=== PATIENT | male | born 1945 | race Caucasian/White ===

== ENCOUNTER → 2017-02-25 | Outpatient (CLI) | payer MEDICARE, OTHER ==
[~2017-02-25] MED LIST: ACET-2429 PO; AMLO5TAB2 PO; ASPI-586 PO; ASPI-875 PO; ATOR80TA2 PO; ATRV10T PO; CLOP75TA28 PO; FURO40TA4 PO; INSU100C4 SQ; INSU100I10 SQ; LISI-552 PO; LISI20TA PO; METO-272 PO; MULT-1029 PO; NAPR1TAB21 PO; NAPR220T66 PO; NIA500ERT PO; PANT40TA3 PO; PGLT30T PO; PIOG45TA PO; POTA10TA6 PO; SENN1TAB6 PO; SITA1TAB2 PO
== END ==
LOC: CARD 10:06
PROVIDERS: ATTEND Internal Medicine Cardiovascular Disease
DX: I25.10 Atherosclerotic heart disease of native coronary artery without angina pectoris (principal); I10 Essential (primary) hypertension; R06.02 Shortness of breath; I73.9 Peripheral vascular disease, unspecified
CPT/HCPCS: 93306

== ENCOUNTER → 2017-03-01 | Outpatient (CLI) | payer MEDICARE, OTHER ==
[~2017-03-01] VITALS: Ht 177.8 cm; Wt 94.8 kg
[~2017-03-01] MED LIST changes: +CATHETER FLUSH 10 ML SYR IV PRN; +REGADENOSON 0.4 MG/5 ML SYR (LEXISCAN) IV ONE
[2017-03-01 09:39] VITALS: BP 195/69
--- NOTE | 2017-03-01 12:48 | STRESS TEST ---
DATE OF SERVICE: 02/28/2017 PROCEDURE: Lexiscan Myoview Stress Test Baseline heart rate is 75. Baseline blood pressure is 195/69. Baseline EKG is sinus rhythm with no ischemic changes. IN SUMMARY: The patient was injected with 11.0 mCi of technetium-99 Myoview and the resting images were obtained. Then, the patient received 0.4 mg of Lexiscan followed by 32.0 mCi of technetium-99 Myoview. Throughout the test, there were no EKG changes. The resting and stress images were reviewed and compared in the short axis, horizontal long axis, and vertical long axis views. Review of the images showed slightly patchy uptake with mild decreased uptake at the mid to apical anterolateral wall with mild reversibility. SSS is 4, SDS 3, TID value 0.99. On the gated images, the left ventricle appeared to be dilated with end diastolic volume 156 mL and systolic volume 97 mL. Diffuse left ventricular hypokinesia with calculated ejection fraction 38%. IN CONCLUSION: 1. The patient tolerated Lexiscan well. 2. Mild ischemia involving the mid to apical anterolateral wall and inferolateral wall. 3. Prominent left ventricle with diffuse left ventricular hypokinesia with calculated ejection fraction 38%. Job ID: [id number] DocumentID: [id number] Dictated Date: 03/01/2017 11:55:04 [facility] Date: 03/01/2017 12:29:42 Dictated By: DEYSI GREY MD
== END ==
LOC: CARD 07:42
PROVIDERS: ATTEND Internal Medicine Cardiovascular Disease
DX: I25.10 Atherosclerotic heart disease of native coronary artery without angina pectoris (principal); I10 Essential (primary) hypertension; R06.02 Shortness of breath; I73.9 Peripheral vascular disease, unspecified
CPT/HCPCS: 78452; 93017

== ENCOUNTER 2019-07-19 08:44 | Day surgery (SDC) | payer MEDICARE, OTHER ==
[2019-07-19] VITALS (13 sets, daily range): BP systolic 136–173; BP diastolic 54–82
[~2019-07-19] VITALS: Ht 180 cm; Wt 87.0 kg
[~2019-07-19 08:44] MED LIST changes: -ACET-2429 PO; +ACET650T41 PO; +AMLO10TA7 PO; +ASPI-983 PO; +ASPI-999 PO; +ATOR10TA66 PO; -CATHETER FLUSH 10 ML SYR IV PRN; +CLON0.1T PO; +GABA-486 PO; +HYDR-3922 PO; -METO-272 PO; +METO50TA7 PO; +MTP100TCR PO; +MUPI22OI2 NS; +NIAC-4 PO; -REGADENOSON 0.4 MG/5 ML SYR (LEXISCAN) IV ONE; +SENN-229 PO; -SENN1TAB6 PO; +SITA1TBM7 PO; +TRM50T PO
[2019-07-19] MEDS ORDERED: NS IV 1000 ML 1,000 ML ONE (08:51)
[2019-07-19] MEDS ORDERED: LIDOCAINE 1% INJ 20 ML 20 ML VIAL ONE (08:51)
[2019-07-19] MEDS ORDERED: HEParin (CATH LAB) 2,000 ML IV ONE (08:51)
[2019-07-19] MEDS: NS IV 1000 ML 1,000 ML IV SCH ×3 (09:02→20:33)
[2019-07-19 09:20] LABS: HEMOGLOBIN 13.5 G/DL (13.3-17.7); MEAN PLATELET VOLUME 9.3 FL (7.4-10.4); RED CELL DISTRIBUTION WIDTH 13.7 % (10.0-14.5); WHITE BLOOD COUNT 9.6 10^3/uL (4.3-11.0)
[2019-07-19 09:36] LABS: PROTHROMBIN TIME PATIENT 13.2 SEC (12.2-14.7)
[2019-07-19] MEDS ORDERED: HYDR-3923 PO (09:40)
[2019-07-19] MEDS ORDERED: MULT-1030 PO (09:40)
[2019-07-19] MEDS ORDERED: SITA1TBM7 PO (09:40)
[2019-07-19 09:42] LABS: ALBUMIN 4.2 GM/DL (3.2-4.5); BILIRUBIN,TOTAL 0.5 MG/DL (0.1-1.0); CALCIUM 9.3 MG/DL (8.5-10.1); CREATININE SERUM 1.59 MG/DL (0.60-1.30); POTASSIUM 4.4 MMOL/L (3.6-5.0); TOTAL PROTEIN 7.5 GM/DL (6.4-8.2)
[2019-07-19] MEDS ORDERED: fentaNYL INJECTION 100 MCG/2 ML AMP ONE (12:17)
[2019-07-19] MEDS ORDERED: MIDAZOLAM 5 MG/5 ML (VERSED) VIAL ONE (12:17)
[2019-07-19] MEDS ORDERED: HEParin 1000 UNIT/ML (10ML VIAL) FOR BOLUS ONE (12:17)
[2019-07-19] MEDS ORDERED: NITRO DRIP 25000 MCG/D5W 250 ML IV ONE (13:15)
--- NOTE | 2019-07-19 14:42 | Cardiac Procedure Note-CS/ASA ---
Pre-Procedure Note Pre-Op Procedure Note H&P Reviewed The H&P was reviewed, patient examined and no changes noted. Date H&P Reviewed: Jul 19, 2019 Time H&P Reviewed: 11:00 Conscious Sedation Pre-Proced Time 11:00 ASA Score 3 For ASA 3 and 4: Consider anesthesia and medical clearance. Also, for patients with a history of failed moderate sedation consider anesthesia. Airway Lungs Heart ASA score ASA 1: a normal healthy patient ASA 2: a patient with a mild systemic disease (mid diabetes, controlled hypertension, obesity x ASA 3: a patient with a severe systemic disease that limits activity (angina, COPD, prior Myocardial infarction) ASA 4: a patient with an incapacitating disease that is a constant threat to life (CHF, renal failure) ASA 5: a moribund patient not expected to survive 24 hrs. (ruptured aneurysm) ASA 6: a declared brain- patient whose organs are being harvested. For emergent operations, add the letter E after the classification Mallampati Classification Grade 3 Sedation Plan Analgesia, Amnesia, Plan communicated to team members, Discussed options with patient/fam, Discussed risks with patient/fam The patient is an appropriate candidate to undergo the planned procedure, sedation, and anesthesia. The patient immediately re-assessed prior to indication. DEYSI GREY MD Jul 19, 2019 14:42
[2019-07-19] MEDS ORDERED: PATIENT MAY USE OWN MEDS, ALL PO SCH (14:45)
[2019-07-19] MEDS ORDERED: ASPIRIN 325 MG (5 GR) TABLET ONE (14:47)
[2019-07-19] MEDS ORDERED: CLOPIDOGREL 300 MG (PLAVIX) TABLET PO ONE (14:47)
--- NOTE | 2019-07-19 14:49 | Peripheral Report ---
Peripheral Report Physician (s)/Qualitative Field Coordinator (s) Physician DEYSI GREY MD Pre-Procedure Diagnosis Pre-Procedure Diagnosis: Peripheral arterial disease Post-Procedure Note Procedure Start Date: Jul 19, 2019 Name of Procedure: Abdominal aortogram with bilateral runoff Third order Additional imaging Stent to the left popliteal artery 2 stents to the left SFA Balloon angioplasty to the left popliteal, SFA and left iliac Findings/Procedure Note PROCEDURE NOTE: 74-year-old gentleman with extensive peripheral arterial disease, history of left iliac stent, right renal artery stent, has been having leg pain and abnormal HALLIE decided to proceed with peripheral angiogram possible angioplasty. After explaining the procedure to the patient, all pros and cons were explained, all questions were answered. The patient signed the consent and then he was placed on the cardiac catheterization laboratory. The patient was placed on the cardiac catheterization laboratory. Groin was prepped SL fashion local anesthesia was used. Sheath placed in the right femoral artery, 5 Vietnamese, pigtail catheter advanced to the abdominal aorta and abdominal aortogram was done, runoff to the right leg was done through a pigtail catheter, rim catheter advanced and runoff to the left leg was done then I advanced long stork wire and exchanged the 5 Vietnamese sheath into 6 Vietnamese 45 sheath, 4000 units of heparin given, patient has multiple segment of severe stenosis in the left SFA and left popliteal artery, multiple balloon angioplasty were done then deployment of absolute Pro 6 x 100 at the left popliteal, another 6 x 80 in the proximal SFA and then another 6 x 60 overlapping with the other one. Postdilatation with 5-100 balloon was done. At the end of the procedure angina gram showed excellent results with good flow down to the foot, some disease at the distal tibial arteries, I was unable to pullback the sheath, after multiple attempts without success I advanced the dilator again and try to pull the sheath and at that time there was a tear in the sheath. I removed the dilator and advanced this trait catheter down to the SFA and and try to pull the sheath without success at that point I advanced 4 x 60 balloon and did balloon inflation in the left iliac artery and using the balloon as an anchor I was able to push the sheath back to the abdominal aorta then the balloon deflated and the sheath and the balloon were removed and a short 6 Vietnamese sheath was placed I left the stork wire in the left leg and advanced the rim catheter then did runoff to the leg then another imaging to the iliac artery then advanced the rim catheter to the abdominal aorta and evaluated the bifurcation. No complication noted. Closure device was deployed without complication. FINDINGS: 1. Mild atherosclerotic disease in the abdominal aorta, patent stent to the right renal artery, mild disease in the left renal artery, normal mesenteric arteries. Heavy calcification of the bifurcation. 2. Patent stent in the left iliac artery, severe stenosis at multiple segment of the left SFA and popliteal artery, balloon angioplasty with multiple inflation then deployment of 3 stents starting proximally with absolute Pro 6 x 60 followed by 6 x 80 and down at the popliteal artery 6 x 100 with excellent results. An excellent flow down to the foot, some disease at the tibial artery was noted. 3. Mild to moderate disease at the right proximal SFA, more significant disease at the mid to right SFA. Moderate disease at the trifurcation. CONCLUSIONS: 1. Severe peripheral arterial disease with complex intervention deployment of 3 stents at the left maximal and mid and distal SFA and popliteal artery using absolute Pro 6 x 60 followed by 6 x 80 and distally 6 x 100 with excellent results. 2. Moderate severe stenosis at the mid right SFA, moderate disease at the trifurcation 3. Patent stent in the right renal artery, mild disease of the left renal artery, heavily calcified abdominal aorta and bifurcation. 4. Disruption of the left long 6 Vietnamese sheath without the ability of removing the sheath after multiple attempts I was able to push it back and remove it using balloon inflated in the left iliac artery and used as an anchor to pull the sheath. DISCUSSION AND RECOMMENDATIONS: Continue on aspirin and Plavix and maximize medical therapy Anesthesia Type: Conscious Sedation Estimated blood loss (mL): 50 ml Contrast Amount: 100 ml Total Radiation Dose: 755 mGy Post-Procedure Diagnosis Post-operative diagnosis: Claudication/peripheral artery disease Renal artery stenosis Hypertension Coronary artery disease DEYSI GREY MD Jul 19, 2019 14:49
[2019-07-19] MEDS: hydrALAZINE (APRESOLINE) 25 MG TAB PO SCH (18:40)
[2019-07-19] MEDS: KCL 10 MEQ TAB (MICRO K) PO SCH (20:33)
[2019-07-19] MEDS ORDERED: GABAPENTIN 100 MG (NEURONTIN) CAP PO SCH (21:00)
[2019-07-19] MEDS ORDERED: PANTOPRAZOLE 40 MG (PROTONIX) TAB PO SCH (21:00)
[2019-07-19] MEDS ORDERED: INSULIN GLARGINE HUM REC ANLOG 42 UNIT SQ SCH (21:00)
[2019-07-19] MEDS ORDERED: [UNRECOGNIZED DRUG - OTHER] SQ SCH (21:00)
[2019-07-20] VITALS: BP 150/69
[2019-07-20] MEDS: NS IV 1000 ML 1,000 ML IV SCH ×2 (03:14→05:12)
[2019-07-20 04:00] VITALS: BP 178/62
[2019-07-20 04:25] LABS: HEMOGLOBIN 12.3 G/DL (13.3-17.7); MEAN PLATELET VOLUME 9.1 FL (7.4-10.4); RED CELL DISTRIBUTION WIDTH 13.9 % (10.0-14.5); WHITE BLOOD COUNT 8.8 10^3/uL (4.3-11.0)
[2019-07-20 04:52] LABS: CALCIUM 8.7 MG/DL (8.5-10.1); CREATININE SERUM 1.48 MG/DL (0.60-1.30); POTASSIUM 3.9 MMOL/L (3.6-5.0)
[2019-07-20] MEDS: hydrALAZINE (APRESOLINE) 25 MG TAB PO SCH (05:13)
[2019-07-20] MEDS: KCL 10 MEQ TAB (MICRO K) PO SCH (05:13)
[2019-07-20] MEDS ORDERED: MULTIVIT W/MINERALS TAB (THERAGRAN M) PO SCH (07:00)
--- NOTE | 2019-07-20 07:59 | Cardiology Progress Note ---
Subjective Date Seen by Provider: Jul 20, 2019 Time Seen by Provider: 07:56 Subjective/Events-last exam Patient is laying down in bed, feeling better. No new complaint, groin is healing well Review of Systems General: No Chills, No Night Sweats, No Fatigue, No Malaise, No Appetite, No Other HEENT: No Head Aches, No Visual Changes, No Eye Pain, No Ear Pain, No Dysph renato, No Sinus Congestion, No Post Nasal Drip, No Sore Throat, No Other Pulmonary: No Dyspnea, No Cough, No Pleuritic Chest Pain, No Other Cardiovascular: No: Chest Pain, Palpitations, Orthopnea, Paroxysmal Noc. Dyspnea, Edema, Lt Headedness, Other Objective-Cardiology Exam Last Set of Vital Signs Vital Signs 07/20/19 04:00 Temp 36.6 Pulse 71 Resp 16 B/P (MAP) 178/62 (100) Pulse Ox 97 O2 Delivery Room Air Capillary Refill : Less Than 3 Seconds I&O Intake and Output 07/20/19 00:00 Intake Total 200 ml Output Total 0 ml Balance 200 ml Intake Oral 200 ml Output Urine Total 0 ml General: Alert, Oriented X3, Cooperative HEENT: Atraumatic, PERRLA Neck: Supple, No JVD, No Thyromegaly Lungs: Clear to Auscultation, Normal Air Movement Heart: Regular Rate, Normal S1, Normal S2, No Murmurs Abdomen: Normal Bowel Sounds, Soft, No Tenderness, No Hepatosplenomegaly, No Masses Extremities: No Clubbing, No Cyanosis, No Edema, Normal Pulses, No Tenderness/Swelling Skin: No Rashes, No Breakdown, No Significant Lesion Neuro: Normal Gait, Normal Speech, Strength at 5/5 X4 Ext, Normal Tone, Sensati on Intact Psych/Mental Status: Mental Status NL, Mood NL Results Lab Laboratory Tests 07/19/19 09:10 07/20/19 04:03 A/P-Cardiology Admission Diagnosis Peripheral arterial disease Hypertension Hyperlipidemia Coronary artery disease Assessment/Plan Peripheral arterial disease, extensive disease, status post complex intervention with deployment of 3 stents in the left SFA with excellent results. Difficulty removing the sheath from the groin. 1. Severe peripheral arterial disease with complex intervention deployment of 3 stents at the left maximal and mid and distal SFA and popliteal artery using absolute Pro 6 x 60 followed by 6 x 80 and distally 6 x 100 with excellent results. 2. Moderate severe stenosis at the mid right SFA, moderate disease at the trifu rcation 3. Patent stent in the right renal artery, mild disease of the left renal artery, heavily calcified abdominal aorta and bifurcation. 4. Disruption of the long 6 Macedonian sheath without the ability of removing the sheath after multiple attempts I was able to push it back and remove it using b alloon inflated in the left iliac artery and used as an anchor to pull the sheath. Hypertension, resume all medication monitor blood pressure Chronic kidney insufficiency, educated on drinking fluid Hyperlipidemia, monitor lipids Coronary artery disease Clinical Quality Measures DVT/VTE Risk/Contraindication: Risk Factor Score Per Nursin RFS Level Per Nursing on Admit: 2=Moderate DEYSI GREY MD Jul 20, 2019 07:59
--- NOTE | 2019-07-20 08:01 | Discharge Inst-Post CATH ---
Discharge Inst-CATH/EP Problems Reviewed?: Yes Post Cardiac Cath/EP D/C Inst Follow Up/Plan Appointment with Dr. GREY's office next week <b>CARDIAC CATH/EP PROCEDURE DISCHARGE INSTRUCTIONS</b> ACTIVITY * Go Home directly and rest. * Limit activity of the leg (or wrist if it was used) for 7 days including aerobics, swimming, jogging, bicycling, etc. * Restrict stair-climbing for 7 days if possible, if not, climb up with your non-cath leg, then bring together on the same step. * Avoid lifting, pushing, pulling or excessive movement of the affected extremity for 7 days. * Customary sexual activity may be resumed after 2 days-use caution not to use a position that strains or causes pain to the affected extremity. * No driving for 24 hours. * NO SMOKING. * Avoid straining for bowel movements for 7 days. * Gentle walking on level ground is allowed. * Returning to work will depend on the type of procedure and the results. Your doctor will discuss this with you. CALL YOUR DOCTOR FOR ANY OF THE FOLLOWING: *If bleeding from the puncture site occurs- Apply gentle pressure to site with clean cloth and call your doctor or EMS. * If a knot or lump forms under the skin, increases in size, or causes pain. * If bruising appears to be worsening or moving further down your leg instead of disappearing. * Temperature above 101 F. CARE OF YOUR GROIN INCISION; * Bruising or purple discoloration of the skin near the puncture site is common. * You may shower only, no bathtub bathing for 5 days. Be careful to avoid slipping as your leg may feel stiff. * If a closure device was used on your femoral artery, please see the attached guide regarding care of the device and your leg. * Leave dressing on FOR 24 hours. CARE OF YOUR WRIST INCISION; * Bruising or purple discoloration of the skin near the puncture site is common. * You may shower. * DO NOT submerge wrist. * Leave dressing on FOR 24 hours. DEYSI GREY MD Jul 20, 2019 08:01
[2019-07-20] MEDS ORDERED: amLODIPine 10 MG (NORVASC) TAB PO SCH (09:00)
[2019-07-20] MEDS ORDERED: FUROSEMIDE 40 MG (LASIX) TAB PO SCH (09:00)
[2019-07-20] MEDS ORDERED: ASPIRIN E.C. 81 MG (ECOTRIN) TAB PO SCH (09:00)
[2019-07-20] MEDS ORDERED: meTOprolol SUCCINATE 100 MG (TOPROL XL) TAB PO SCH (09:00)
[2019-07-20] MEDS ORDERED: lisINopril 20 MG (PRINIVIL) TABLET PO SCH (09:00)
[2019-07-20] MEDS ORDERED: CLOPIDOGREL 75 MG (PLAVIX) TABLET PO SCH (09:00)
== END 2019-07-20 08:40 | disposition home or self-care (01) ==
LOC: CATH 08:44 → CSD 16:30 → CATH 07-20 08:40
PROVIDERS: ATTEND Internal Medicine Cardiovascular Disease
DX: I70.0 Atherosclerosis of aorta (principal); I70.1 Atherosclerosis of renal artery; I25.10 Atherosclerotic heart disease of native coronary artery without angina pectoris; I77.1 Stricture of artery; I13.0 Hypertensive heart and chronic kidney disease with heart failure and stage 1 through stage 4 chronic kidney disease, or unspecified chronic kidney disease; N18.2 Chronic kidney disease, stage 2 (mild); I08.3 Combined rheumatic disorders of mitral, aortic and tricuspid valves; I25.2 Old myocardial infarction; I65.29 Occlusion and stenosis of unspecified carotid artery; I42.9 Cardiomyopathy, unspecified; I50.22 Chronic systolic (congestive) heart failure; E11.22 Type 2 diabetes mellitus with diabetic chronic kidney disease; E78.5 Hyperlipidemia, unspecified; M19.90 Unspecified osteoarthritis, unspecified site; M51.36 Other intervertebral disc degeneration, lumbar region; M47.896 Other spondylosis, lumbar region; Z79.02 Long term (current) use of antithrombotics/antiplatelets; Z79.899 Other long term (current) drug therapy; Z79.82 Long term (current) use of aspirin; Z79.84 Long term (current) use of oral hypoglycemic drugs; Z87.891 Personal history of nicotine dependence
CPT/HCPCS: 36248; 36415; 37220; 37226; 75630; 80048; 80053; 80061; 82962; 85027; 85347; 85610; 85730; 87081

== ENCOUNTER → 2020-06-07 | Outpatient (CLI) | payer MEDICARE, OTHER ==
[~2020-06-07] MED LIST changes: +AMLO-251 PO; -AMLO10TA7 PO; +ASPI-1238 PO; -ASPI-983 PO; +CLN.1T PO; -CLON0.1T PO; +HYDR-3923 PO; +MULT-1030 PO; -PANT40TA3 PO; +PANT40TA52 PO
== END ==
LOC: CARD 12:47
PROVIDERS: ATTEND Physician Assistant
DX: I25.10 Atherosclerotic heart disease of native coronary artery without angina pectoris (principal)
CPT/HCPCS: 93306

== ENCOUNTER 2021-09-07 10:46 | Inpatient (IN) | payer MEDICARE, OTHER ==
[~2021-09-07] VITALS: Ht 177 cm; Wt 86.4 kg
[~2021-09-07 10:46] MED LIST changes: -LISI-552 PO; +LISI20TA26 PO; +POTA-160 PO; -POTA10TA6 PO
[2021-09-07] MEDS ORDERED: HEParin 1000 UNIT/ML (10ML VIAL) FOR BOLUS ONE (10:53)
[2021-09-07] MEDS ORDERED: NS IV 1000 ML 1,000 ML ONE (10:53)
[2021-09-07] MEDS ORDERED: MIDAZOLAM 5 MG/5 ML (VERSED) VIAL ONE (10:53)
[2021-09-07] MEDS ORDERED: LIDOCAINE 2% 20 ML (XYLOCAINE) VIAL ONE (10:53)
[2021-09-07] MEDS ORDERED: fentaNYL INJ 100 MCG/2 ML AMP ONE (10:53)
[2021-09-07] MEDS ORDERED: HEParin (CATH LAB) 2,000 ML IV ONE (10:54)
[2021-09-07] MEDS ORDERED: NITRO DRIP 25000 MCG/D5W 0 ML IV ONE (11:12)
[2021-09-07] MEDS ORDERED: CLOPIDOGREL 300 MG (PLAVIX) TABLET PO ONE (11:34)
--- NOTE | 2021-09-07 11:42 | Conscious Sedation/ASA ---
Conscious Sedation Pre-Proced Time 10:35 ASA Score 3 For ASA 3 and 4: Consider anesthesia and medical clearance. Also, for patients with a history of failed moderate sedation consider anesthesia. Airway Lungs Heart ASA score ASA 1: a normal healthy patient ASA 2: a patient with a mild systemic disease (mid diabetes, controlled hypertension, obesity x ASA 3: a patient with a severe systemic disease that limits activity (angina, COPD, prior Myocardial infarction) ASA 4: a patient with an incapacitating disease that is a constant threat to life (CHF, renal failure) ASA 5: a moribund patient not expected to survive 24 hrs. (ruptured aneurysm) ASA 6: a declared brain- patient whose organs are being harvested. For emergent operations, add the letter E after the classification Mallampati Classification Grade 3 Sedation Plan Analgesia, Amnesia, Plan communicated to team members, Discussed options with patient/fam, Discussed risks with patient/fam The patient is an appropriate candidate to undergo the planned procedure, sedation, and anesthesia. The patient immediately re-assessed prior to indication. DEYSI GREY MD Sep 07, 2021 11:42
[2021-09-07] MEDS ORDERED: PATIENT MAY USE OWN MEDS, ALL PO SCH (11:45)
--- NOTE | 2021-09-07 11:49 | Consultation-Cardiology ---
HPI-Cardiology Cardiology Consultation Date of Consultation 09/07/21 Date of Admission Time Seen by Provider: 11:42 Indication: Acute myocardial infarction HPI 76 years old gentleman with extensive history of coronary artery disease, peripheral arterial disease and malignant hypertension. Went to [facility] emergency room for increasing shortness of breath, had mild retrosternal chest pain, had dynamic EKG with T wave changes with ST elevation in the anterior wall resolved then recurred prior to his transfer to the hospital. On my evaluation he denied any chest pain, still having significant shortness of breath requiring 15 L of oxygen. I started him on Vapotherm. He received antibiotic in the emergency room and [place] in addition to Lovenox and aspirin Home Medications & Allergies Allergies: Coded Allergies: No Known Drug Allergies (Unverified , 07/19/15) Home Medication List Reviewed: Yes [id number]-Bqhcer Hx Patient Social History Marital Status: Employed/Student: retired Former smoker/When Quit: May 31, 2000 Type Used: Cigarettes Recent Hopitalizations: Yes (15 YEARS AGO) Immunizations Up To Date Tetanus Booster (TDap): More than 5yrs Date of Pneumonia Vaccine: Feb 03, 2017 Date of Influenza Vaccine: Feb 15, 2019 Past Medical History Discussed below Family Medical History Family History: Myocardial infarction 19 FATHER 19 MOTHER Review of Systems-General Review of Systems Constitutional: see HPI, malaise, weakness EENTM: see HPI, no symptoms reported Respiratory: see HPI, cough, dyspnea on exertion, orthopnea Cardiovascular: see HPI, chest pain; No edema, No Hx of Intervention, No palpitations, No syncope, No vascular heart diseas, No other Gastrointestinal: no symptoms reported, see HPI Genitourinary: no symptoms reported, see HPI Musculoskeletal: no symptoms reported, see HPI Skin: no symptoms reported, see HPI Psychiatric/Neurological: No Symptoms Reported, See HPI Reviewed Test Results Reviewed Test Results Lab Labs from [place] were reviewed Physical Exam Physical Exam Vital Signs Capillary Refill : Height, Weight, BMI Height: 5'11.00" Weight: 212lbs. 9.0oz. [id number]; 26.85 BMI Method:Stated General Appearance: No Apparent Distress, WD/WN Eyes: Bilateral Eye Normal Inspection, Bilateral Eye PERRL, Bilateral Eye EOMI HEENT: PERRL/EOMI, TMs Normal, Normal ENT Inspection, Pharynx Normal, Moist Mucous Membranes Neck: Full Range of Motion, Normal Inspection, Non Tender, Supple, Carotid Bruit Respiratory: Chest Non Tender, Normal Breath Sounds, No Accessory Muscle Use, No Respiratory Distress Cardiovascular: Regular Rate, Rhythm, No Edema, No JVD, Normal Peripheral Pulses, Systolic Murmur, Gallop/S3 Gastrointestinal: Normal Bowel Sounds, No Organomegaly, No Pulsatile Mass, Non Tender, Soft Back: Normal Inspection, No CVA Tenderness, No Vertebral Tenderness Extremity: Normal Capillary Refill, Normal Inspection, Normal Range of Motion, Non Tender, No Calf Tenderness, No Pedal Edema Neurologic/Psychiatric: Alert, Oriented x3, No Motor/Sensory Deficits, Normal Mood/Affect Skin: Normal Color, Warm/Dry Lymphatic: No Adenopathy A/P-Cardiology Admission Diagnosis Acute myocardial infarction Coronary artery disease Diabetes mellitus Hypertension Assessment/Plan Acute myocardial infarction with ST elevation occurred on arrival of the ambulance to bring him to [place] requiring emergency cardiac catheterization carried out with stenting of the LAD. We will continue monitoring, started on aspirin and Plavix, received Lovenox in [place] and heparin in the [employer] Acute respiratory failure combination of heart failure and pneumonia. Started on antibiotic, I will add diuretics and monitor Pneumonia, managed by primary care team. Hospitalist was notified Sepsis, elevated lactic acid. Coronary artery disease history of stent to the LAD using Promus 2.2512 mm done in July 2015, at that time he had 50 percent right coronary artery stenosis that was treated conservatively. Cardiac catheterization March 10, 2017 revealing 90% stenosis at the mid circumflex artery, 60% stenosis proximally, successful balloon angioplasty then stent deployment to the mid circumflex artery using 2.523 mm Xience Alpine to the mid artery, the proximal portion was improved to 20% residual with balloon angioplasty. Patent stent in the LAD, mild disease in the right coronary artery nonobstructive disease. Cardiac catheterization was done on September 07, 2021 showing severe ostial and proximal LAD successful angioplasty and stenting using wendi point stent 2.75 x 28 expanded to 3 mm with excellent results. Mid LAD has moderate stenosis distal LAD has severe stenosis, there is moderate stenosis in the mid circumflex t coronary artery and mild to moderate stenosis in the mid right coronary artery Malignant hypertension, resistant to multiple medication, I will restart his home medication monitor tolerance and response Episodes of dizziness, lightheaded at home. We will monitor his blood pressure response to blood pressure medication Renal artery stenosis-angiogram done March 10, 2017 revealed severe right renal artery stenosis. Underwent renal angiogram with stenting to the right renal artery using HERCULINK ELITE [id number] with excellent results minimal residual stenosis in March 17, 2017. Continue to monitor. Intolerance to clonidine secondary to severe dizziness. Peripheral vascular disease- Angiogram done March 10, 2017 revealed moderate disease to SFA. Was unable to visualize arteries below the knee secondary to limiting contrast exposure. Peripheral angiogram on March 24, 2017 revealing severe left iliac artery stenosis, Balloon angioplasty and deployment OMNILINK ELITE 7X39 expanded to 7.3 with excellent results, mild to moderate disease in the left lower extremity down to the trifurcation. Patent stent in the right iliac artery with alwe-ba-mwiggtie disease down to the trifurcation. Had abnormal HALLIE in August 2017. Complaining of increased claudication pain, HALLIE is worse in May. Did complex intervention in July 2019 with severe disease and deployment of 3 stents of the left SFA and popliteal artery using absolute Pro 6 x 60 followed by 6 x 80 and distally 6 x 100 with excellent results. Moderate to severe stenosis at the midright SFA with moderate disease at the trifurcation, patent stent in the right renal artery, mild disease at the left renal artery, heavily calcified abdominal aorta, complication with disruption of the long 6 Puerto Rican sheath that require significant maneuvering to remove the full catheter. Excellent results. ABIs done in September 2019, denies any increased claudication pain, will continue to monitor. Baseline EKG abnormality with sinus rhythm, first-degree AV block, left ventricular hypertrophy pattern early repolarization Acute on chronic renal insufficiency, history of chronic kidney disease stage III. Continue to monitor Congestive heart failure, chronic compensated left ventricular systolic dysfunction, last echo was done on July 04, 2019 showing normal LV size with ejection fraction 60 percent, left atrial dilatation, aortic valve sclerosis, mild mitral regurgitation, estimated PA pressure 25 mmHg. I will repeat 2D echo History of stroke over 20 years ago with mild residual facial droop and occasional slurred speech, no other residual weakness Hyperlipidemia, maintained on Lipitor 10 mg daily and niacin daily, controlled. Continue to monitor. Diabetes mellitus, hold Metformin and I recommend discontinuation of Metformin, followed and managed by primary care physician Arthritis, degenerative disc disease, back pain and lower extremity pain, possible referral for orthopedic surgeon History of tobaccoism stopped over 20 years ago. DEYSI GREY MD Sep 07, 2021 11:49
--- NOTE | 2021-09-07 11:58 | Cardiac Cath Report ---
Cardiac Cath Report Physician (s)/Vegetable Washer (s) Physician DEYSI GREY MD Pre-Procedure Diagnosis Pre-Procedure Diagnosis: Acute RI Post-Procedure Note Name of Procedure: Coronary angiogram Emergency stenting of the LAD Findings/Procedure Note PROCEDURE NOTE: 76 years old gentleman with extensive cardiac history, went to [facility] emergency room and noted to have elevation in ST segment in the anterior leads that resolved fairly quickly while he was in [place]. Troponin was elevated. Patient was getting ready for a transfer to the intensive care unit and EMS did another EKG showed another ST elevation in V2 and V3. I was notified and we brought him for emergency cardiac catheterization. After explaining the procedure to the patient, all pros and cons were explained, all questions were answered. The patient signed the consent and then he was placed on the cardiac catheterization laboratory. Groin was prepped SL fashion local anesthesia was used. Sheath placed in the right femoral artery. Mairlyn right and left catheter were used to access the coronary system. I was unable to cross the aortic valve with a pigtail. Patient received 5000 units of heparin, he received Lovenox in [place] emergency room. EBU 3.5 guide was advanced to the left coronary system, BMW wire was advanced and parked distally, predilatation with 2.5 x 20 mm balloon was done, d oor to balloon time was 44 minutes. Door to establishing flow was 40 minutes. Then I deployed wendi point stent 2.75 x 28 mm expanded to 3.0 mm, angiogram showed excellent results At the end of the procedure the sheath was removed. Closure device was deployed FINDINGS: Hemodynamics LV was not measured, aortic valve was not crossed Aorta 107/40 mean of 53 ANATOMY: Left Main is free of obstructive disease Left Anterior Descending is moderate in size, stent in the mid LAD is patent, there is severe ostial and proximal LAD stenosis, successful balloon angioplasty then stenting using wendi point stent 2.75 x 28 mm expanded to 3.0 mm with good results, distal LAD has severe stenosis that is too small for intervention Left Circumflex is calcified artery with moderate stenosis in the midportion. Right Coronary Artery is dominant artery with mild to moderate disease at the midportion Fluoroscopy showed heavy calcification, I was unable to advance J-wire across the iliac and and lower abdominal aorta, used a RentHopq wire and exchange wire afterward CONCLUSION: 1. Acute myocardial infarction with emergency stenting of the ostial/proximal LAD with excellent results 2. Severe ostial and proximal LAD stenosis with successful deployment of wendi point stent 2.75 x 28 mm expanded to 3.0 mm with excellent results. Severe stenosis at the distal LAD very small artery not amendable to intervention 3. Patent stent in the circumflex artery with moderate stenosis at the distal circumflex artery 4. Dominant right coronary artery with mild to moderate disease nonobstructive disease 5. Heavily calcified abdominal aorta and iliac arteries DISCUSSION AND RECOMMENDATION: Continue on aspirin and Plavix, I will increase Lipitor to 80 mg daily and monitor tolerance and response Anesthesia Type: Conscious Sedation Estimated blood loss (mL): 35 ml Contrast Amount: 100 ml Total Radiation Dose: 1227 mGy Post-Procedure Diagnosis Post-operative diagnosis: Acute myocardial infarction Coronary artery disease Pneumonia Sepsis DEYSI GREY MD Sep 07, 2021 11:58
[2021-09-07] MEDS ORDERED: ONDANSETRON 4 MG/2 ML (SDV) Z0FRAN ONE (12:46)
[2021-09-07] MEDS: NS IV 1000 ML 1,000 ML IV SCH ×2 (12:52→22:41)
[2021-09-07] MEDS ORDERED: ONDANSETRON 4 MG/2 ML (SDV) Z0FRAN IVP PRN (13:00)
[2021-09-07] MEDS ORDERED: CLOPIDOGREL 300 MG (PLAVIX) TABLET PO NR (14:30)
[2021-09-07] MEDS: hydrALAZINE (APRESOLINE) 25 MG TAB PO SCH ×2 (15:02→22:46)
--- NOTE | 2021-09-07 15:27 | Tele-ICU Consult ---
History of Present Illness History of Present Illness Date Seen by Provider: Sep 07, 2021 Time Seen by Provider: 15:27 Date of Admission (Tele-ICU Physician , consultation) Available chart/ vitals / labs / Images reviewed H&P is from er notes Patient's information available about PMH, Shx, Fhx allergy reviewed in EMR. ROS as per chart and RN report Now in ICU, hemodynamically stable Video assessment done using teleICU camera, rest of exam as per RN Discussed with RN. Consultants: osiel Hospital course: 09/07 to [facility] with SOB - dx with nstemia and PNA 08/29- s/p cath with PCI to LAD , on VT 40 L 100% A/P STEMI -09/07 with known CAD - s/p cath 09/07 with PCI to LAD - as per [facility] -lovenox in [facility] given , asa -ECHO Elev lactate ( 28 with normal 20 as per [facility] essay range - ? due to hypoxia - patient was hypertensive 200/132 on admission - doubt severe sepsis Acute hypoxic resp failure - PNA vs CHF vs ? PE - presented with SOB and hypoxia in [place] - no cxr report available - empiricalluy given cefepime - follow - BNP is sligtly elevaated - will follow cxr here - cont on Vapotherm now - ? diuresis Suspected PNA - NEG for covid , mucoplasma and flu in [facility] - follow on abx now , order cxr and pct DM II - ISS , follow ISAI/CKD - cr elev to 1.8 with baseline 1.5 - moinitor Lines : (Central Line Necessity Reviewed) Mccord: OG: Nutrition: Analgesia: Anxiety/ delirium VTE Prophylaxis: received eyal full dose - follow post cath orders Stress Ulcer Prophylaxis: po Plans in collaboration with bedside consultants and IM MDs. Discussed with RN to reach out if any questions or concerns A total of 31 minutes of critical care time was devoted to this patient today, required to treat and/or prevent further deterioration of critical care co ndition ( as above ) . Reason for Visit: Acute myocardial infarction Allergies and Home Medications Allergies Coded Allergies: No Known Drug Allergies (Unverified , 07/19/15) Home Medications Amlodipine Besylate 10 Mg Tablet, 10 MG PO DAILY, (Reported) Aspirin 81 Mg Tablet., 81 MG PO DAILY, (Reported) Atorvastatin Calcium 10 Mg Tablet, 10 MG PO 1600, (Reported) Clopidogrel Bisulfate 75 Mg Tablet, 75 MG PO 1600, (Reported) Furosemide 40 Mg Tablet, 40 MG PO DAILY, (Reported) Gabapentin 100 Mg Capsule, 100 MG PO HS, (Reported) Hydralazine HCl 25 Mg Tablet, 25 MG PO TIDAC, (Reported) Insulin Glargine,Hum.rec.anlog 100 Unit/1 Ml Insuln.pen, 42 UNIT SQ BID, (Reported) Lisinopril 20 Mg Tablet, 20 MG PO DAILY, (Reported) Metoprolol Succinate 100 Mg Tab.er.24h, 100 MG PO DAILY, (Reported) Multivits,Ca,Min/Iron/FA/Lycop 1 Each Tablet, 1 EACH PO DAILY, (Reported) Pantoprazole Sodium 40 Mg Tablet.dr, 40 MG PO HS, (Reported) Potassium Chloride 10 Meq Tablet.er, 10 MEQ PO BID, (Reported) Sitagliptin Phos/Metformin HCl 1 Each Tbmp.24hr, 1 EACH PO DAILY, (Reported) Past Medical/Social/Family Hx Patient Social History Marrital Status: Employed/Student: retired Tobacco Use?: No Use of E-Cig and/or Vaping dev: No Substance use?: No Alcohol Use?: No Pt stated abuse/neglect: No Immunizations Up To Date Influenza Vaccine Up-to-Date: Yes; Up-to-Date Date of Pneumonia Vaccine: Feb 03, 2017 Current Status Advance Directives: Yes Advance Directive Location: Copy placed in chart Communicates: Verbally Primary Language: [place] Islander Preferred Spoken Language: [place] Islander Is interpretation needed?: No Review of Systems Constitutional: see HPI Focused Exam Height, Weight, BMI Height: 5'11.00" Weight: 212lbs. 9.0oz. 96.006837iq; 27.76 BMI Method:Stated Exam Exam Patient acknowledged, consented, and participated in this virtual visit which was conducted using real time audio/video Vital Signs Date Time Temp Pulse Resp B/P (MAP) Pulse Ox O2 Delivery O2 Flow Rate FiO2 09/07/21 15:09 97 Vapotherm 40.00 100 09/07/21 15:08 Vapotherm 40.00 100 09/07/21 15:00 80 16 132/60 97 Vapotherm 30.00 100.00 09/07/21 14:00 71 15 110/50 93 Vapotherm 30.00 100.00 09/07/21 13:00 71 18 107/50 94 Vapotherm 30.00 100.00 09/07/21 12:52 78 09/07/21 12:00 Vapotherm 40.00 100 09/07/21 12:00 80 11 120/73 94 Vapotherm 30.00 100.00 09/07/21 11:45 83 112/71 Vapotherm 30.00 100.00 Height & Weight Height: 5'11.00" Weight: 212lbs. 9.0oz. 96.240721ma; 27.76 BMI Method:Stated General Appearance: No Apparent Distress, WD/WN HEENT: PERRL/EOMI, TMs Normal, Normal ENT Inspection, Pharynx Normal, Moist Mucous Membranes Neck: Full Range of Motion, Normal Inspection, Non Tender, Supple, Carotid Bruit Respiratory: Chest Non Tender, Normal Breath Sounds, No Accessory Muscle Use, No Respiratory Distress Cardiovascular: Regular Rate, Rhythm, No Edema, No JVD, Normal Peripheral Pulses, Systolic Murmur, Gallop/S3 Extremity: Normal Capillary Refill, Normal Inspection, Normal Range of Motion, Non Tender, No Calf Tenderness, No Pedal Edema Neurologic/Psychiatric: Alert, Oriented x3, No Motor/Sensory Deficits, Normal Mood/Affect Skin: Normal Color, Warm/Dry Lymphatic: No Adenopathy Assessment/Plan Assessment/Plan ` MIKE DELEON MD Sep 07, 2021 15:27
[2021-09-07] MEDS ORDERED: INSU100I10 SQ (15:56)
[2021-09-07] MEDS ORDERED: LISI20TA26 PO (15:56)
--- NOTE | 2021-09-07 16:15 | Diagnostic Imaging Report ---
INDICATION: Hypoxia. COMPARISON: Prior examination from 03/10/2017. FINDINGS: There are marked bilateral perihilar infiltrates likely reflecting failure. There is no pleural effusion or pneumothorax. There is cardiomegaly. The mediastinum is unremarkable. IMPRESSION: 1. Marked perihilar pulmonary infiltrates, likely failure although pneumonia could conceivably have a similar appearance. Recommend clinical correlation. 2. Cardiomegaly. Dictated by: Dictated on workstation # [id number]
[2021-09-07] MEDS: CEFEPIME INJECTION 1,000 MG in NS (IVPB) 50 ML IV SCH ×2 (16:56→22:46)
[2021-09-07] MEDS ORDERED: FUROSEMIDE 40 MG/4 ML INJ (LASIX) IVP SCH (17:00)
[2021-09-08] MEDS: CEFEPIME INJECTION 1,000 MG in NS (IVPB) 50 ML IV SCH ×3 (04:12→20:44)
[2021-09-08 05:05] LABS: HEMATOCRIT 37 % (40-54); MEAN CORPUSCULAR HEMOGLOBIN 26 pg (25-34); MEAN CORPUSCULAR HGB CONC 30 g/dL (32-36); MEAN CORPUSCULAR VOLUME 86 fL (80-99); MEAN PLATELET VOLUME 8.9 fL (9.0-12.2); PLATELET COUNT 488 10^3/uL (130-400); WHITE BLOOD COUNT 12.6 10^3/uL (4.3-11.0)
[2021-09-08 05:15] LABS: POTASSIUM 5.3 MMOL/L (3.6-5.0)
[2021-09-08] MEDS ORDERED: FUROSEMIDE 40 MG/4 ML INJ (LASIX) IVP ONE (05:15)
[2021-09-08 05:16] LABS: CALCIUM 8.8 MG/DL (8.5-10.1)
[2021-09-08 05:20] LABS: CREATININE SERUM 2.02 MG/DL (0.60-1.30)
[2021-09-08] MEDS: hydrALAZINE (APRESOLINE) 25 MG TAB PO SCH ×3 (06:08→23:11)
[2021-09-08 06:47] VITALS: BP 153/82
[2021-09-08] MEDS: NS IV 1000 ML 1,000 ML IV SCH ×2 (07:58→17:45)
[2021-09-08] MEDS: FUROSEMIDE 40 MG/4 ML INJ (LASIX) IVP SCH ×2 (07:58→17:05)
--- NOTE | 2021-09-08 08:36 | Cardiology Progress Note ---
Subjective Date Seen by Provider: Sep 08, 2021 Time Seen by Provider: 08:30 Subjective/Events-last exam Patient was seen at bedside, laying down comfortably Still on Vapotherm and having shortness of breath. Still having mild chest pain Review of Systems General: No Chills, No Night Sweats; Fatigue, Malaise; No Appetite, No Other HEENT: No Head Aches, No Visual Changes, No Eye Pain, No Ear Pain, No Dysphasia, No Sinus Congestion, No Post Nasal Drip, No Sore Throat, No Other Pulmonary: Dyspnea; No Cough, No Pleuritic Chest Pain, No Other Cardiovascular: Chest Pain; No: Palpitations, Orthopnea, Paroxysmal Noc. Dyspnea, Edema, Lt Headedness, Other Objective-Cardiology Exam Last Set of Vital Signs Vital Signs 09/08/21 09/08/21 09/08/21 06:00 06:47 07:56 Temp 36.7 Pulse 107 Resp 29 B/P (MAP) 153/82 Pulse Ox 96 O2 Delivery Vapotherm O2 Flow Rate 30.00 FiO2 65 I&O Intake and Output 09/08/21 00:00 Intake Total 700 ml Output Total 950 ml Balance -250 ml Intake Oral 700 ml Output Urine Total 950 ml Daily Weight Change No General: Alert, Oriented X3, Cooperative HEENT: Atraumatic, PERRLA Neck: Supple, No JVD, No Thyromegaly Lungs: Clear to Auscultation, Normal Air Movement Heart: Regular Rate, Normal S1, Normal S2, Other (Systolic murmur at the left sternal border) Abdomen: Normal Bowel Sounds, Soft, No Tenderness, No Hepatosplenomegaly, No Masses Extremities: No Clubbing, No Cyanosis, No Edema, Normal Pulses, No Tenderness/Swelling Skin: No Rashes, No Breakdown, No Significant Lesion Neuro: Normal Gait, Normal Speech, Strength at 5/5 X4 Ext, Normal Tone, Sensation Intact Psych/Mental Status: Mental Status NL, Mood NL Results Lab Laboratory Tests 09/08/21 04:50 A/P-Cardiology Admission Diagnosis Acute myocardial infarction Coronary artery disease Diabetes mellitus Hypertension Assessment/Plan Acute myocardial infarction with ST elevation occurred on arrival of the ambulance to bring him to [place] requiring emergency cardiac catheterization carried out with stenting of the LAD. Continue on aspirin and Plavix, continue to monitor Acute respiratory failure combination of heart failure and pneumonia. Receiving Rocephin and Lasix I increased Lasix dose to 40 mg twice daily and will monitor tolerance and response Pneumonia, managed by primary care team. Sepsis, elevated lactic acid. Could be secondary to acute myocardial infarction heart failure Congestive heart failure, acute left ventricular systolic dysfunction, ischemic cardiomyopathy Echocardiogram showed diffuse left ventricular hypokinesia with ejection fraction 30 to 35%, biatrial enlargement, pulmonary hypertension with PA pressure 50 to 55 mmHg, heavily calcified mitral valve with mild mitral regurgitation, calcified aortic valve with no significant stenosis Started on diuretics and beta-blockers, cannot tolerate NOVA inhibitor and/or ARB due to renal failure. Coronary artery disease history of stent to the LAD using Promus 2.2512 mm done in July 2015, at that time he had 50 percent right coronary artery stenosis that was treated conservatively. Cardiac catheterization March 10, 2017 revealing 90% stenosis at the mid circumflex artery, 60% stenosis proximally, successful balloon angioplasty then stent deployment to the mid circumflex artery using 2.523 mm Xience Alpine to the mid artery, the proximal portion was improved to 20% residual with balloon angioplasty. Patent stent in the LAD, mild disease in the right coronary artery nonobstructive disease. Cardiac catheterization was done on September 07, 2021 showing severe ostial and proximal LAD successful angioplasty and stenting using wendi point stent 2.75 x 28 expanded to 3 mm with excellent results. Mid LAD has moderate stenosis distal LAD has severe stenosis, there is moderate stenosis in the mid circumflex t coronary artery and mild to moderate stenosis in the mid right coronary artery Malignant hypertension, resistant to multiple medication, continue to monitor blood pressure after starting all his medications Episodes of dizziness, lightheaded at home. We will monitor his blood pressure response to blood pressure medication Renal artery stenosis-angiogram done March 10, 2017 revealed severe right pilar l artery stenosis. Underwent renal angiogram with stenting to the right renal artery using HERCULINK ELITE 7X18 with excellent results minimal residual stenosis in March 17, 2017. Continue to monitor. Intolerance to clonidine secondary to severe dizziness. Peripheral vascular disease- Angiogram done March 10, 2017 revealed moderate disease to SFA. Was unable to visualize arteries below the knee secondary to limiting contrast exposure. Peripheral angiogram on March 24, 2017 revealing severe left iliac artery stenosis, Balloon angioplasty and deployment OMNILINK ELITE 7X39 expanded to 7.3 with excellent results, mild to moderate disease in the left lower extremity down to the trifurcation. Patent stent in the right iliac artery with ofyf-by-riitsuxp disease down to the trifurcation. Had abnormal HALLIE in August 2017. Complaining of increased claudication pain, HALLIE is worse in May. Did complex intervention in July 2019 with severe disease and deployment of 3 stents of the left SFA and popliteal artery using absolute Pro 6 x 60 followed by 6 x 80 and distally 6 x 100 with excellent results. Moderate to severe stenosis at the midright SFA with moderate disease at the trifurcation, patent stent in the right renal artery, mild disease at the left renal artery, heavily calcified abdominal aorta, complication with disruption of the long 6 [place]awk sheath that require significant maneuvering to remove the full catheter. Excellent results. ABIs done in September 2019, denies any increased claudication pain, will continue to monitor. Baseline EKG abnormality with sinus rhythm, first-degree AV block, left ventricular hypertrophy pattern early repolarization Acute on chronic renal insufficiency, history of chronic kidney disease stage III. Deterioration in renal function due to aggressive diuresis. Continue to monitor History of stroke over 20 years ago with mild residual facial droop and occasional slurred speech, no other residual weakness Hyperlipidemia, maintained on Lipitor 10 mg daily and niacin daily, controlled. Continue to monitor. Diabetes mellitus, hold Metformin and I recommend discontinuation of Metformin, followed and managed by primary care physician Arthritis, degenerative disc disease, back pain and lower extremity pain, pos sible referral for orthopedic surgeon History of tobaccoism stopped over 20 years ago. DEYSI GREY MD Sep 08, 2021 08:36
[2021-09-08] MEDS: ASPIRIN E.C. 81 MG (ECOTRIN) TAB PO SCH (08:49)
[2021-09-08] MEDS: CLOPIDOGREL 75 MG (PLAVIX) TABLET PO SCH (08:50)
[2021-09-08] MEDS: meTOprolol SUCCINATE 100 MG (TOPROL XL) TAB PO SCH (08:50)
[2021-09-08] MEDS: lisINopril 20 MG (PRINIVIL) TABLET PO SCH (08:50)
[2021-09-08] MEDS: amLODIPine 10 MG (NORVASC) TAB PO SCH (08:50)
[2021-09-08] MEDS ORDERED: cefTRIAXone 1 GM PRE-MIX 50 ML IV SCH (09:00)
--- NOTE | 2021-09-08 09:03 | Tele-ICU Progress Note ---
Subjective Date Seen by a Provider: Sep 08, 2021 Time Seen by a Provider: 07:00 Subjective/Events-last exam This virtual visit was conducted using real time audio/video. Thank you for asking us to see this patient for respiratory insufficiency due to pna. Also STEMI s/p stenting x 2. PE: VSS. O2 sat 96% on VT 30 LPM, 65%. HEENT: No obvious masses, adenopathy or JVD. Chest: crackles on auscultation. CV: RRR S1 S2 No murmur or added sounds. Abd: Non-tender. Bowel sounds Y. : Unremarkable. Mccord N. THIRD OFFICER/psychiatric: Grossly intact. No obvious focal findings. Extremities: No edema. Capillary refill < 3 seconds. Skin: unremarkable. Results: Elevated WCC 12.6, BUN 30, Creat 2.02, Trop 7.433. Decreased HB 11.0. CXR: B infilts.. Available chart/ vitals / labs / images reviewed. Video assessment done using teleICU camera, rest of exam as per RN. A/P: Respiratory insufficiency: Continue present management with Vapotherm. Wean as quoc. Cont. Duonebs. Monitor for increasing oxygenation needs and/or need for intubation. Critical Care: critically ill patient. Cont. ASA, Plavix, abx, lasix, norv., statin, metop., lisinopril. Discussed with LATANYA Ellis. Asked RN to reach out to eICU if any questions or concerns later. Time spent with patient/coordination of care with other health professionals (mins): 25 Sepsis Event Evaluation Height, Weight, BMI Height: 5'11.00" Weight: 212lbs. 9.0oz. 96.645564vf; 27.76 BMI Method:Stated Exam Exam Patient acknowledged, consented, and participated in this virtual visit which was conducted using real time audio/video Vital Signs Date Time Temp Pulse Resp B/P (MAP) Pulse Ox O2 Delivery O2 Flow Rate FiO2 09/08/21 07:56 36.7 09/08/21 06:47 37.5 107 96 09/08/21 06:47 96 Vapotherm 30.00 65 09/08/21 06:00 114 29 153/82 87 Vapotherm 30.00 65.00 09/08/21 05:00 112 14 182/70 89 Vapotherm 30.00 65.00 09/08/21 04:42 37.5 09/08/21 04:00 95 Vapotherm 30.00 70 09/08/21 04:00 95 14 141/54 93 Vapotherm 30.00 65.00 09/08/21 04:00 93 Vapotherm 30.00 65 09/08/21 03:00 99 19 143/56 97 Vapotherm 30.00 65.00 09/08/21 02:00 105 20 130/114 96 Vapotherm 30.00 65.00 09/08/21 01:00 86 09/08/21 01:00 86 15 122/48 92 Vapotherm 30.00 65.00 09/08/21 00:00 95 Vapotherm 30.00 70 09/08/21 00:00 89 14 117/56 97 Vapotherm 30.00 65.00 09/07/21 23:20 36.4 Vapotherm 30.00 65.00 09/07/21 23:00 87 19 132/57 94 Vapotherm 30.00 70.00 09/07/21 22:42 94 Vapotherm 30.00 70 09/07/21 22:00 82 14 112/52 91 Vapotherm 30.00 70.00 09/07/21 21:00 89 20 118/47 97 Vapotherm 30.00 70.00 09/07/21 20:00 84 18 127/60 91 Vapotherm 30.00 70.00 09/07/21 20:00 95 Vapotherm 30.00 70 09/07/21 20:00 37.0 09/07/21 19:57 Vapotherm 30.00 70.00 09/07/21 19:15 87 Vapotherm 20.00 70.00 09/07/21 19:00 85 19 103/50 90 Vapotherm 20.00 60.00 09/07/21 19:00 87 09/07/21 18:45 Vapotherm 09/07/21 18:00 90 19 109/51 96 Vapotherm 20.00 60.00 09/07/21 17:00 82 33 134/56 94 Vapotherm 20.00 60.00 09/07/21 16:47 Vapotherm 20.00 70.00 09/07/21 16:00 80 12 146/69 100 Vapotherm 30.00 100.00 09/07/21 15:09 97 Vapotherm 40.00 100 09/07/21 15:08 Vapotherm 40.00 100 09/07/21 15:00 80 16 132/60 97 Vapotherm 30.00 100.00 09/07/21 14:00 71 15 110/50 93 Vapotherm 30.00 100.00 09/07/21 13:00 71 18 107/50 94 Vapotherm 30.00 100.00 09/07/21 12:52 78 09/07/21 12:00 Vapotherm 40.00 100 09/07/21 12:00 80 11 120/73 94 Vapotherm 30.00 100.00 09/07/21 11:45 83 112/71 Vapotherm 30.00 100.00 I & O 09/08/21 07:00 Intake Total 1050 ml Output Total 1325 ml Balance -275 ml Height & Weight Height: 5'11.00" Weight: 212lbs. 9.0oz. 96.285499ru; 27.76 BMI Method:Stated General Appearance: No Apparent Distress, WD/WN HEENT: PERRL/EOMI, TMs Normal, Normal ENT Inspection, Pharynx Normal, Moist Mucous Membranes Neck: Full Range of Motion, Normal Inspection, Non Tender, Supple, Carotid Bruit Respiratory: Chest Non Tender, Normal Breath Sounds, No Accessory Muscle Use, No Respiratory Distress Cardiovascular: Regular Rate, Rhythm, No Edema, No JVD, Normal Peripheral Pulses, Systolic Murmur, Gallop/S3 Capillary Refill: Less Than 3 Seconds Extremity: Normal Capillary Refill, Normal Inspection, Normal Range of Motion, Non Tender, No Calf Tenderness, No Pedal Edema Neurologic/Psychiatric: Alert, Oriented x3, No Motor/Sensory Deficits, Normal Mood/Affect Skin: Normal Color, Warm/Dry Lymphatic: No Adenopathy Results Lab Laboratory Tests 09/08/21 04:50 Assessment/Plan Assessment/Plan See free text. Critical Care: Critically Ill Patient MAGUE COHEN MD Sep 08, 2021 09:02
--- NOTE | 2021-09-08 09:13 | History & Physical ---
History of Present Illness History of Present Illness Reason for visit/HPI PT IS A 76 Y/O MALE WHO WAS ADMITTED TO THE HOSPITAL IN TRANSFER FROM [facility]. HE WAS FOUND TO HAVE ST ELEVATION, AND THE TRANSFER WAS FOR ACUTE MYOCARDIAL INFARCTION. PT WAS FOUND TO HAVE PULMONARY EDEMA, AND POSSIBLE PNEUMONIA ON FURTHER EVALUATION. THE PT WAS TAKEN FOR ACUTE RUBBER FLAP [facility] INTERVENTION ON ADMISSION. Date of Admission Sep 07, 2021 at 11:39 Date Seen by a Provider: Sep 08, 2021 Time Seen by a Provider: 09:00 I consulted on this patient on 09/08/21 09:11 Attending Physician Ana Ryan MD Admitting Physician Rosanne Turcios MD Consult EICU Allergies and Home Medications Allergies Coded Allergies: No Known Drug Allergies (Unverified , 07/19/15) Patient Home Medication List Home Medication List Reviewed: Yes Amlodipine Besylate (Amlodipine Besylate) 10 Mg Tablet, 10 MG PO DAILY, (Reported) Entered as Reported by: GELY ROBERTS on 03/10/17 1149 Last Action: Reviewed Aspirin (Aspirin EC) 81 Mg Tablet.dr, 81 MG PO DAILY, (Reported) Entered as Reported by: IVETT PAULINO on 03/17/17 0923 Last Action: Reviewed Atorvastatin Calcium (Atorvastatin Calcium) 10 Mg Tablet, 10 MG PO 1600, (Reported) Entered as Reported by: GELY ROBERTS on 03/10/17 1150 Last Action: Reviewed Clopidogrel Bisulfate (Clopidogrel) 75 Mg Tablet, 75 MG PO 1600, (Reported) Entered as Reported by: GELY ROBERTS on 03/10/17 1147 Last Action: Reviewed Furosemide (Furosemide) 40 Mg Tablet, 40 MG PO DAILY, (Reported) Entered as Reported by: GELY ROBERTS on 03/10/17 1146 Last Action: Reviewed Insulin Glargine,Hum.rec.anlog (Lantus Solostar) 100 Unit/1 Ml Insuln.pen, 45 UNIT SQ BID, (Reported) Entered as Reported by: PATY BEAULIEU on 09/07/21 420 Last Action: New Order Lisinopril (Lisinopril) 20 Mg Tablet, 20 MG PO BID, (Reported) Entered as Reported by: PATY BEAULIEU on 09/07/211555 Last Action: New Order Metoprolol Succinate (Metoprolol Succinate) 100 Mg Tab.er.24h, 100 MG PO DAILY, (Reported) Entered as Reported by: GELY ROBERTS on 03/10/171147 Last Action: Reviewed Multivits,Ca,Min/Iron/FA/Lycop (Centrum Men's Tablet) 1 Each Tablet, 1 EACH PO DAILY, (Reported) Entered as Reported by: EDDIE STEEL on 07/19/19939 Last Action: Reviewed Pantoprazole Sodium (Pantoprazole Sodium) 40 Mg Tablet.dr, 40 MG PO HS, (Reported) Entered as Reported by: GELY ROBERTS on 03/10/171144 Last Action: Reviewed Potassium Chloride (Klor-Con 10) 10 Meq Tablet.er, 10 MEQ PO BID, (Reported) Entered as Reported by: GELY ROBERTS on 03/10/171148 Last Action: Reviewed Discontinued Medications Gabapentin (Gabapentin) 100 Mg Capsule, 100 MG PO HS, (Reported) Discontinued Reason: No Longer Taking Entered as Reported by: IEVTT PAULINO on 03/17/17932 Last Action: Discontinued Hydralazine HCl (Hydralazine HCl) 25 Mg Tablet, 25 MG PO TIDAC, (Reported) Discontinued Reason: No Longer Taking Entered as Reported by: EDDIE STEEL on 07/19/19939 Last Action: Discontinued Insulin Glargine,Hum.rec.anlog (Lantus Solostar) 100 Unit/1 Ml Insuln.pen, 42 UNIT SQ BID, (Reported) Discontinued Reason: No Longer Taking Entered as Reported by: IVETT PAULINO on 03/17/17922 Last Action: Discontinued Lisinopril (Lisinopril) 20 Mg Tablet, 20 MG PO DAILY, (Reported) Discontinued Reason: No Longer Taking Entered as Reported by: GELY ROBERTS on 03/10/171147 Last Action: Discontinued Sitagliptin Phos/Metformin HCl (Janumet Xr 100-1,000 mg Tablet) 1 Each Tbmp.24hr, 1 EACH PO DAILY, (Reported) Discontinued Reason: No Longer Taking Entered as Reported by: EDDIE STEEL on 07/19/19939 Last Action: Discontinued Past Fbjlrzd-Uhkaxn-Vsjxmg Hx Patient Social History Marrital Status: single Living Status: AT [facility] Employed/Student: retired Tobacco Use?: No Use of E-Cig and/or Vaping dev: No Substance use?: No Alcohol Use?: No Pt feels they are or have been: No Immunizations Up To Date Date of Influenza Vaccine: Feb 15, 2019 Date of Pneumonia Vaccine: Feb 03, 2017 Current Status Advance Directives: Yes Advance Directive Location: Copy placed in chart Communicates: Verbally Primary Language: Palestinian Preferred Spoken Language: Palestinian Is interpretation needed?: No Past Medical History Coronary Artery Disease, High Cholesterol, Hypertension, Peripheral Vascular Stroke (WITH SHORT TERM MEMORY LOSS) Degenerate Disk Disease, Arthritis Diabetes, Insulin dep Blood Disorders: No Family Medical History Reviewed Nursing Family Hx Myocardial infarction 19 FATHER 19 MOTHER Review of Systems Constitutional: No chills, No fever, No malaise, No weakness EENTM: No hoarseness, No throat pain Respiratory: No cough; dyspnea on exertion, short of breath Cardiovascular: chest pain, Hx of Intervention, vascular heart diseas Gastrointestinal: No abdominal pain, No constipation, No diarrhea, No loss of appetite, No nausea Genitourinary: no symptoms reported Musculoskeletal: muscle weakness (GENERALIZED) Skin: no symptoms reported Psychiatric/Neurological: Pre-Existing Deficit (COGNITIVE DEFICIT); Denies Weakness All Other Systems Reviewed Negative Unless Noted: Yes Physical Exam Vital Signs Vital Signs - First Documented 09/07/21 09/07/21 09/07/21 11:45 12:00 20:00 Temp 37.0 Pulse 83 Resp 11 B/P (MAP) 112/71 Pulse Ox 94 O2 Delivery Vapotherm O2 Flow Rate 30.00 100.00 FiO2 100 Capillary Refill : Less Than 3 Seconds Height, Weight, BMI Height: 5'11.00" Weight: 212lbs. 9.0oz. 96.304752kg; 27.76 BMI Method:Stated General Appearance: WD/WN, Mild Distress (DUE TO SHORTNESS OF BREATH AND CHEST PAIN) HEENT: PERRL/EOMI, Pharynx Normal Neck: Full Range of Motion, Non Tender, Supple Respiratory: Chest Non Tender, Crackles (IN BASES, DIFFICULT TO AUSCULTATE DUE TO PT MAKING NOISE WITH EXHALE) Cardiovascular: Regular Rate, Rhythm, Normal Peripheral Pulses Gastrointestinal: Normal Bowel Sounds, No Organomegaly, No Pulsatile Mass, Non Tender, Soft Rectal: Deferred Back: Normal Inspection Neurologic/Psychiatric: Alert, Other (ORIENTED TO PERSON, PLACE, FLAT AFFECT) Skin: Normal Color, Warm/Dry Lymphatic: No Adenopathy Assessment/Plan Assessment and Plan CHEST PAIN STEMI DYSPNEA CHRONIC HYPERTENSION ELEVATED TROPONIN PNEUMONIA DIABETES MELLITUS ESOPHAGEAL REFLUX VASCULAR DEMENTIA CHEST PAIN WITH DYSPNEA AND STEMI - MANAGED BY DR. RYAN - SEE HIS PROCEDURE NOTE FROM HEART CATH ON ADMISSION - SMALL VESSEL DISEASE, AND DISEASE OF LAD. - MONITOR SYMPTOMS. - RESTART ANTIHYPERTENSIVES CHRONIC HYPERTENSION - RESTART ANTIHYPERTENSIVE MEDICATIONS. PNEUMONIA - PT ON ROCEPHIN, CONTINUE, MONITOR SERIAL CXR'S DIABETES MELLITUS - FSBS, SLIDING SCALE, CHECK HGBA1C ESOPHAGEAL REFLUX - CONTINUE WITH PPI THERAPY. VASCULAR DEMENTIA - SUPPORTIVE CARE, PT WILL NEED TO CONSIDER GOING TO LONG-TERM FOR SHORT TERM FOR THERAPY ON DISCHARGE. Admission Diagnosis CHEST PAIN STEMI DYSPNEA CHRONIC HYPERTENSION ELEVATED TROPONIN PNEUMONIA DIABETES MELLITUS ESOPHAGEAL REFLUX VASCULAR DEMENTIA Admission Status: Inpatient Order (span 2 midnights) Reason for Inpatient Admission: ADMISSION FOR STEMI, HEART FAILURE, WILL REQUIRE 72+ HOURS IN THE HOSPITAL. ROSANNE TURCIOS MD Sep 08, 2021 09:13
[2021-09-08 10:43] LABS: ABG BASE EXCESS -4.8 MMOL/L (-2.5-2.5); ABG OXYGEN SATURATION 93 % (94-100); ABG PCO2 39 MMHG (35-45); ABG PO2 75 MMHG (79-93); ABG TCO2 21.1 MMOL/L (21.0-31.0)
[2021-09-08 10:45] LABS: ABG PH 7.33 (7.37-7.43); INSPIRED O2 30L/65%; VENTILATOR NO
[2021-09-08 10:46] LABS: PATIENT TEMP 37.5
[2021-09-08] MEDS: LORazepam INJ 2 MG/ML (ATIVAN) VIAL IVP PRN (11:18)
[2021-09-08] MEDS: RT-ALBUTEROL/IPRATROPIUM 3 ML (DUONEB) VIAL INH PRN (14:40)
[2021-09-08] MEDS ORDERED: morphine INJ 10 MG/ML 1ML (SYR OR VIAL) IVP STA ×2 (16:50→18:14)
[2021-09-08] MEDS ORDERED: morphine INJ 4 MG/ML 1 ML (VIAL/SYRINGE) ONE (16:52)
[2021-09-08] MEDS ORDERED: D5W IV SOLUTION (EXCEL) 250 ML IV ONE (16:56)
[2021-09-08] MEDS ORDERED: NITRO DRIP 25000 MCG/D5W 250 ML IV ONE ×2 (16:57→19:26)
[2021-09-08] MEDS ORDERED: FUROSEMIDE 40 MG/4 ML INJ (LASIX) IVP NR (17:00)
[2021-09-08] MEDS: NITRO DRIP 25000 MCG/D5W 250 ML IV SCH (17:01)
[2021-09-08] MEDS ORDERED: morphine INJ 4 MG/ML 1 ML (VIAL/SYRINGE) IVP ONE (17:15)
--- NOTE | 2021-09-08 17:18 | Diagnostic Imaging Report ---
INDICATION: Shortness of breath. COMPARISON: 09/07/2021. FINDINGS: A single view of the chest demonstrates essentially unchanged bilateral pulmonary infiltrates. There is no pneumothorax. Trace pleural effusions are seen. The heart remains enlarged. There is no pneumothorax. IMPRESSION: Unchanged aeration. Dictated by: Dictated on workstation # [id number]
[2021-09-08] MEDS ORDERED: morphine INJ 4 MG/ML 1 ML (VIAL/SYRINGE) IV STA (18:15)
[2021-09-08] MEDS ORDERED: PANTOPRAZOLE 40 MG (PROTONIX) VIAL IV NR (18:15)
[2021-09-08] MEDS ORDERED: HEParin 1000 UNIT/ML (10ML VIAL) FOR BOLUS ONE (19:25)
[2021-09-08] MEDS ORDERED: HEParin (CATH LAB) 2,000 ML IV ONE (19:25)
[2021-09-08] MEDS ORDERED: LIDOCAINE 1% INJ 20 ML VIAL ONE (19:25)
[2021-09-08] MEDS ORDERED: MIDAZOLAM 5 MG/5 ML (VERSED) VIAL ONE (19:25)
[2021-09-08] MEDS ORDERED: fentaNYL INJ 100 MCG/2 ML AMP ONE (19:25)
[2021-09-08] MEDS ORDERED: NS IV 1000 ML 1,000 ML ONE (19:40)
[2021-09-08] MEDS ORDERED: VERAPAMIL 5 MG/2 ML (CALAN) VIAL IV ONE (19:50)
[2021-09-08] MEDS ORDERED: NS IV 1000 ML 1,000 ML IV SCH (20:15)
[2021-09-08] MEDS: ISOSORBIDE MONONITRATE 30 MG (IMDUR) TAB PO SCH ×2 (20:15→23:11)
--- NOTE | 2021-09-08 20:15 | Cardiac Cath Report ---
Cardiac Cath Report Physician (s)/Sexer (s) Physician DEYSI GREY MD Pre-Procedure Diagnosis Pre-Procedure Diagnosis: CAD Post-Procedure Note Procedure Start Date: Sep 08, 2021 Name of Procedure: Coronary angiogram Findings/Procedure Note PROCEDURE NOTE: 76 years old gentleman admitted with acute myocardial infarction on September 07, 2021 underwent stent to the ostium of the LAD with proximal LAD long stent. Was doing better, had 1 episode of nausea and vomiting then started to have some chest pain this morning, progressed in the afternoon became severe chest pain 10/10 in intensity. Given multiple doses of morphine and started on nitroglycerin drip without improvement in the pain. I decided to take him back to the [facility] to reevaluate his coronary anatomy. After explaining the procedure to the patient, all pros and cons were explained, all questions were answered. The patient signed the consent and then he was placed on the cardiac catheterization laboratory. Groin was prepped SL fashion local anesthesia was used. Sheath placed in the right radial artery, [place] cat heter was advanced over baby J-wire and engaged the left main coronary artery, angiogram was done. At the end of the procedure the sheath was removed. Closure device vascular band was used FINDINGS: ANATOMY: Left Main is free of obstructive disease Left Anterior Descending has patent stent in the proximal and ostial LAD, patent stent in the mid LAD and moderate disease distally Left Circumflex is moderate in size with moderate disease at the midportion Right Coronary Artery was not evaluated CONCLUSION: 1. Patent stent in the ostial/proximal LAD, patent stent in the mid LAD with moderate disease in the distal LAD, small vessel disease was noted in the diagonal and septal branches 2. Moderate disease in the mid circumflex artery DISCUSSION AND RECOMMENDATION: Chest pain is out of proportion, severe at this time. Blood pressure is stable, it could be related to pleurisy or esophageal spasm or erosion due to his vomiting. I will start him on Carafate in addition to Protonix and adding Imdur and monitor tolerance and response Anesthesia Type: Conscious Sedation Estimated blood loss (mL): 5 ml Contrast Amount: 21 ml Total Radiation Dose: 213 mGy Post-Procedure Diagnosis Post-operative diagnosis: Chest pain Coronary artery disease Hypertension Hyperlipidemia DEYSI GREY MD Sep 08, 2021 20:15
--- NOTE | 2021-09-08 20:18 | Conscious Sedation/ASA ---
Conscious Sedation Pre-Proced Time 19:00 ASA Score 3 For ASA 3 and 4: Consider anesthesia and medical clearance. Also, for patients with a history of failed moderate sedation consider anesthesia. Airway Lungs Heart ASA score ASA 1: a normal healthy patient ASA 2: a patient with a mild systemic disease (mid diabetes, controlled hypertension, obesity ASA 3: a patient with a severe systemic disease that limits activity (angina, COPD, prior Myocardial infarction) ASA 4: a patient with an incapacitating disease that is a constant threat to life (CHF, renal failure) ASA 5: a moribund patient not expected to survive 24 hrs. (ruptured aneurysm) ASA 6: a declared brain- patient whose organs are being harvested. For emergent operations, add the letter E after the classification Mallampati Classification Grade 3 Sedation Plan Analgesia, Amnesia, Plan communicated to team members, Discussed options with patient/fam, Discussed risks with patient/fam The patient is an appropriate candidate to undergo the planned procedure, sedation, and anesthesia. The patient immediately re-assessed prior to indication. DEYSI GREY MD Sep 08, 2021 20:18
[2021-09-08] MEDS: SUCRALFATE 1 GM (CARAFATE) TAB PO SCH ×2 (21:00→23:10)
[2021-09-08] MEDS: RT-ALBUTEROL/IPRATROPIUM 3 ML (DUONEB) VIAL INH SCH (22:09)
[2021-09-09] MEDS: NITRO DRIP 25000 MCG/D5W 250 ML IV SCH (02:44)
[2021-09-09] MEDS: NITROGLYCERIN 0.4 MG SL TABS BTL 25'S SL PRN ×2 (02:50→03:14)
[2021-09-09] MEDS: LORazepam INJ 2 MG/ML (ATIVAN) VIAL IVP PRN ×2 (04:16→10:25)
[2021-09-09] MEDS: CEFEPIME INJECTION 1,000 MG in NS (IVPB) 50 ML IV SCH ×3 (04:16→20:35)
[2021-09-09] MEDS: NS IV 1000 ML 1,000 ML IV SCH ×2 (04:18→13:45)
[2021-09-09] MEDS: RT-ALBUTEROL/IPRATROPIUM 3 ML (DUONEB) VIAL INH PRN ×2 (04:25→14:49)
[2021-09-09 05:16] LABS: HEMATOCRIT 30 % (40-54); MEAN CORPUSCULAR HEMOGLOBIN 26 pg (25-34); MEAN CORPUSCULAR HGB CONC 30 g/dL (32-36); MEAN CORPUSCULAR VOLUME 85 fL (80-99); MEAN PLATELET VOLUME 9.3 fL (9.0-12.2); PLATELET COUNT 426 10^3/uL (130-400); WHITE BLOOD COUNT 11.7 10^3/uL (4.3-11.0)
[2021-09-09 05:41] LABS: POTASSIUM 5.1 MMOL/L (3.6-5.0)
[2021-09-09 05:42] LABS: CALCIUM 8.3 MG/DL (8.5-10.1)
[2021-09-09 05:47] LABS: CREATININE SERUM 2.38 MG/DL (0.60-1.30)
[2021-09-09 05:49] LABS: MAGNESIUM 2.2 MG/DL (1.6-2.4)
[2021-09-09] MEDS: hydrALAZINE (APRESOLINE) 25 MG TAB PO SCH ×3 (06:04→20:35)
[2021-09-09] MEDS: FUROSEMIDE 40 MG/4 ML INJ (LASIX) IVP SCH ×2 (06:04→19:52)
[2021-09-09] MEDS: SUCRALFATE 1 GM (CARAFATE) TAB PO SCH ×4 (06:04→20:35)
--- NOTE | 2021-09-09 07:38 | Diagnostic Imaging Report ---
EXAMINATION: Chest 1 view HISTORY: Pulmonary edema COMPARISON: 09/08/2021 FINDINGS: Heart size and pulmonary vasculature are stable. Stable diffuse interstitial opacities seen throughout the perihilar and lower lungs. No significant pleural effusion or pneumothorax. The osseous structures are intact. IMPRESSION: 1. Stable diffuse perihilar and basilar interstitial opacities. Dictated by: Dictated on workstation # [id number]
[2021-09-09] MEDS: DOBUTamine DRIP 250 ML IV SCH ×2 (08:01→22:46)
--- NOTE | 2021-09-09 08:05 | Cardiology Progress Note ---
Subjective Date Seen by Provider: Sep 09, 2021 Time Seen by Provider: 08:03 Subjective/Events-last exam Patient was seen at bedside, feeling better today, no chest pain Still having significant dyspnea maintained on Vapotherm Review of Systems General: No Chills, No Night Sweats; Fatigue; No Malaise, No Appetite, No Other HEENT: No Head Aches, No Visual Changes, No Eye Pain, No Ear Pain, No Dysphasia, No Sinus Congestion, No Post Nasal Drip, No Sore Throat, No Other Pulmonary: Dyspnea; No Cough, No Pleuritic Chest Pain, No Other Cardiovascular: Edema; No: Chest Pain, Palpitations, Orthopnea, Paroxysmal Noc. Dyspnea, Lt Headedness, Other Objective-Cardiology Exam Last Set of Vital Signs Vital Signs 09/09/21 09/09/21 09/09/21 00:19 06:00 07:53 Temp 36.7 Pulse 97 Resp 28 B/P (MAP) 129/48 Pulse Ox 95 O2 Delivery Vapotherm O2 Flow Rate 25.00 FiO2 60 I&O Intake and Output 09/09/21 00:00 Intake Total 1470 ml Output Total 1575 ml Balance -105 ml Intake Oral 1420 ml IV Total 50 ml Output Urine Total 1575 ml # Voids 1 General: Alert, Oriented X3, Cooperative HEENT: Atraumatic, PERRLA Neck: Supple, No JVD, No Thyromegaly Lungs: Clear to Auscultation, Normal Air Movement Heart: Regular Rate, Normal S1, Normal S2, Other (Systolic murmur at the left sternal border) Abdomen: Normal Bowel Sounds, Soft, No Tenderness, No Hepatosplenomegaly, No Masses Extremities: No Clubbing, No Cyanosis, Normal Pulses, No Tenderness/Swelling, Other (Trace edema) Skin: No Rashes, No Breakdown, No Significant Lesion Neuro: Normal Gait, Normal Speech, Strength at 5/5 X4 Ext, Normal Tone, Sensation Intact Psych/Mental Status: Mental Status NL, Mood NL Results Lab Laboratory Tests 09/09/21 04:42 A/P-Cardiology Admission Diagnosis Acute myocardial infarction Coronary artery disease Diabetes mellitus Hypertension Assessment/Plan Acute myocardial infarction with ST elevation occurred on arrival of the ambulance to bring him to [place] requiring emergency cardiac catheterization carried out on September 07, 2021 with stenting of the LAD. Repeat cardiac catheterization was done on September 08, 2021 due to severe persistent chest pain resistant to nitroglycerin, patent stents with moderate disease, small vessel disease. Continue on aspirin and Plavix, continue to monitor Acute respiratory failure combination of heart failure and pneumonia. Receiving Rocephin and Lasix I increased Lasix dose to 40 mg twice daily and will monitor tolerance and response Pneumonia, managed by primary care team. Sepsis, elevated lactic acid. Could be secondary to acute myocardial infarction heart failure Congestive heart failure, acute left ventricular systolic dysfunction, ischemic cardiomyopathy Echocardiogram showed diffuse left ventricular hypokinesia with ejection fraction 30 to 35%, biatrial enlargement, pulmonary hypertension with PA pressure 50 to 55 mmHg, heavily calcified mitral valve with mild mitral regurgitation, calcified aortic valve with no significant stenosis Started on diuretics and beta-blockers, cannot tolerate NOVA inhibitor and/or ARB due to renal failure. I am starting low-dose dobutamine due to pulmonary edema and heart failure and I will evaluate his tolerance and response Coronary artery disease history of stent to the LAD using Promus 2.2512 mm done in July 2015, at that time he had 50 percent right coronary artery stenosis that was treated conservatively. Cardiac catheterization March 10, 2017 revealing 90% stenosis at the mid circumflex artery, 60% stenosis proximally, successful balloon angioplasty then stent deployment to the mid circumflex artery using 2.523 mm Xience Alpine to the mid artery, the proximal portion was improved to 20% residual with balloon angioplasty. Patent stent in the LAD, mild disease in the right coronary artery nonobstructive disease. Cardiac catheterization was done on September 07, 2021 showing severe ostial and proximal LAD successful angioplasty and stenting using wendi point stent 2.75 x 28 expanded to 3 mm with excellent results. Mid LAD has moderate stenosis distal LAD has severe stenosis, there is moderate stenosis in the mid circumflex t coronary artery and mild to moderate stenosis in the mid right coronary artery Repeat cardiac catheterization was done on September 08, 2021 due to severe chest pain showing patent stent with mild to moderate disease and small vessel disease. Nonobstructive disease Malignant hypertension, resistant to multiple medication, continue to monitor blood pressure after starting all his medications Episodes of dizziness, lightheaded at home. We will monitor his blood pressure response to blood pressure medication Renal artery stenosis-angiogram done March 10, 2017 revealed severe right renal artery stenosis. Underwent renal angiogram with stenting to the right renal artery using [employer] ELITE [id number] with excellent results minimal residual stenosis in March 17, 2017. Continue to monitor. Intolerance to clonidine secondary to severe dizziness. Peripheral vascular disease- Angiogram done March 10, 2017 revealed moderate disease to SFA. Was unable to visualize arteries below the knee secondary to limiting contrast exposure. Peripheral angiogram on March 24, 2017 revealing severe left iliac artery stenosis, Balloon angioplasty and deployment OMNILINK ELITE [id number] expanded to 7.3 with excellent results, mild to moderate disease in the left lower extremity down to the trifurcation. Patent stent in the right iliac artery with [id number] disease down to the trifurcation. Had abnormal HALLIE in August 2017. Complaining of increased claudication pain, HALLIE is worse in May. Did complex intervention in July 2019 with severe disease and deployment of 3 stents of the left SFA and popliteal artery using absolute Pro 6 x 60 followed by 6 x 80 and distally 6 x 100 with excellent results. Moderate to severe stenosis at the midright SFA with moderate disease at the trifurcation, patent stent in the right renal artery, mild disease at the left renal artery, heavily calcified abdominal aorta, complication with disruption of the long 6 [place] sheath that require significant maneuvering to remove the full catheter. Excellent results. ABIs done in September 2019, denies any increased claudication pain, will continue to monitor. Baseline EKG abnormality with sinus rhythm, first-degree AV block, left ventricular hypertrophy pattern early repolarization Acute on chronic renal insufficiency, history of chronic kidney disease stage III. Deterioration in renal function due to aggressive diuresis. Continue to monitor History of stroke over 20 years ago with mild residual facial droop and occasional slurred speech, no other residual weakness Hyperlipidemia, maintained on Lipitor 10 mg daily and niacin daily, controlled. Continue to monitor. Diabetes mellitus, hold Metformin and I recommend discontinuation of Metformin, followed and managed by primary care physician Arthritis, degenerative disc disease, back pain and lower extremity pain, possible referral for orthopedic surgeon History of tobaccoism stopped over 20 years ago. DEYSI GREY MD Sep 09, 2021 08:05
[2021-09-09] MEDS: lisINopril 20 MG (PRINIVIL) TABLET PO SCH (09:15)
[2021-09-09] MEDS: ASPIRIN E.C. 81 MG (ECOTRIN) TAB PO SCH (09:17)
[2021-09-09] MEDS: meTOprolol SUCCINATE 100 MG (TOPROL XL) TAB PO SCH (09:17)
[2021-09-09] MEDS: ISOSORBIDE MONONITRATE 30 MG (IMDUR) TAB PO SCH (09:17)
[2021-09-09] MEDS: CLOPIDOGREL 75 MG (PLAVIX) TABLET PO SCH (09:17)
--- NOTE | 2021-09-09 09:21 | Progress Note ---
Subjective Subjective Date Seen by Provider: Sep 09, 2021 Time Seen by Provider: 08:30 PT REPORTS THAT HE IS STILL FEELING SHORT OF BREATH, HIS CHEST PAIN HAS IMPROVED. HE DENIES ABDOMINAL PAIN, NAUSEA. REPORTS THAT HE HAS BOWEL MOVEMENTS EVERY FEW DAYS AT HOME. HE IS UNSURE WHAT HIS SUGARS HAVE BEEN RUNNING [place] [facility] [place] Review of Systems General: No Chills, No Night Sweats; Fatigue; No Malaise, No Appetite, No Other HEENT: No Head Aches, No Visual Changes, No Eye Pain, No Ear Pain, No Dysph renato, No Sinus Congestion, No Post Nasal Drip, No Sore Throat, No Other Pulmonary: Dyspnea; No Cough, No Pleuritic Chest Pain, No Other Cardiovascular: Chest Pain (MILD), Edema; No: Palpitations, Orthopnea, Parox ysmal Noc. Dyspnea, Lt Headedness, Other Neurological: Weakness, Confusion (CHRONIC) All Other Systems Reviewed All Other Systems Reviewed: Yes Objective Exam Vital Signs Vital Signs Date Time Temp Pulse Resp B/P (MAP) Pulse Ox O2 Delivery O2 Flow Rate FiO2 09/09/21 09:05 105 133/37 09/09/21 08:01 92 117/44 09/09/21 08:00 91 18 129/37 95 Vapotherm 25.00 60.00 09/09/21 08:00 37.1 09/09/21 07:53 95 Vapotherm 25.00 60 09/09/21 07:00 93 18 131/59 96 Vapotherm 25.00 60.00 09/09/21 06:00 97 28 129/48 95 Vapotherm 25.00 60.00 09/09/21 05:00 96 21 139/40 93 Vapotherm 25.00 60.00 09/09/21 04:25 94 Vapotherm 25.00 60 09/09/21 04:00 96 Vapotherm 25.00 60 09/09/21 04:00 93 20 122/41 96 Vapotherm 25.00 60.00 09/09/21 03:07 94 Vapotherm 25.00 60 09/09/21 03:00 104 21 121/46 95 Vapotherm 25.00 60.00 09/09/21 02:44 108 112/72 09/09/21 02:00 87 18 127/42 93 Vapotherm 25.00 60.00 09/09/21 01:00 86 09/09/21 01:00 86 16 128/47 96 Vapotherm 25.00 60.00 09/09/21 00:30 92 24 123/38 92 Vapotherm 25.00 60.00 09/09/21 00:19 36.7 09/09/21 00:00 82 15 137/45 96 Vapotherm 30.00 70.00 09/08/21 23:59 93 Vapotherm 40.00 65 09/08/21 23:00 82 14 142/58 96 Vapotherm 30.00 70.00 09/08/21 22:45 83 16 136/80 96 Vapotherm 30.00 70.00 09/08/21 22:30 93 22 168/66 85 Vapotherm 30.00 70.00 09/08/21 22:15 85 19 135/87 92 Vapotherm 30.00 70.00 09/08/21 22:09 96 Vapotherm 30.00 70 09/08/21 22:00 79 16 168/40 95 Vapotherm 30.00 70.00 09/08/21 21:45 78 14 146/68 94 Vapotherm 30.00 70.00 09/08/21 21:30 81 16 163/51 93 Vapotherm 30.00 70.00 09/08/21 21:15 73 15 145/40 93 Vapotherm 30.00 70.00 09/08/21 21:00 73 30 146/38 93 Vapotherm 30.00 70.00 09/08/21 20:45 78 14 148/43 94 Vapotherm 30.00 70.00 09/08/21 20:30 84 16 159/48 92 Vapotherm 30.00 70.00 09/08/21 20:15 89 155/111 Vapotherm 30.00 70.00 09/08/21 20:00 93 Vapotherm 40.00 65 09/08/21 19:30 81 15 148/54 94 Vapotherm 40.00 65.00 09/08/21 19:15 83 15 136/53 94 Vapotherm 40.00 65.00 09/08/21 19:00 88 09/08/21 19:00 84 16 136/53 94 Vapotherm 40.00 65.00 09/08/21 18:42 94 Vapotherm 40.00 65 09/08/21 18:30 84 16 136/53 94 High Flow N/C 8.00 09/08/21 18:15 87 20 128/57 95 High Flow N/C 8.00 09/08/21 18:00 93 25 130/68 93 High Flow N/C 8.00 09/08/21 17:45 85 18 121/58 94 High Flow N/C 8.00 09/08/21 17:30 85 16 139/56 95 High Flow N/C 8.00 09/08/21 17:15 89 19 143/57 97 High Flow N/C 8.00 09/08/21 17:01 91 119/60 09/08/21 17:00 67 17 126/75 93 High Flow N/C 8.00 09/08/21 16:00 69 17 122/75 95 High Flow N/C 8.00 09/08/21 15:00 91 25 119/60 95 High Flow N/C 8.00 09/08/21 14:41 96 Vapotherm 40.00 65 09/08/21 14:00 98 15 120/42 93 High Flow N/C 8.00 09/08/21 13:00 112 09/08/21 13:00 112 27 103/59 91 High Flow N/C 8.00 09/08/21 12:00 36.4 09/08/21 12:00 93 Vapotherm 40.00 65 09/08/21 12:00 93 25 121/48 91 High Flow N/C 8.00 09/08/21 11:00 93 28 108/47 93 High Flow N/C 8.00 09/08/21 10:19 94 High Flow N/C 8.00 09/08/21 10:00 105 25 143/48 96 High Flow N/C 8.00 09/08/21 09:45 94 High Flow N/C 8.00 I & O 09/09/21 07:00 Intake Total 1420 ml Output Total 1375 ml Balance 45 ml General Appearance: No Apparent Distress, WD/WN Eyes: Bilateral Eye Normal Inspection, Bilateral Eye PERRL, Bilateral Eye EOMI HEENT: PERRL/EOMI, Pharynx Normal Neck: Full Range of Motion, Non Tender, Supple Respiratory: Chest Non Tender, Crackles (IN BASES, DIFFICULT TO AUSCULTATE DUE TO PT MAKING NOISE WITH EXHALE) Cardiovascular: Regular Rate, Rhythm, Normal Peripheral Pulses Gastrointestinal: Normal Bowel Sounds, No Organomegaly, No Pulsatile Mass, Non Tender, Soft Rectal: Deferred Back: Normal Inspection Extremity: Normal Capillary Refill, Normal Inspection, Normal Range of Motion, Non Tender, No Calf Tenderness, No Pedal Edema Neurologic/Psychiatric: Alert, Other (ORIENTED TO PERSON, PLACE, FLAT AFFECT) Skin: Normal Color, Warm/Dry Lymphatic: No Adenopathy Results Lab Laboratory Tests 09/08/21 10:10: Blood Gas Puncture Site RT RAD, Blood Gas Patient Temperature 37.5, Arterial Blood pH 7.33*L, Arterial Blood Partial Pressure CO2 39, Arterial Blood Partial Pressure O2 75L, Arterial Blood HCO3 20L, Arterial Blood Total CO2 21.1, Arterial Blood Oxygen Saturation 93L, Arterial Blood Base Excess -4.8L, Cruz Test NA, Blood Gas Ventilator Setting NO, Blood Gas Inspired Oxygen 30L/65% 09/08/21 17:10: Troponin I 6.379*H 09/09/21 04:42: Troponin I 5.534*H, White Blood Count 11.7H, Red Blood Count 3.50L, Hemoglobin 9.0L, Hematocrit 30L, Mean Corpuscular Volume 85, Mean Corpuscular Hemoglobin 26, Mean Corpuscular Hemoglobin Concent 30L, Red Cell Distribution Width 13.7, Platelet Count 426H, Mean Platelet Volume 9.3, Sodium Level 132L, Potassium Level 5.1H, Chloride Level 104, Carbon Dioxide Level 14L, Anion Gap 14, Blood Urea Nitrogen 38H, Creatinine 2.38H, Estimat Glomerular Filtration Rate 27, BUN/Creatinine Ratio 16, Glucose Level 166H, Calcium Level 8.3L, Magnesium Level 2.2 Assessment/Plan Assessment/Plan Admission Dx CHEST PAIN STEMI DYSPNEA CHRONIC HYPERTENSION ELEVATED TROPONIN PNEUMONIA DIABETES MELLITUS ESOPHAGEAL REFLUX VASCULAR DEMENTIA Assessment and Plan CHEST PAIN STEMI DYSPNEA CHRONIC HYPERTENSION ELEVATED TROPONIN PNEUMONIA DIABETES MELLITUS ESOPHAGEAL REFLUX VASCULAR DEMENTIA CHEST PAIN WITH DYSPNEA AND STEMI - MANAGED BY DR. GREY - SEE HIS PROCEDURE NOTE FROM HEART CATH ON ADMISSION - SMALL VESSEL DISEASE, AND DISEASE OF LAD. - MONITOR SYMPTOMS. - RESTARTED ANTIHYPERTENSIVES CHRONIC HYPERTENSION - RESTARTED ANTIHYPERTENSIVE MEDICATIONS. PNEUMONIA - PT ON ROCEPHIN, CONTINUE, MONITOR SERIAL CXR'S DIABETES MELLITUS - FSBS, SLIDING SCALE, CHECK HGBA1C ESOPHAGEAL REFLUX - CONTINUE WITH PPI THERAPY. VASCULAR DEMENTIA - SUPPORTIVE CARE, PT WILL NEED TO CONSIDER GOING TO SKILLED NURSING FOR SHORT TERM FOR THERAPY ON DISCHARGE. Admission Dx CHEST PAIN STEMI DYSPNEA CHRONIC HYPERTENSION ELEVATED TROPONIN PNEUMONIA DIABETES MELLITUS ESOPHAGEAL REFLUX VASCULAR DEMENTIA Clinical Quality Measures Admission Status Admission Dx CHEST PAIN STEMI DYSPNEA CHRONIC HYPERTENSION ELEVATED TROPONIN PNEUMONIA DIABETES MELLITUS ESOPHAGEAL REFLUX VASCULAR DEMENTIA ROSANNE PAN MD Sep 09, 2021 09:20
[2021-09-09] MEDS: RT-ALBUTEROL/IPRATROPIUM 3 ML (DUONEB) VIAL INH SCH ×3 (10:38→21:24)
--- NOTE | 2021-09-09 11:05 | Tele-ICU Progress Note ---
Subjective Date Seen by a Provider: Sep 09, 2021 Time Seen by a Provider: 11:04 Subjective/Events-last exam (Tele-ICU Physician , Progress Note ) Available chart/ vitals / labs / Images reviewed Video assessment done using teleICU camera, rest of exam as per RN Discussed with RN , EXAM PER RN Events overnight : dobutamine Afebrile FiO2 - VT I/O = even Drips: Pressors: , hemodynamically stable Consultants: osiel Hospital course: 09/07 to [facility] with SOB - dx with nstemia and PNA 08/29- s/p cath with PCI to LAD , on VT 40 L 100% 09/09 - VT 25L 60% A/P STEMI -09/07 with known CAD - s/p cath 09/07 with PCI to LAD - as per cards -ECHO 09/07 EF 35% -low-dose dobutamine due to pulmonary edema and heart failure Elev lactate ( 28 with normal 20 as per [facility] essay range - ? due to hypoxia - patient was hypertensive 200/132 on admission - doubt severe sepsis Acute hypoxic resp failure - PNA vs CHF vs ? PE - on cefepime -low-dose dobutamine due to pulmonary edema and heart failure - cont on Vapotherm now Suspected PNA - NEG for covid , mucoplasma and flu in Siva - follow on abx now , order cxr and pct Pulm HTN - RVSP 55 mmHg -- follow DM II - ISS , follow ISAI/CKD - cr elev to 1.8 with baseline 1.5 - moinitor with risong Cr to 2.3 with diuretics Anemia - no sighns of bleeding - follow closely Lines : peripg (Central Line Necessity Reviewed) Mccord: void OG: Nutrition: po Analgesia: Anxiety/ delirium VTE Prophylaxis: with decreasing HB will place SCD nad reassess for lovenox tomorrow Stress Ulcer Prophylaxis: po Plans in collaboration with bedside consultants and IM MDs. Discussed with RN to reach out if any questions or concerns A total of 33 minutes of critical care time was devoted to this patient today, required to treat and/or prevent further deterioration of critical care condition ( as above ) . Sepsis Event Evaluation Height, Weight, BMI Height: 5'11.00" Weight: 212lbs. 9.0oz. 96.973076mj; 27.76 BMI Method:Stated Exam Exam Patient acknowledged, consented, and participated in this virtual visit which was conducted using real time audio/video Vital Signs Date Time Temp Pulse Resp B/P (MAP) Pulse Ox O2 Delivery O2 Flow Rate FiO2 09/09/21 10:38 95 Vapotherm 40.00 60 09/09/21 10:25 25 92 Vapotherm 40.00 60.00 09/09/21 09:05 105 133/37 09/09/21 08:01 92 117/44 09/09/21 08:00 91 18 129/37 95 Vapotherm 25.00 60.00 09/09/21 08:00 37.1 09/09/21 07:53 95 Vapotherm 25.00 60 09/09/21 07:00 93 18 131/59 96 Vapotherm 25.00 60.00 09/09/21 06:00 97 28 129/48 95 Vapotherm 25.00 60.00 09/09/21 05:00 96 21 139/40 93 Vapotherm 25.00 60.00 09/09/21 04:25 94 Vapotherm 25.00 60 09/09/21 04:00 96 Vapotherm 25.00 60 09/09/21 04:00 93 20 122/41 96 Vapotherm 25.00 60.00 09/09/21 03:07 94 Vapotherm 25.00 60 09/09/21 03:00 104 21 121/46 95 Vapotherm 25.00 60.00 09/09/21 02:44 108 112/72 09/09/21 02:00 87 18 127/42 93 Vapotherm 25.00 60.00 09/09/21 01:00 86 09/09/21 01:00 86 16 128/47 96 Vapotherm 25.00 60.00 09/09/21 00:30 92 24 123/38 92 Vapotherm 25.00 60.00 09/09/21 00:19 36.7 09/09/21 00:00 82 15 137/45 96 Vapotherm 30.00 70.00 09/08/21 23:59 93 Vapotherm 40.00 65 09/08/21 23:00 82 14 142/58 96 Vapotherm 30.00 70.00 09/08/21 22:45 83 16 136/80 96 Vapotherm 30.00 70.00 09/08/21 22:30 93 22 168/66 85 Vapotherm 30.00 70.00 09/08/21 22:15 85 19 135/87 92 Vapotherm 30.00 70.00 09/08/21 22:09 96 Vapotherm 30.00 70 09/08/21 22:00 79 16 168/40 95 Vapotherm 30.00 70.00 09/08/21 21:45 78 14 146/68 94 Vapotherm 30.00 70.00 09/08/21 21:30 81 16 163/51 93 Vapotherm 30.00 70.00 09/08/21 21:15 73 15 145/40 93 Vapotherm 30.00 70.00 09/08/21 21:00 73 30 146/38 93 Vapotherm 30.00 70.00 09/08/21 20:45 78 14 148/43 94 Vapotherm 30.00 70.00 09/08/21 20:30 84 16 159/48 92 Vapotherm 30.00 70.00 09/08/21 20:15 89 155/111 Vapotherm 30.00 70.00 09/08/21 20:00 93 Vapotherm 40.00 65 09/08/21 19:30 81 15 148/54 94 Vapotherm 40.00 65.00 09/08/21 19:15 83 15 136/53 94 Vapotherm 40.00 65.00 09/08/21 19:00 88 09/08/21 19:00 84 16 136/53 94 Vapotherm 40.00 65.00 09/08/21 18:42 94 Vapotherm 40.00 65 09/08/21 18:30 84 16 136/53 94 High Flow N/C 8.00 09/08/21 18:15 87 20 128/57 95 High Flow N/C 8.00 09/08/21 18:00 93 25 130/68 93 High Flow N/C 8.00 09/08/21 17:45 85 18 121/58 94 High Flow N/C 8.00 09/08/21 17:30 85 16 139/56 95 High Flow N/C 8.00 09/08/21 17:15 89 19 143/57 97 High Flow N/C 8.00 09/08/21 17:01 91 119/60 09/08/21 17:00 67 17 126/75 93 High Flow N/C 8.00 09/08/21 16:00 69 17 122/75 95 High Flow N/C 8.00 09/08/21 15:00 91 25 119/60 95 High Flow N/C 8.00 09/08/21 14:41 96 Vapotherm 40.00 65 09/08/21 14:00 98 15 120/42 93 High Flow N/C 8.00 09/08/21 13:00 112 09/08/21 13:00 112 27 103/59 91 High Flow N/C 8.00 09/08/21 12:00 36.4 09/08/21 12:00 93 Vapotherm 40.00 65 09/08/21 12:00 93 25 121/48 91 High Flow N/C 8.00 I & O 09/09/21 07:00 Intake Total 1420 ml Output Total 1375 ml Balance 45 ml Height & Weight Height: 5'11.00" Weight: 212lbs. 9.0oz. 96.147523ph; 27.76 BMI Method:Stated General Appearance: WD/WN, Mild Distress (DUE TO SHORTNESS OF BREATH AND CHEST PAIN) HEENT: PERRL/EOMI, Pharynx Normal Neck: Full Range of Motion, Non Tender, Supple Respiratory: Chest Non Tender, Crackles (IN BASES, DIFFICULT TO AUSCULTATE DUE TO PT MAKING NOISE WITH EXHALE) Cardiovascular: Regular Rate, Rhythm, Normal Peripheral Pulses Capillary Refill: Less Than 3 Seconds Extremity: Normal Capillary Refill, Normal Inspection, Normal Range of Motion, Non Tender, No Calf Tenderness, No Pedal Edema Neurologic/Psychiatric: Alert, Other (ORIENTED TO PERSON, PLACE, FLAT AFFECT) Skin: Normal Color, Warm/Dry Lymphatic: No Adenopathy Results Lab Laboratory Tests 09/08/21 04:50 09/09/21 04:42 Assessment/Plan Assessment/Plan ` MIKE DELEON MD Sep 09, 2021 11:05
[2021-09-09] MEDS: amLODIPine 10 MG (NORVASC) TAB PO SCH (14:00)
[2021-09-09] MEDS: DexMEDEtomidine 250 ML DRIP 250 ML IV SCH (14:30)
[2021-09-09] MEDS ORDERED: LORazepam INJ 2 MG/ML (ATIVAN) VIAL IVP NR (15:00)
[2021-09-09 15:16] VITALS: BP 112/49
[2021-09-09 15:17] LABS: ABG BASE EXCESS -10.2 MMOL/L (-2.5-2.5); ABG OXYGEN SATURATION 89 % (94-100); ABG PCO2 35 MMHG (35-45); ABG PO2 64 MMHG (79-93); ABG TCO2 16.5 MMOL/L (21.0-31.0)
[2021-09-09 15:24] LABS: ALLENS TEST POSITIVE
[2021-09-09 15:25] LABS: ABG PH 7.26 (7.37-7.43); INSPIRED O2 100%; VENTILATOR NO
[2021-09-09 15:26] LABS: PATIENT TEMP 37
[2021-09-09 18:39] VITALS: BP 131/58
[2021-09-09 21:24] VITALS: BP 123/53
[2021-09-10] VITALS (8 sets, daily range): BP systolic 124–142; BP diastolic 53–62
[2021-09-10] MEDS: LORazepam INJ 2 MG/ML (ATIVAN) VIAL IVP PRN (01:49)
[2021-09-10] MEDS: NS IV 1000 ML 1,000 ML IV SCH ×3 (01:50→17:35)
[2021-09-10] MEDS: RT-ALBUTEROL/IPRATROPIUM 3 ML (DUONEB) VIAL INH SCH ×6 (02:47→21:47)
[2021-09-10] MEDS: CEFEPIME INJECTION 1,000 MG in NS (IVPB) 50 ML IV SCH ×2 (03:42→16:42)
[2021-09-10] MEDS: DexMEDEtomidine 250 ML DRIP 250 ML IV SCH (04:41)
[2021-09-10 05:36] LABS: BASOPHILS % (AUTO) 0 % (0-10); EOSINOPHILS # (AUTO) 0.1 10^3/uL (0.0-0.3); EOSINOPHILS % (AUTO) 1 % (0-10); HEMATOCRIT 26 % (40-54); LYMPHOCYTES # (AUTO) 0.5 10^3/uL (1.0-4.0); LYMPHOCYTES % (AUTO) 4 % (12-44); MEAN CORPUSCULAR HEMOGLOBIN 26 pg (25-34); MEAN CORPUSCULAR HGB CONC 31 g/dL (32-36); MEAN CORPUSCULAR VOLUME 83 fL (80-99); MEAN PLATELET VOLUME 9.4 fL (9.0-12.2); MONOCYTES # (AUTO) 1.4 10^3/uL (0.0-1.0); MONOCYTES % (AUTO) 12 % (0-12); NEUTROPHILS # (AUTO) 9.9 10^3/uL (1.8-7.8); NEUTROPHILS % (AUTO) 83 % (42-75); PLATELET COUNT 405 10^3/uL (130-400); WHITE BLOOD COUNT 11.9 10^3/uL (4.3-11.0)
[2021-09-10 05:48] LABS: ALBUMIN 3.1 GM/DL (3.2-4.5); POTASSIUM 4.7 MMOL/L (3.6-5.0)
[2021-09-10 05:50] LABS: CALCIUM 8.4 MG/DL (8.5-10.1)
[2021-09-10 05:53] LABS: BILIRUBIN,TOTAL 0.6 MG/DL (0.1-1.0)
[2021-09-10 05:54] LABS: CREATININE SERUM 2.82 MG/DL (0.60-1.30)
[2021-09-10] MEDS: SUCRALFATE 1 GM (CARAFATE) TAB PO SCH ×4 (05:54→21:23)
[2021-09-10] MEDS: hydrALAZINE (APRESOLINE) 25 MG TAB PO SCH ×3 (05:54→22:00)
[2021-09-10 05:57] LABS: MAGNESIUM 2.3 MG/DL (1.6-2.4)
[2021-09-10] MEDS: FUROSEMIDE 40 MG/4 ML INJ (LASIX) IVP SCH (06:18)
--- NOTE | 2021-09-10 08:34 | Progress Note ---
Subjective Subjective Date Seen by Provider: Sep 10, 2021 Time Seen by Provider: 08:34 PT REPORTS FEELING FATIGUED, WEAK, PT REPEATING THIS PILLOW AGENT'S WORDS DOES NOT SEEM TO COMPREHEND VERY MUCH OF WHAT THIS PILLOW AGENT IS STATING THIS MORNING. Review of Systems General: No Chills, No Night Sweats; Fatigue; No Malaise, No Appetite, No Other HEENT: No Head Aches, No Visual Changes, No Eye Pain, No Ear Pain, No Dysphasia, No Sinus Congestion, No Post Nasal Drip, No Sore Throat, No Other Pulmonary: Dyspnea; No Cough, No Pleuritic Chest Pain, No Other Cardiovascular: Chest Pain (MILD), Edema; No: Palpitations, Orthopnea, Paroxysmal Noc. Dyspnea, Lt Headedness, Other Neurological: Weakness, Confusion (CHRONIC) All Other Systems Reviewed All Other Systems Reviewed: Yes Objective Exam Vital Signs Vital Signs Date Time Temp Pulse Resp B/P (MAP) Pulse Ox O2 Delivery O2 Flow Rate FiO2 09/10/21 08:00 99 Vapotherm 40.00 09/10/21 08:00 36.2 09/10/21 06:38 95 20 96 40.00 09/10/21 06:00 91 20 134/56 96 NIV Bilevel 40.00 09/10/21 05:45 92 20 135/56 96 09/10/21 05:30 93 20 134/54 96 09/10/21 05:15 95 24 135/58 96 09/10/21 05:00 96 19 137/56 96 NIV Bilevel 40.00 09/10/21 04:45 96 19 136/56 97 09/10/21 04:41 98 137/57 09/10/21 04:30 98 19 137/57 96 09/10/21 04:15 97 19 137/57 96 09/10/21 04:00 97 NIV Bilevel 45 09/10/21 04:00 98 19 138/57 97 NIV Bilevel 40.00 09/10/21 03:45 100 21 139/58 98 09/10/21 03:30 99 19 131/56 96 09/10/21 03:15 98 21 131/56 96 09/10/21 03:00 96 19 127/56 96 NIV Bilevel 40.00 09/10/21 02:48 95 23 96 40.00 09/10/21 02:45 96 24 124/54 96 09/10/21 02:30 96 19 126/51 100 09/10/21 02:15 96 19 126/55 96 09/10/21 02:00 95 19 117/47 93 NIV Bilevel 40.00 09/10/21 01:45 105 22 121/58 93 09/10/21 01:30 103 25 137/59 93 09/10/21 01:15 98 18 122/48 97 09/10/21 01:00 104 09/10/21 01:00 103 19 120/48 98 NIV Bilevel 40.00 09/10/21 00:45 101 25 119/53 94 09/10/21 00:30 101 16 116/52 96 09/10/21 00:15 101 24 120/54 95 09/10/21 00:00 101 18 123/52 96 NIV Bilevel 40.00 09/09/21 23:59 97 NIV Bilevel 45 09/09/21 23:45 102 17 118/51 95 09/09/21 23:40 36.6 09/09/21 23:30 102 21 128/53 79 09/09/21 23:15 103 24 121/56 93 09/09/21 23:00 101 18 117/51 96 NIV Bilevel 40.00 09/09/21 22:46 100 123/53 09/09/21 22:45 99 16 122/52 95 09/09/21 22:30 105 18 119/59 94 09/09/21 22:15 103 17 114/56 97 09/09/21 22:00 106 18 115/52 96 NIV Bilevel 40.00 09/09/21 21:45 106 17 121/56 96 09/09/21 21:38 NIV Bilevel 40.00 09/09/21 21:30 101 17 117/52 95 09/09/21 21:24 100 22 96 40.00 09/09/21 21:15 101 18 123/53 96 09/09/21 21:00 100 19 114/57 96 NIV Bilevel 45.00 09/09/21 20:45 104 18 122/53 96 09/09/21 20:30 102 16 114/51 94 09/09/21 20:15 102 17 120/48 91 09/09/21 20:00 103 18 120/52 96 NIV Bilevel 45.00 09/09/21 20:00 97 NIV Bilevel 45 09/09/21 20:00 36.9 09/09/21 20:00 NIV Bilevel 45.00 09/09/21 19:45 101 17 108/51 95 09/09/21 19:30 102 17 111/48 95 09/09/21 19:15 104 19 109/52 94 09/09/21 19:00 102 09/09/21 19:00 102 18 122/51 94 NIV Bilevel 45.00 09/09/21 18:39 98 26 94 45.00 09/09/21 18:00 96 28 113/53 97 NIV Bilevel 70.00 09/09/21 17:00 107 36 114/57 97 NIV Bilevel 70.00 09/09/21 16:00 99 23 122/60 96 NIV Bilevel 70.00 09/09/21 16:00 37.2 09/09/21 16:00 95 NIV Bilevel 45 09/09/21 15:16 111 37 96 70.00 09/09/21 15:15 116 27 112/49 96 NIV Bilevel 70.00 09/09/21 15:00 128 35 123/61 88 Vapotherm 40.00 60.00 09/09/21 14:50 90 Vapotherm 40.00 100 09/09/21 14:30 130 133/63 09/09/21 14:00 109 44 133/63 90 Vapotherm 40.00 60.00 09/09/21 13:00 102 19 123/19 93 Vapotherm 40.00 60.00 09/09/21 12:35 103 09/09/21 12:00 98 17 119/52 94 Vapotherm 40.00 60.00 09/09/21 12:00 94 Vapotherm 40.00 60 09/09/21 11:00 107 21 107/39 93 Vapotherm 40.00 60.00 09/09/21 10:38 95 Vapotherm 40.00 60 09/09/21 10:25 25 92 Vapotherm 40.00 60.00 09/09/21 10:00 111 19 123/51 97 Vapotherm 25.00 60.00 09/09/21 09:05 105 133/37 09/09/21 09:00 103 18 135/57 97 Vapotherm 25.00 60.00 I & O 09/10/21 07:00 Intake Total 450 ml Output Total 1255 ml Balance -805 ml General Appearance: Mild Distress Eyes: Bilateral Eye Normal Inspection, Bilateral Eye PERRL, Bilateral Eye EOMI HEENT: Pharynx Normal Neck: Full Range of Motion, Non Tender, Supple Respiratory: Chest Non Tender, Crackles (IN BASES, DIFFICULT TO AUSCULTATE DUE TO PT MAKING NOISE WITH EXHALE) Cardiovascular: Regular Rate, Rhythm, Normal Peripheral Pulses Gastrointestinal: Normal Bowel Sounds, No Organomegaly, No Pulsatile Mass, Non Tender, Soft Rectal: Deferred Back: Normal Inspection Extremity: Normal Capillary Refill, Normal Inspection, Normal Range of Motion, Non Tender, No Calf Tenderness, No Pedal Edema Neurologic/Psychiatric: Alert, Other (ORIENTED TO PERSON, PLACE, FLAT AFFECT) Skin: Normal Color, Warm/Dry Lymphatic: No Adenopathy Results Lab Laboratory Tests 09/09/21 15:10: Blood Gas Puncture Site LEFT RADIAL, Blood Gas Patient Temperature 37, Arterial Blood pH 7.26*L, Arterial Blood Partial Pressure CO2 35, Arterial Blood Partial Pressure O2 64L, Arterial Blood HCO3 15*L, Arterial Blood Total CO2 16.5L, Arterial Blood Oxygen Saturation 89L, Arterial Blood Base Excess -10.2L, Cruz Test POSITIVE, Blood Gas Ventilator Setting NO, Blood Gas Inspired Oxygen 100% 09/10/21 05:17: White Blood Count 11.9H, Red Blood Count 3.08L, Hemoglobin 8.0L, Hematocrit 26L, Mean Corpuscular Volume 83, Mean Corpuscular Hemoglobin 26, Mean Corpuscular Hemoglobin Concent 31L, Red Cell Distribution Width 13.8, Platelet Count 405H, Mean Platelet Volume 9.4, Immature Granulocyte % (Auto) 0, Neutrophils (%) (Auto) 83H, Lymphocytes (%) (Auto) 4L, Monocytes (%) (Auto) 12, Eosinophils (%) (Auto) 1, Basophils (%) (Auto) 0, Neutrophils # (Auto) 9.9H, Lymphocytes # (Auto) 0.5L, Monocytes # (Auto) 1.4H, Eosinophils # (Auto) 0.1, Basophils # (Auto) 0.0, Immature Granulocyte # (Auto) 0.1, Sodium Level 134L, Potassium Level 4.7, Chloride Level 103, Carbon Dioxide Level 15L, Anion Gap 16H, Blood Urea Nitrogen 48H, Creatinine 2.82#H, Estimat Glomerular Filtration Rate 22, BUN/Creatinine Ratio 17, Glucose Level 256H, Calcium Level 8.4L, Corrected Calcium 9.1, Magnesium Level 2.3, Total Bilirubin 0.6, Aspartate Amino Transf (AST/SGOT) 19, Alanine Aminotransferase (ALT/SGPT) 13, Alkaline Phosphatase 52, Total Protein 6.0L, Albumin 3.1L Assessment/Plan Assessment/Plan Admission Dx CHEST PAIN STEMI DYSPNEA CHRONIC HYPERTENSION ELEVATED TROPONIN PNEUMONIA DIABETES MELLITUS ESOPHAGEAL REFLUX VASCULAR DEMENTIA Assessment and Plan CHEST PAIN STEMI DYSPNEA CHRONIC HYPERTENSION ELEVATED TROPONIN PNEUMONIA DIABETES MELLITUS ESOPHAGEAL REFLUX RENAL FAILURE ANEMIA VASCULAR DEMENTIA CHEST PAIN WITH DYSPNEA AND STEMI - MANAGED BY DR. GREY - SEE HIS PROCEDURE NOTE FROM HEART CATH ON ADMISSION - SMALL VESSEL DISEASE, AND DISEASE OF LAD. - MONITOR SYMPTOMS. - RESTARTED ANTIHYPERTENSIVES CHRONIC HYPERTENSION - RESTARTED ANTIHYPERTENSIVE MEDICATIONS. RENAL FAILURE - WORSENING - DISCUSSED WITH CARDIOLOGY - WILL DECREASE LASIX DOSE ANEMIA - GIVE 1 UNIT OF BLOOD TODAY, REPEAT CBC IN MORNING. PNEUMONIA - PT ON ROCEPHIN, CONTINUE, MONITOR SERIAL CXR'S DIABETES MELLITUS - FSBS, SLIDING SCALE, CHECK HGBA1C ESOPHAGEAL REFLUX - CONTINUE WITH PPI THERAPY. VASCULAR DEMENTIA - SUPPORTIVE CARE, PT WILL NEED TO CONSIDER GOING TO [facility] FOR SHORT TERM FOR THERAPY ON DISCHARGE. Admission Dx CHEST PAIN STEMI DYSPNEA CHRONIC HYPERTENSION ELEVATED TROPONIN PNEUMONIA DIABETES MELLITUS ESOPHAGEAL REFLUX VASCULAR DEMENTIA Clinical Quality Measures Admission Status Admission Dx CHEST PAIN STEMI DYSPNEA CHRONIC HYPERTENSION ELEVATED TROPONIN PNEUMONIA DIABETES MELLITUS ESOPHAGEAL REFLUX VASCULAR DEMENTIA ROSANNE PAN MD Sep 10, 2021 08:34
[2021-09-10] MEDS ORDERED: FUROSEMIDE 40 MG/4 ML INJ (LASIX) IVP ONE (09:30)
[2021-09-10] MEDS ORDERED: BISACODYL 10 MG SUPP (DULCOLAX) PR ONE (09:30)
[2021-09-10] MEDS ORDERED: diphenhydrAMINE 50 MG/ML INJ (BENADRYL) IVP PRN (09:30)
[2021-09-10] MEDS ORDERED: NS IV 500 ML 500 ML IV SCH ×2 (09:30)
[2021-09-10] MEDS ORDERED: BISACODYL 10 MG SUPP (DULCOLAX) PR PRN (09:30)
--- NOTE | 2021-09-10 10:12 | Cardiology Progress Note ---
Subjective Date Seen by Provider: Sep 10, 2021 Time Seen by Provider: 10:10 Subjective/Events-last exam Patient was seen at bedside, still having shortness of breath. Denied any chest pain Maintained on Vapotherm, required BiPAP last night Review of Systems General: No Chills, No Night Sweats; Fatigue, Malaise; No Appetite, No Other HEENT: No Head Aches, No Visual Changes, No Eye Pain, No Ear Pain, No Dysphasia, No Sinus Congestion, No Post Nasal Drip, No Sore Throat, No Other Pulmonary: Dyspnea; No Cough, No Pleuritic Chest Pain, No Other Cardiovascular: No: Chest Pain, Palpitations, Orthopnea, Paroxysmal Noc. Dyspn ea, Edema, Lt Headedness, Other Objective-Cardiology Exam Last Set of Vital Signs Vital Signs 09/10/21 09/10/21 09/10/21 09/10/21 09/10/21 04:00 06:00 06:38 07:00 08:00 Temp 36.2 Pulse 94 Resp 20 B/P (MAP) 134/56 Pulse Ox 99 O2 Delivery Vapotherm O2 Flow Rate 40.00 FiO2 45 I&O Intake and Output 09/10/21 00:00 Intake Total 650 ml Output Total 1100 ml Balance -450 ml Intake Oral 600 ml IV Total 50 ml Output Urine Total 1100 ml # Voids 1 General: Alert, Oriented X3, Cooperative HEENT: Atraumatic, PERRLA Neck: Supple, No JVD, No Thyromegaly Lungs: Normal Air Movement, Other (Bilateral rhonchi) Heart: Regular Rate, Normal S1, Normal S2, Other (Systolic murmur at the left sternal border) Abdomen: Normal Bowel Sounds, Soft, No Tenderness, No Hepatosplenomegaly, No Masses Extremities: No Clubbing, No Cyanosis, Normal Pulses, No Tenderness/Swelling, Other (Trace edema) Skin: No Rashes, No Breakdown, No Significant Lesion Neuro: Normal Gait, Normal Speech, Strength at 5/5 X4 Ext, Normal Tone, Sensation Intact Psych/Mental Status: Mental Status NL, Mood NL Results Lab Laboratory Tests 09/10/21 05:17 A/P-Cardiology Admission Diagnosis Acute myocardial infarction Coronary artery disease Diabetes mellitus Hypertension Assessment/Plan Acute myocardial infarction with ST elevation occurred on arrival of the ambulance to bring him to [place] requiring emergency cardiac catheterization carried out on September 07, 2021 with stenting of the LAD. Repeat cardiac catheterization was done on September 08, 2021 due to severe persistent chest pain resistant to nitroglycerin, patent stents with moderate disease, small vessel disease. Continue on aspirin and Plavix, continue to monitor Acute respiratory failure combination of heart failure and pneumonia. Lasix was decreased due to renal failure. Continue to monitor Acute on chronic renal failure, probably secondary to aggressive diuresis. Has underlying stage III kidney disease Continue to monitor Anemia, deterioration in H&H, probably GI blood loss, I will evaluate stool for occult blood, transfuse and monitor Pneumonia, managed by primary care team. Sepsis, elevated lactic acid. Could be secondary to acute myocardial infarction heart failure Congestive heart failure, acute left ventricular systolic dysfunction, ischemic cardiomyopathy Echocardiogram showed diffuse left ventricular hypokinesia with ejection fraction 30 to 35%, biatrial enlargement, pulmonary hypertension with PA pressure 50 to 55 mmHg, heavily calcified mitral valve with mild mitral regurgitation, calcified aortic valve with no significant stenosis Started on diuretics and beta-blockers, cannot tolerate NOVA inhibitor and/or ARB due to renal failure. Increase dobutamine dose to 5 mcg/kg/min and evaluate tolerance and response Coronary artery disease history of stent to the LAD using Promus 2.2512 mm done in July 2015, at that time he had 50 percent right coronary artery stenosis that was treated conservatively. Cardiac catheterization March 10, 2017 revealing 90% stenosis at the mid circumflex artery, 60% stenosis proximally, successful balloon angioplasty then stent deployment to the mid circumflex artery using 2.523 mm Xience Alpine to the mid artery, the proximal portion was improved to 20% residual with balloon angioplasty. Patent stent in the LAD, mild disease in the right coronary artery nonobstructive disease. Cardiac catheterization was done on September 07, 2021 showing severe ostial and proximal LAD successful angioplasty and stenting using wendi point stent 2.75 x 28 expanded to 3 mm with excellent results. Mid LAD has moderate stenosis distal LAD has severe stenosis, there is moderate stenosis in the mid circumflex t coronary artery and mild to moderate stenosis in the mid right coronary artery Repeat cardiac catheterization was done on September 08, 2021 due to severe chest pain showing patent stent with mild to moderate disease and small vessel disease. Nonobstructive disease Malignant hypertension, resistant to multiple medication, continue to monitor blood pressure after starting all his medications Episodes of dizziness, lightheaded at home. We will monitor his blood pressure response to blood pressure medication Renal artery stenosis-angiogram done March 10, 2017 revealed severe right renal artery stenosis. Underwent renal angiogram with stenting to the right renal artery using HERCULINK ELITE 7X18 with excellent results minimal residual stenosis in March 17, 2017. Continue to monitor. Intolerance to clonidine secondary to severe dizziness. Peripheral vascular disease- Angiogram done March 10, 2017 revealed moderate disease to SFA. Was unable to visualize arteries below the knee secondary to limiting contrast exposure. Peripheral angiogram on March 24, 2017 revealing severe left iliac artery stenosis, Balloon angioplasty and deployment OMNILINK ELITE 7X39 expanded to 7.3 with excellent results, mild to moderate disease in the left lower extremity down to the trifurcation. Patent stent in the right iliac artery with [id number] disease down to the trifurcation. Had abnormal HALLIE in August 2017. Complaining of increased claudication pain, HALLIE is worse in May. Did complex intervention in July 2019 with severe disease and deployment of 3 stents of the left SFA and popliteal artery using absolute Pro 6 x 60 followed by 6 x 80 and distally 6 x 100 with excellent results. Moderate to severe stenosis at the midright SFA with moderate disease at the trifurcation, patent stent in the right renal artery, mild disease at the left renal artery, heavily calcified abdominal aorta, complication with disruption of the long 6 [place] sheath that require significant maneuvering to remove the full catheter. Ex cellent results. ABIs done in September 2019, denies any increased claudication pain, will continue to monitor. Baseline EKG abnormality with sinus rhythm, first-degree AV block, left ventricular hypertrophy pattern early repolarization Acute on chronic renal insufficiency, history of chronic kidney disease stage III. Deterioration in renal function due to aggressive diuresis. Continue to monitor History of stroke over 20 years ago with mild residual facial droop and occasional slurred speech, no other residual weakness Hyperlipidemia, maintained on Lipitor 10 mg daily and niacin daily, controlled. Continue to monitor. Diabetes mellitus, hold Metformin and I recommend discontinuation of Metformin, followed and managed by primary care physician Arthritis, degenerative disc disease, back pain and lower extremity pain, possible referral for orthopedic surgeon History of tobaccoism stopped over 20 years ago. DEYSI GREY MD Sep 10, 2021 10:12
--- NOTE | 2021-09-10 11:10 | Tele-ICU Progress Note ---
Subjective Date Seen by a Provider: Sep 10, 2021 Time Seen by a Provider: 11:10 Subjective/Events-last exam (Tele-ICU Physician , Progress Note ) Available chart/ vitals / labs / Images reviewed Video assessment done using teleICU camera, rest of exam as per RN Discussed with RN , EXAM PER RN Events overnight : dobutamine Afebrile FiO2 - VT 40 L I/O = neg 400 Drips: dobs Pressors: , hemodynamically stable Consultants: osiel Hospital course: 09/07 to [place] with SOB - dx with nstemia and PNA 08/29- s/p cath with PCI to LAD , on VT 40 L 100% 09/09 - VT 25L 60% , DOBUTAMIE gtt for ISAI/CHF, 09/10 - worsenign ISAI - cr 2.8 VT 40 L A/P STEMI -09/07 with known CAD - s/p cath 09/07 with PCI to LAD - as per [facility] -ECHO 09/07 EF 35% -low-dose dobutamine due to pulmonary edema and heart failure Acute hypoxic resp failure - PNA vs CHF (vs ? PE - low susp based on cxr - on cefepime -low-dose dobutamine due to pulmonary edema and heart failure - cont on Vapotherm now - take off precedex and chack ABG Suspected PNA - NEGATIVE for covid , mycoplasma , flu in [place] - follow on abx now , PCT 0.8 ISAI/CKD - cr elev to 1.8 with baseline 1.5 - moinitor with risong Cr to 2.3 - 2.8 with diuretics Pulm HTN - RVSP 55 mmHg -- follow , will benefit from diuresis DM II - ISS , follow Anemia - no sighns of bleeding - follow closely , trending down - add PPI - not on proph for DVT -for transfusion pRBC 09/10 Anxiety - precedex - 09/09--> 09/10 Lines : perip (Central Line Necessity Reviewed) Mccord: toño 09/09 OG: Nutrition: po Analgesia: Anxiety/ delirium VTE Prophylaxis: with decreasing HB will place SCD nad reassess for lovenox tomorrow Stress Ulcer Prophylaxis: po Plans in collaboration with bedside consultants and IM MDs. Discussed with RN to reach out if any questions or concerns A total of 33 minutes of critical care time was devoted to this patient today, required to treat and/or prevent further deterioration of critical care condition ( as above ) . Sepsis Event Evaluation Height, Weight, BMI Height: 5'11.00" Weight: 212lbs. 9.0oz. 96.769578gv; 27.76 BMI Method:Stated Exam Exam Patient acknowledged, consented, and participated in this virtual visit which was conducted using real time audio/video Vital Signs Date Time Temp Pulse Resp B/P (MAP) Pulse Ox O2 Delivery O2 Flow Rate FiO2 09/10/21 10:18 94 Vapotherm 30.00 60 09/10/21 08:00 99 Vapotherm 40.00 09/10/21 08:00 36.2 09/10/21 07:00 94 09/10/21 06:38 95 20 96 40.00 09/10/21 06:00 91 20 134/56 96 NIV Bilevel 40.00 09/10/21 05:45 92 20 135/56 96 09/10/21 05:30 93 20 134/54 96 09/10/21 05:15 95 24 135/58 96 09/10/21 05:00 96 19 137/56 96 NIV Bilevel 40.00 09/10/21 04:45 96 19 136/56 97 09/10/21 04:41 98 137/57 09/10/21 04:30 98 19 137/57 96 09/10/21 04:15 97 19 137/57 96 09/10/21 04:00 97 NIV Bilevel 45 09/10/21 04:00 98 19 138/57 97 NIV Bilevel 40.00 09/10/21 03:45 100 21 139/58 98 09/10/21 03:30 99 19 131/56 96 09/10/21 03:15 98 21 131/56 96 09/10/21 03:00 96 19 127/56 96 NIV Bilevel 40.00 09/10/21 02:48 95 23 96 40.00 09/10/21 02:45 96 24 124/54 96 09/10/21 02:30 96 19 126/51 100 09/10/21 02:15 96 19 126/55 96 09/10/21 02:00 95 19 117/47 93 NIV Bilevel 40.00 09/10/21 01:45 105 22 121/58 93 09/10/21 01:30 103 25 137/59 93 09/10/21 01:15 98 18 122/48 97 09/10/21 01:00 104 09/10/21 01:00 103 19 120/48 98 NIV Bilevel 40.00 09/10/21 00:45 101 25 119/53 94 09/10/21 00:30 101 16 116/52 96 09/10/21 00:15 101 24 120/54 95 09/10/21 00:00 101 18 123/52 96 NIV Bilevel 40.00 09/09/21 23:59 97 NIV Bilevel 45 09/09/21 23:45 102 17 118/51 95 09/09/21 23:40 36.6 09/09/21 23:30 102 21 128/53 79 09/09/21 23:15 103 24 121/56 93 09/09/21 23:00 101 18 117/51 96 NIV Bilevel 40.00 09/09/21 22:46 100 123/53 09/09/21 22:45 99 16 122/52 95 09/09/21 22:30 105 18 119/59 94 09/09/21 22:15 103 17 114/56 97 09/09/21 22:00 106 18 115/52 96 NIV Bilevel 40.00 09/09/21 21:45 106 17 121/56 96 09/09/21 21:38 NIV Bilevel 40.00 09/09/21 21:30 101 17 117/52 95 09/09/21 21:24 100 22 96 40.00 09/09/21 21:15 101 18 123/53 96 09/09/21 21:00 100 19 114/57 96 NIV Bilevel 45.00 09/09/21 20:45 104 18 122/53 96 09/09/21 20:30 102 16 114/51 94 09/09/21 20:15 102 17 120/48 91 09/09/21 20:00 103 18 120/52 96 NIV Bilevel 45.00 09/09/21 20:00 97 NIV Bilevel 45 09/09/21 20:00 36.9 09/09/21 20:00 NIV Bilevel 45.00 09/09/21 19:45 101 17 108/51 95 09/09/21 19:30 102 17 111/48 95 09/09/21 19:15 104 19 109/52 94 09/09/21 19:00 102 4/12/22 19:00 102 18 122/51 94 NIV Bilevel 45.00 09/09/21 18:39 98 26 94 45.00 09/09/21 18:00 96 28 113/53 97 NIV Bilevel 70.00 09/09/21 17:00 107 36 114/57 97 NIV Bilevel 70.00 09/09/21 16:00 99 23 122/60 96 NIV Bilevel 70.00 09/09/21 16:00 37.2 09/09/21 16:00 95 NIV Bilevel 45 09/09/21 15:16 111 37 96 70.00 09/09/21 15:15 116 27 112/49 96 NIV Bilevel 70.00 09/09/21 15:00 128 35 123/61 88 Vapotherm 40.00 60.00 09/09/21 14:50 90 Vapotherm 40.00 100 09/09/21 14:30 130 133/63 09/09/21 14:00 109 44 133/63 90 Vapotherm 40.00 60.00 09/09/21 13:00 102 19 123/19 93 Vapotherm 40.00 60.00 09/09/21 12:35 103 09/09/21 12:00 98 17 119/52 94 Vapotherm 40.00 60.00 09/09/21 12:00 94 Vapotherm 40.00 60 I & O 09/10/21 07:00 Intake Total 450 ml Output Total 1255 ml Balance -805 ml Height & Weight Height: 5'11.00" Weight: 212lbs. 9.0oz. 96.223179zq; 27.76 BMI Method:Stated General Appearance: No Apparent Distress, WD/WN HEENT: PERRL/EOMI, Pharynx Normal Neck: Full Range of Motion, Non Tender, Supple Respiratory: Chest Non Tender, Crackles (IN BASES, DIFFICULT TO AUSCULTATE DUE TO PT MAKING NOISE WITH EXHALE) Cardiovascular: Regular Rate, Rhythm, Normal Peripheral Pulses Capillary Refill: Less Than 3 Seconds Extremity: Normal Capillary Refill, Normal Inspection, Normal Range of Motion, Non Tender, No Calf Tenderness, No Pedal Edema Neurologic/Psychiatric: Alert, Other (ORIENTED TO PERSON, PLACE, FLAT AFFECT) Skin: Normal Color, Warm/Dry Lymphatic: No Adenopathy Results Lab Laboratory Tests 09/09/21 04:42 09/10/21 05:17 Assessment/Plan Assessment/Plan ` MIKE DELEON MD Sep 10, 2021 11:10
[2021-09-10] MEDS: amLODIPine 10 MG (NORVASC) TAB PO SCH (11:56)
[2021-09-10] MEDS: ISOSORBIDE MONONITRATE 30 MG (IMDUR) TAB PO SCH (11:56)
[2021-09-10] MEDS: ASPIRIN E.C. 81 MG (ECOTRIN) TAB PO SCH (11:56)
[2021-09-10] MEDS: CLOPIDOGREL 75 MG (PLAVIX) TABLET PO SCH (11:56)
[2021-09-10] MEDS: DOBUTamine DRIP 250 ML IV SCH (12:12)
[2021-09-10] MEDS: ACETAMINOPHEN 325 MG TABLET PO PRN (16:41)
[2021-09-10] MEDS: NITRO DRIP 25000 MCG/D5W 250 ML IV SCH (16:44)
[2021-09-10] MEDS ORDERED: ACETAMINOPHEN 325 MG TABLET PO NR (19:00)
[2021-09-10] MEDS ORDERED: ACETAMINOPHEN 325 MG TABLET PO ONE (19:00)
[2021-09-10 19:01] LABS: ABG BASE EXCESS -7.2 MMOL/L (-2.5-2.5); ABG OXYGEN SATURATION 93 % (94-100); ABG PCO2 37 MMHG (35-45); ABG PO2 71 MMHG (79-93); ABG TCO2 18.9 MMOL/L (21.0-31.0)
[2021-09-10 19:05] LABS: ALLENS TEST YES-POS; INSPIRED O2 40%; PATIENT TEMP 37.6; VENTILATOR NO
[2021-09-11 03:02] VITALS: BP 129/52
[2021-09-11] MEDS: RT-ALBUTEROL/IPRATROPIUM 3 ML (DUONEB) VIAL INH SCH ×6 (03:02→22:40)
[2021-09-11] MEDS: CEFEPIME INJECTION 1,000 MG in NS (IVPB) 50 ML IV SCH ×2 (04:18→16:48)
[2021-09-11] MEDS: NS IV 1000 ML 1,000 ML IV SCH ×3 (05:00→22:05)
[2021-09-11 05:01] LABS: BASOPHILS % (AUTO) 0 % (0-10); EOSINOPHILS # (AUTO) 0.3 10^3/uL (0.0-0.3); EOSINOPHILS % (AUTO) 3 % (0-10); HEMATOCRIT 27 % (40-54); HEMOGLOBIN 8.6 g/dL (13.3-17.7); LYMPHOCYTES # (AUTO) 0.5 10^3/uL (1.0-4.0); LYMPHOCYTES % (AUTO) 5 % (12-44); MEAN CORPUSCULAR HEMOGLOBIN 27 pg (25-34); MEAN CORPUSCULAR HGB CONC 32 g/dL (32-36); MEAN CORPUSCULAR VOLUME 84 fL (80-99); MEAN PLATELET VOLUME 9.2 fL (9.0-12.2); MONOCYTES # (AUTO) 1.4 10^3/uL (0.0-1.0); MONOCYTES % (AUTO) 14 % (0-12); NEUTROPHILS # (AUTO) 7.9 10^3/uL (1.8-7.8); NEUTROPHILS % (AUTO) 78 % (42-75); PLATELET COUNT 394 10^3/uL (130-400); WHITE BLOOD COUNT 10.1 10^3/uL (4.3-11.0)
[2021-09-11 05:29] LABS: ALBUMIN 3.1 GM/DL (3.2-4.5); POTASSIUM 4.5 MMOL/L (3.6-5.0)
[2021-09-11 05:30] LABS: CALCIUM 8.4 MG/DL (8.5-10.1)
[2021-09-11 05:33] LABS: BILIRUBIN,TOTAL 0.6 MG/DL (0.1-1.0)
[2021-09-11 05:35] LABS: CREATININE SERUM 2.75 MG/DL (0.60-1.30)
[2021-09-11 05:38] LABS: MAGNESIUM 2.1 MG/DL (1.6-2.4)
[2021-09-11 05:48] LABS: ANISOCYTOSIS SLIGHT; BAND NEUTROPHILS 0 %; BASOPHILS % (MANUAL) 1 %; ELLIPT/OVALOCYTES SLIGHT; EOSINOPHILS % (MANUAL) 3 %; HYPOCHROMASIA SLIGHT; LYMPHOCYTES % (MANUAL) 4 %; MONOCYTES % (MANUAL) 12 %; NEUTROPHILS % (MANUAL) 80 %; POIKILOCYTOSIS SLIGHT
[2021-09-11] MEDS: hydrALAZINE (APRESOLINE) 25 MG TAB PO SCH ×3 (06:28→22:04)
[2021-09-11] MEDS: SUCRALFATE 1 GM (CARAFATE) TAB PO SCH ×4 (06:29→20:58)
[2021-09-11 06:52] VITALS: BP 130/55
--- NOTE | 2021-09-11 07:42 | Diagnostic Imaging Report ---
CLINICAL INDICATION: Patient with fluid overload. Follow-up exam. EXAM: Portable chest x-ray upright view. COMPARISON: Chest x-ray dated 09/09/2021. FINDINGS: Stable cardiomegaly. There is mild pulmonary vascular congestion which has improved in interim. There is moderate patchy airspace opacities involving the right midlung field left lung base and small amount of patchy airspace opacities involving the left midlung field left upper lobe. There is overall improved aeration of both lungs. Small bilateral pleural effusions are again noted. There is no pneumothorax. The remainder of this exam shows no significant interval change compared to the prior study of comparison. IMPRESSION: 1: There is cardiomegaly with mild pulmonary vascular congestion which has improved in the interim. 2: There are bilateral lung airspace opacities/infiltrates which have decreased in the interim. Dictated by: Dictated on workstation # [id number]
--- NOTE | 2021-09-11 08:09 | Cardiology Progress Note ---
Subjective Date Seen by Provider: Sep 11, 2021 Time Seen by Provider: 08:07 Subjective/Events-last exam Patient is laying down in bed, maintained on BiPAP Still having shortness of breath and lethargic Review of Systems General: No Chills, No Night Sweats; Fatigue, Malaise; No Appetite, No Other HEENT: No Head Aches, No Visual Changes, No Eye Pain, No Ear Pain, No D ysphasia, No Sinus Congestion, No Post Nasal Drip, No Sore Throat, No Other Pulmonary: Dyspnea; No Cough, No Pleuritic Chest Pain, No Other Cardiovascular: No: Chest Pain, Palpitations, Orthopnea, Paroxysmal Noc. Dyspnea, Edema, Lt Headedness, Other Objective-Cardiology Exam Last Set of Vital Signs Vital Signs 09/11/21 09/11/21 09/11/21 09/11/21 04:00 06:00 06:52 07:52 Temp 37.3 Pulse 102 Resp 22 B/P (MAP) 128/57 Pulse Ox 100 O2 Delivery NIV Bilevel O2 Flow Rate 40.00 FiO2 60 I&O Intake and Output 09/11/21 00:00 Intake Total 1720 ml Output Total 1180 ml Balance 540 ml Intake Oral 1300 ml IV Total 150 ml Other 270 ml Output Urine Total 1180 ml General: Alert, Oriented X3, Cooperative HEENT: Atraumatic, PERRLA Neck: Supple, No JVD, No Thyromegaly Lungs: Normal Air Movement, Other (Bilateral rhonchi) Heart: Regular Rate, Normal S1, Normal S2, Other (Systolic murmur at the left sternal border) Abdomen: Normal Bowel Sounds, Soft, No Tenderness, No Hepatosplenomegaly, No Masses Extremities: No Clubbing, No Cyanosis, Normal Pulses, No Tenderness/Swelling, Other (Trace edema) Skin: No Rashes, No Breakdown, No Significant Lesion Neuro: Normal Gait, Normal Speech, Strength at 5/5 X4 Ext, Normal Tone, Sensation Intact Psych/Mental Status: Mental Status NL, Mood NL Results Lab Laboratory Tests 09/10/21 17:05 09/11/21 04:55 A/P-Cardiology Admission Diagnosis Acute myocardial infarction Coronary artery disease Diabetes mellitus Hypertension Assessment/Plan Acute myocardial infarction with ST elevation occurred on arrival of the ambulance to bring him to [place] requiring emergency cardiac catheterization carried out on September 07, 2021 with stenting of the LAD. Repeat cardiac catheterization was done on September 08, 2021 due to severe persistent chest pain resistant to nitroglycerin, patent stents with moderate disease, small vessel disease. Continue on aspirin and Plavix, continue to monitor Acute respiratory failure combination of heart failure and pneumonia. Lasix was decreased due to renal failure. Maintained on dobutamine drip. I will stop it today and evaluate tolerance and response Acute on chronic renal failure, probably secondary to aggressive diuresis. Has underlying stage III kidney disease Continue to monitor Anemia, status post transfusion, maintained on aspirin and Plavix. Continue to monitor Pneumonia, managed by primary care team. Sepsis, elevated lactic acid. Could be secondary to acute myocardial infarction heart failure Congestive heart failure, acute left ventricular systolic dysfunction, ischemic cardiomyopathy Echocardiogram showed diffuse left ventricular hypokinesia with ejection fraction 30 to 35%, biatrial enlargement, pulmonary hypertension with PA pressure 50 to 55 mmHg, heavily calcified mitral valve with mild mitral regurgitation, calcified aortic valve with no significant stenosis Started on diuretics and beta-blockers, cannot tolerate NOVA inhibitor and/or ARB due to renal failure. I will wean him off dobutamine today Coronary artery disease history of stent to the LAD using Promus 2.2512 mm done in July 2015, at that time he had 50 percent right coronary artery stenosis that was treated conservatively. Cardiac catheterization March 10, 2017 revealing 90% stenosis at the mid circumflex artery, 60% stenosis proximally, successful balloon angioplasty then stent deployment to the mid circumflex artery using 2.523 mm Xience Alpine to the mid artery, the proximal portion was improved to 20% residual with balloon angioplasty. Patent stent in the LAD, mild disease in the right coronary artery nonobstructive disease. Cardiac catheterization was done on September 07, 2021 showing severe ostial and proximal LAD successful angioplasty and stenting using wendi point stent 2.75 x 28 expanded to 3 mm with excellent results. Mid LAD has moderate stenosis distal LAD has severe stenosis, there is moderate stenosis in the mid circumflex t coronary artery and mild to moderate stenosis in the mid right coronary artery Repeat cardiac catheterization was done on September 08, 2021 due to severe chest pain showing patent stent with mild to moderate disease and small vessel disease. Nonobstructive disease Malignant hypertension, resistant to multiple medication, continue to monitor blood pressure after starting all his medications Episodes of dizziness, lightheaded at home. We will monitor his blood pressure response to blood pressure medication Renal artery stenosis-angiogram done March 10, 2017 revealed severe right renal artery stenosis. Underwent renal angiogram with stenting to the right renal artery using HERCULINK ELITE 7X18 with excellent results minimal residual stenosis in March 17, 2017. Continue to monitor. Intolerance to clonidine secondary to severe dizziness. Peripheral vascular disease- Angiogram done March 10, 2017 revealed moderate disease to SFA. Was unable to visualize arteries below the knee secondary to limiting contrast exposure. Peripheral angiogram on March 24, 2017 revealing severe left iliac artery stenosis, Balloon angioplasty and deployment OMNILINK ELITE 7X39 expanded to 7.3 with excellent results, mild to moderate disease in the left lower extremity fernando n to the trifurcation. Patent stent in the right iliac artery with [id number] disease down to the trifurcation. Had abnormal HALLIE in August 2017. Complaining of increased claudication pain, HALLIE is worse in May. Did complex intervention in July 2019 with severe disease and deployment of 3 stents of the left SFA and popliteal artery using absolute Pro 6 x 60 followed by 6 x 80 and distally 6 x 100 with excellent results. Moderate to severe stenosis at the midright SFA with moderate disease at the trifurcation, patent stent in the right renal artery, mild disease at the left renal artery, heavily calcified abdominal aorta, complication with disruption of the long 6 Nepali sheath that require significant maneuvering to remove the full catheter. Excellent results. ABIs done in September 2019, denies any increased claudication pain, will continue to monitor. Baseline EKG abnormality with sinus rhythm, first-degree AV block, left ventricular hypertrophy pattern early repolarization Acute on chronic renal insufficiency, history of chronic kidney disease stage III. Deterioration in renal function due to aggressive diuresis. Continue to monitor History of stroke over 20 years ago with mild residual facial droop and occasional slurred speech, no other residual weakness Hyperlipidemia, maintained on Lipitor 10 mg daily and niacin daily, controlled. Continue to monitor. Diabetes mellitus, hold Metformin and I recommend discontinuation of Metformin, followed and managed by primary care physician Arthritis, degenerative disc disease, back pain and lower extremity pain, possible referral for orthopedic surgeon History of tobaccoism stopped over 20 years ago. DEYSI GREY MD Sep 11, 2021 08:09
--- NOTE | 2021-09-11 08:14 | Progress Note ---
Subjective Subjective Date Seen by Provider: Sep 11, 2021 Time Seen by Provider: 08:00 Pt reports that he is feeling "bad" today - however he reports that he is breathing a little better with the bipap. Pt reports that he has not had a bowel movement in the past few days. Review of Systems General: No Chills, No Night Sweats; Fatigue, Malaise; No Appetite, No Other HEENT: No Head Aches, No Visual Changes, No Eye Pain, No Ear Pain, No Dysphasia, No Sinus Congestion, No Post Nasal Drip, No Sore Throat, No Other Pulmonary: Dyspnea; No Cough, No Pleuritic Chest Pain, No Other Cardiovascular: No: Chest Pain, Palpitations, Orthopnea, Paroxysmal Noc. Dyspnea, Edema, Lt Headedness, Other Gastrointestinal: Constipation, Other (bloating) Neurological: Weakness, Confusion (CHRONIC) All Other Systems Reviewed All Other Systems Reviewed: Yes Objective Exam Vital Signs Vital Signs Date Time Temp Pulse Resp B/P (MAP) Pulse Ox O2 Delivery O2 Flow Rate FiO2 09/11/21 07:52 37.3 09/11/21 07:00 102 21 130/55 100 NIV Bilevel 55.00 09/11/21 07:00 102 09/11/21 06:52 102 22 100 40.00 09/11/21 06:00 102 2 128/57 100 NIV Bilevel 55.00 09/11/21 05:00 102 17 130/55 99 NIV Bilevel 55.00 09/11/21 04:00 37.2 09/11/21 04:00 113 25 117/59 99 NIV Bilevel 55.00 09/11/21 04:00 99 NIV Bilevel 60 09/11/21 03:02 110 20 99 40.00 09/11/21 03:00 110 22 131/51 98 NIV Bilevel 55.00 09/11/21 02:00 112 19 134/59 99 NIV Bilevel 55.00 09/11/21 01:00 113 09/11/21 01:00 113 18 129/52 99 NIV Bilevel 55.00 09/11/21 00:00 99 NIV Bilevel 60 09/11/21 00:00 120 24 129/52 96 NIV Bilevel 55.00 09/11/21 00:00 37.4 09/10/21 23:00 123 24 131/57 97 NIV Bilevel 55.00 09/10/21 22:47 128 148/52 09/10/21 22:30 129 128/74 09/10/21 22:15 133 129/50 09/10/21 22:02 131 22 98 40.00 09/10/21 22:00 129 22 141/52 95 NIV Bilevel 55.00 09/10/21 21:47 93 Vapotherm 30.00 60 09/10/21 21:00 120 19 135/56 95 Vapotherm 30.00 60.00 09/10/21 20:00 129 15 131/53 97 Vapotherm 30.00 60.00 09/10/21 20:00 99 Vapotherm 30.00 60 09/10/21 20:00 37.3 09/10/21 19:00 128 09/10/21 19:00 126 27 126/51 95 Vapotherm 30.00 60.00 09/10/21 18:58 96 Vapotherm 30.00 60 09/10/21 18:00 126 24 121/52 94 Vapotherm 30.00 60.00 09/10/21 17:44 38.6 09/10/21 17:00 125 14 127/52 94 NIV Bilevel 40.00 09/10/21 16:40 38.0 09/10/21 16:00 122 16 123/69 95 NIV Bilevel 40.00 09/10/21 16:00 99 Vapotherm 30.00 09/10/21 15:23 37.3 09/10/21 15:00 117 16 117/54 94 NIV Bilevel 40.00 09/10/21 14:55 36.6 112 22 129/55 95 Vapotherm 09/10/21 14:39 95 Vapotherm 30.00 60 09/10/21 14:00 111 138/55 95 NIV Bilevel 40.00 09/10/21 13:00 107 23 133/52 96 NIV Bilevel 40.00 09/10/21 13:00 107 09/10/21 12:12 100 141/62 09/10/21 12:08 36.1 102 22 141/62 99 Vapotherm 09/10/21 12:03 36.1 102 22 142/59 99 Vapotherm 09/10/21 12:00 99 Vapotherm 30.00 09/10/21 12:00 102 146/57 97 NIV Bilevel 40.00 09/10/21 11:58 36.2 102 22 136/55 98 Vapotherm 09/10/21 11:52 36.2 101 20 128/54 97 Vapotherm 09/10/21 11:37 36.4 09/10/21 11:00 93 15 133/57 95 NIV Bilevel 40.00 09/10/21 10:18 94 Vapotherm 30.00 60 09/10/21 10:00 87 14 122/49 99 NIV Bilevel 40.00 09/10/21 09:00 87 23 133/57 99 NIV Bilevel 40.00 I & O 09/11/21 07:00 Intake Total 1740 ml Output Total 1090 ml Balance 650 ml General Appearance: WD/WN, Mild Distress Eyes: Bilateral Eye Normal Inspection, Bilateral Eye PERRL, Bilateral Eye EOMI HEENT: Pharynx Normal Neck: Full Range of Motion, Non Tender, Supple Respiratory: Chest Non Tender, Crackles (IN BASES, DIFFICULT TO AUSCULTATE DUE TO PT MAKING NOISE WITH EXHALE) Cardiovascular: Regular Rate, Rhythm, Normal Peripheral Pulses Gastrointestinal: Normal Bowel Sounds, No Organomegaly, No Pulsatile Mass, Non Tender, Soft, Distended, Other (tympanitic) Rectal: Deferred Back: Normal Inspection Extremity: Normal Capillary Refill, Normal Inspection, Normal Range of Motion, Non Tender, No Calf Tenderness, No Pedal Edema Neurologic/Psychiatric: Alert, Other (ORIENTED TO PERSON, PLACE, FLAT AFFECT) Skin: Normal Color, Warm/Dry Lymphatic: No Adenopathy Results Lab Laboratory Tests 09/10/21 09:44: Iron Level 8L, Total Iron Binding Capacity 187L, Unsaturated Iron Binding Capacity 179, Transferrin % Saturation 4L, Ferritin 492.2H 09/10/21 17:05: White Blood Count 11.9H 09/10/21 18:35: Blood Gas Puncture Site L RAD, Blood Gas Patient Temperature 37.6, Arterial Blood pH 7.30*L, Arterial Blood Partial Pressure CO2 37, Arterial Blood Partial Pressure O2 71L, Arterial Blood HCO3 18L, Arterial Blood Total CO2 18.9L, Arterial Blood Oxygen Saturation 93L, Arterial Blood Base Excess -7.2L, Cruz Test YES-POS, Blood Gas Ventilator Setting NO, Blood Gas Inspired Oxygen 40% 09/11/21 04:55: White Blood Count 10.1, Red Blood Count 3.25L, Hemoglobin 8.6L, Hematocrit 27L, Mean Corpuscular Volume 84, Mean Corpuscular Hemoglobin 27, Mean Corpuscular Hemoglobin Concent 32, Red Cell Distribution Width 13.9, Platelet Count 394, Mean Platelet Volume 9.2, Immature Granulocyte % (Auto) 0, Neutrophils (%) (Auto) 78H, Lymphocytes (%) (Auto) 5L, Monocytes (%) (Auto) 14H, Eosinophils (%) (Auto) 3, Basophils (%) (Auto) 0, Neutrophils # (Auto) 7.9H, Lymphocytes # (Auto) 0.5L, Monocytes # (Auto) 1.4H, Eosinophils # (Auto) 0.3, Basophils # (A uto) 0.0, Immature Granulocyte # (Auto) 0.0, Neutrophils % (Manual) 80, Lymphocytes % (Manual) 4, Monocytes % (Manual) 12, Eosinophils % (Manual) 3, Basophils % (Manual) 1, Band Neutrophils 0, Hypochromasia SLIGHT, Poikilocytosis SLIGHT, Anisocytosis SLIGHT, Elliptocytes SLIGHT, Sodium Level 132L, Potassium Level 4.5, Chloride Level 103, Carbon Dioxide Level 14L, Anion Gap 15H, Blood Urea Nitrogen 50H, Creatinine 2.75H, Estimat Glomerular Filtration Rate 23, BUN/Creatinine Ratio 18, Glucose Level 190H, Calcium Level 8.4L, Corrected Calcium 9.1, Magnesium Level 2.1, Total Bilirubin 0.6, Aspartate Amino Transf (AST/SGOT) 34, Alanine Aminotransferase (ALT/SGPT) 19, Alkaline Phosphatase 52, Total Protein 6.0L, Albumin 3.1L Assessment/Plan Assessment/Plan Admission Dx CHEST PAIN STEMI DYSPNEA CHRONIC HYPERTENSION ELEVATED TROPONIN PNEUMONIA DIABETES MELLITUS ESOPHAGEAL REFLUX VASCULAR DEMENTIA Assessment and Plan CHEST PAIN STEMI DYSPNEA CHRONIC HYPERTENSION ELEVATED TROPONIN PNEUMONIA DIABETES MELLITUS ESOPHAGEAL REFLUX RENAL FAILURE ANEMIA VASCULAR DEMENTIA ABDOMINAL DISTENTION CONSTIPATION CHEST PAIN WITH DYSPNEA AND STEMI - MANAGED BY DR. GREY - SEE HIS PROCEDURE NOTE FROM HEART CATH ON ADMISSION - SMALL VESSEL DISEASE, AND DISEASE OF LAD. - MONITOR SYMPTOMS. - RESTARTED ANTIHYPERTENSIVES CHRONIC HYPERTENSION - RESTARTED ANTIHYPERTENSIVE MEDICATIONS. RENAL FAILURE - WORSENING - DISCUSSED WITH CARDIOLOGY - WILL DECREASE LASIX DOSE ANEMIA - GIVE 1 UNIT OF BLOOD TODAY, REPEAT CBC IN MORNING. PNEUMONIA - PT ON CEFEPIME CONTINUE, MONITOR SERIAL CXR'S - SHOWING IMPROVEMENT - WILL KEEP PT ON BIPAP UNTIL LUNCH TODAY IF TOLERATED DIABETES MELLITUS - FSBS, SLIDING SCALE, CHECK HGBA1C ESOPHAGEAL REFLUX - CONTINUE WITH PPI THERAPY. VASCULAR DEMENTIA - SUPPORTIVE CARE, PT WILL NEED TO CONSIDER GOING TO [facility] FOR SHORT TERM FOR THERAPY ON DISCHARGE. ABDOMINAL DISTENTION WITH CONSTIPATION - RX FOR SOAPSUDS ENEMA - PRN DULCOLAX SUPPOSITORY AND WILL GIVE MIRALAX TODAY WELL Admission Dx CHEST PAIN STEMI DYSPNEA CHRONIC HYPERTENSION ELEVATED TROPONIN PNEUMONIA DIABETES MELLITUS ESOPHAGEAL REFLUX VASCULAR DEMENTIA Clinical Quality Measures Admission Status Admission Dx CHEST PAIN STEMI DYSPNEA CHRONIC HYPERTENSION ELEVATED TROPONIN PNEUMONIA DIABETES MELLITUS ESOPHAGEAL REFLUX VASCULAR DEMENTIA ROSANNE PAN MD Sep 11, 2021 08:14
--- NOTE | 2021-09-11 09:02 | Tele-ICU Progress Note ---
Subjective Date Seen by a Provider: Sep 11, 2021 Time Seen by a Provider: 09:01 Subjective/Events-last exam Patient here today on Vapotherm and tolerating well. I was unable to connect to the video camera to visualize him. I have discussed with [employer] OPERATOR. He is overall doing much better. After he had a cardiac catheterization and PCI x2.Also has a pneumonia. Review of Systems ROS PER RN Sepsis Event Evaluation Height, Weight, BMI Height: 5'11.00" Weight: 212lbs. 9.0oz. 96.856884gf; 27.76 BMI Method:Stated Exam Exam Patient acknowledged, consented, and participated in this virtual visit which was conducted using real time audio/video Vital Signs Date Time Temp Pulse Resp B/P (MAP) Pulse Ox O2 Delivery O2 Flow Rate FiO2 09/11/21 08:00 103 11 125/49 99 NIV Bilevel 55.00 09/11/21 07:52 37.3 09/11/21 07:00 102 21 130/55 100 NIV Bilevel 55.00 09/11/21 07:00 102 09/11/21 06:52 102 22 100 40.00 09/11/21 06:00 102 2 128/57 100 NIV Bilevel 55.00 09/11/21 05:00 102 17 130/55 99 NIV Bilevel 55.00 09/11/21 04:00 37.2 09/11/21 04:00 113 25 117/59 99 NIV Bilevel 55.00 09/11/21 04:00 99 NIV Bilevel 60 09/11/21 03:02 110 20 99 40.00 09/11/21 03:00 110 22 131/51 98 NIV Bilevel 55.00 09/11/21 02:00 112 19 134/59 99 NIV Bilevel 55.00 09/11/21 01:00 113 09/11/21 01:00 113 18 129/52 99 NIV Bilevel 55.00 09/11/21 00:00 99 NIV Bilevel 60 09/11/21 00:00 120 24 129/52 96 NIV Bilevel 55.00 09/11/21 00:00 37.4 09/10/21 23:00 123 24 131/57 97 NIV Bilevel 55.00 09/10/21 22:47 128 148/52 09/10/21 22:30 129 128/74 09/10/21 22:15 133 129/50 09/10/21 22:02 131 22 98 40.00 09/10/21 22:00 129 22 141/52 95 NIV Bilevel 55.00 09/10/21 21:47 93 Vapotherm 30.00 60 09/10/21 21:00 120 19 135/56 95 Vapotherm 30.00 60.00 09/10/21 20:00 129 15 131/53 97 Vapotherm 30.00 60.00 09/10/21 20:00 99 Vapotherm 30.00 60 09/10/21 20:00 37.3 09/10/21 19:00 128 09/10/21 19:00 126 27 126/51 95 Vapotherm 30.00 60.00 09/10/21 18:58 96 Vapotherm 30.00 60 09/10/21 18:00 126 24 121/52 94 Vapotherm 30.00 60.00 09/10/21 17:44 38.6 09/10/21 17:00 125 14 127/52 94 NIV Bilevel 40.00 09/10/21 16:40 38.0 09/10/21 16:00 122 16 123/69 95 NIV Bilevel 40.00 09/10/21 16:00 99 Vapotherm 30.00 09/10/21 15:23 37.3 09/10/21 15:00 117 16 117/54 94 NIV Bilevel 40.00 09/10/21 14:55 36.6 112 22 129/55 95 Vapotherm 09/10/21 14:39 95 Vapotherm 30.00 60 09/10/21 14:00 111 138/55 95 NIV Bilevel 40.00 09/10/21 13:00 107 23 133/52 96 NIV Bilevel 40.00 09/10/21 13:00 107 09/10/21 12:12 100 141/62 09/10/21 12:08 36.1 102 22 141/62 99 Vapotherm 09/10/21 12:03 36.1 102 22 142/59 99 Vapotherm 09/10/21 12:00 99 Vapotherm 30.00 09/10/21 12:00 102 146/57 97 NIV Bilevel 40.00 09/10/21 11:58 36.2 102 22 136/55 98 Vapotherm 09/10/21 11:52 36.2 101 20 128/54 97 Vapotherm 09/10/21 11:37 36.4 09/10/21 11:00 93 15 133/57 95 NIV Bilevel 40.00 09/10/21 10:18 94 Vapotherm 30.00 60 09/10/21 10:00 87 14 122/49 99 NIV Bilevel 40.00 I & O 09/11/21 07:00 Intake Total 1740 ml Output Total 1090 ml Balance 650 ml Height & Weight Height: 5'11.00" Weight: 212lbs. 9.0oz. 96.181861qh; 27.76 BMI Method:Stated General Appearance: Mild Distress HEENT: Pharynx Normal Neck: Full Range of Motion, Non Tender, Supple Respiratory: Chest Non Tender, Crackles (IN BASES, DIFFICULT TO AUSCULTATE DUE TO PT MAKING NOISE WITH EXHALE) Cardiovascular: Regular Rate, Rhythm, Normal Peripheral Pulses Capillary Refill: Less Than 3 Seconds Extremity: Normal Capillary Refill, Normal Inspection, Normal Range of Motion, Non Tender, No Calf Tenderness, No Pedal Edema Neurologic/Psychiatric: Alert, Other (ORIENTED TO PERSON, PLACE, FLAT AFFECT) Skin: Normal Color, Warm/Dry Lymphatic: No Adenopathy Other comments PE PER RN Results Lab Laboratory Tests 09/10/21 05:17 09/10/21 17:05 09/11/21 04:55 Assessment/Plan Assessment/Plan 1. STEMI status post PCI 2. Acute hypoxic respiratory failure secondary to pneumonia. 3. Hypertension stable 4. Type 2 diabetes mellitus. Recommendations. 1. We will continue to wean oxygen as tolerated 2. STEMI management per cardiology service 3. Continue Protonix 4. Management of diabetes per primary care team. 5. DVT prophylaxis and ulcer prophylaxis 6. Continue antibiotic therapy per primary team. 7. Monitor BUN and creatinine and management of Lasix per cardiology service. Critical Care: Critically Ill Patient Time spent with patient (mins): 20 SUKHDEV NAVA MD Sep 11, 2021 09:02
[2021-09-11] MEDS: ISOSORBIDE MONONITRATE 30 MG (IMDUR) TAB PO SCH (09:07)
[2021-09-11] MEDS: amLODIPine 10 MG (NORVASC) TAB PO SCH (09:07)
[2021-09-11] MEDS: PANTOPRAZOLE 40 MG (PROTONIX) VIAL IV SCH (09:07)
[2021-09-11] MEDS: ASPIRIN E.C. 81 MG (ECOTRIN) TAB PO SCH (09:07)
[2021-09-11] MEDS: CLOPIDOGREL 75 MG (PLAVIX) TABLET PO SCH (09:07)
[2021-09-11 09:39] VITALS: BP 134/56
[2021-09-11] MEDS ORDERED: SIMETHICONE 80 MG (MYLICON) CHEW PO NR (16:45)
[2021-09-11] MEDS: NITRO DRIP 25000 MCG/D5W 250 ML IV SCH (17:40)
[2021-09-11 18:59] VITALS: BP 123/58
[2021-09-11] MEDS: SIMETHICONE 80 MG (MYLICON) CHEW PO SCH ×2 (20:37→21:04)
[2021-09-11] MEDS: polyethylene glycoL POWDER 17 GM (MIRALAX) PACK PO SCH (21:05)
[2021-09-11 22:40] VITALS: BP 127/60
[2021-09-12] VITALS (7 sets, daily range): BP systolic 117–148; BP diastolic 54–80
[2021-09-12] MEDS: DexMEDEtomidine 250 ML DRIP 250 ML IV SCH (02:20)
[2021-09-12] MEDS: RT-ALBUTEROL/IPRATROPIUM 3 ML (DUONEB) VIAL INH SCH ×6 (02:43→21:15)
[2021-09-12] MEDS: CEFEPIME INJECTION 1,000 MG in NS (IVPB) 50 ML IV SCH ×2 (04:15→15:13)
[2021-09-12 05:09] LABS: BASOPHILS % (AUTO) 0 % (0-10); EOSINOPHILS # (AUTO) 0.5 10^3/uL (0.0-0.3); EOSINOPHILS % (AUTO) 4 % (0-10); HEMATOCRIT 28 % (40-54); HEMOGLOBIN 8.6 g/dL (13.3-17.7); LYMPHOCYTES # (AUTO) 0.4 10^3/uL (1.0-4.0); LYMPHOCYTES % (AUTO) 4 % (12-44); MEAN CORPUSCULAR HEMOGLOBIN 26 pg (25-34); MEAN CORPUSCULAR HGB CONC 31 g/dL (32-36); MEAN CORPUSCULAR VOLUME 84 fL (80-99); MEAN PLATELET VOLUME 9.4 fL (9.0-12.2); MONOCYTES # (AUTO) 1.4 10^3/uL (0.0-1.0); MONOCYTES % (AUTO) 12 % (0-12); NEUTROPHILS # (AUTO) 8.8 10^3/uL (1.8-7.8); NEUTROPHILS % (AUTO) 79 % (42-75); PLATELET COUNT 447 10^3/uL (130-400); WHITE BLOOD COUNT 11.1 10^3/uL (4.3-11.0)
[2021-09-12] MEDS: LORazepam INJ 2 MG/ML (ATIVAN) VIAL IVP PRN (05:19)
[2021-09-12 05:24] LABS: ALBUMIN 3.2 GM/DL (3.2-4.5)
[2021-09-12 05:25] LABS: CALCIUM 8.5 MG/DL (8.5-10.1)
[2021-09-12 05:27] LABS: TOTAL PROTEIN 6.1 GM/DL (6.4-8.2)
[2021-09-12 05:28] LABS: BILIRUBIN,TOTAL 0.5 MG/DL (0.1-1.0)
[2021-09-12 05:30] LABS: CREATININE SERUM 2.38 MG/DL (0.60-1.30)
[2021-09-12 05:33] LABS: MAGNESIUM 2.2 MG/DL (1.6-2.4)
[2021-09-12] MEDS: SUCRALFATE 1 GM (CARAFATE) TAB PO SCH ×4 (07:02→21:28)
[2021-09-12] MEDS: hydrALAZINE (APRESOLINE) 25 MG TAB PO SCH ×3 (07:02→21:28)
[2021-09-12] MEDS ORDERED: FUROSEMIDE 40 MG/4 ML INJ (LASIX) IVP ONE (07:45)
[2021-09-12] MEDS: NS IV 1000 ML 1,000 ML IV SCH (07:46)
[2021-09-12 08:00] LABS: ABG BASE EXCESS -12.6 MMOL/L (-2.5-2.5); ABG OXYGEN SATURATION 87 % (94-100); ABG PCO2 44 MMHG (35-45); ABG PO2 64 MMHG (79-93)
[2021-09-12 08:02] LABS: ABG PH 7.15 (7.37-7.43); ALLENS TEST YES-POS; INSPIRED O2 90% BIPAP; PATIENT TEMP 37.1; VENTILATOR NO
[2021-09-12] MEDS ORDERED: SODIUM BICARB 8.4% 50 MEQ/50 ML (ABBOTT) SYR IV ONE (08:15)
--- NOTE | 2021-09-12 08:17 | Diagnostic Imaging Report ---
Indication: Difficulty breathing. Time of Exam: 7:49 AM Correlation is made with prior chest from one day earlier. The heart is enlarged. There is worsening airspace infiltrates bilaterally. There is airspace infiltrate throughout the left lung as well as increasing consolidation right mid and lower lung field. No effusion or pneumothorax is seen. IMPRESSION: Worsening bilateral airspace pulmonary infiltrates since exam one day earlier. Dictated by: Dictated on workstation # [id number]
[2021-09-12] MEDS ORDERED: SODIUM BICARB 8.4% 50 MEQ/50 ML (ABBOTT) SYR IV NR (08:23)
[2021-09-12] MEDS: ISOSORBIDE MONONITRATE 30 MG (IMDUR) TAB PO SCH (08:47)
[2021-09-12] MEDS: amLODIPine 10 MG (NORVASC) TAB PO SCH (08:47)
[2021-09-12] MEDS: PANTOPRAZOLE 40 MG (PROTONIX) VIAL IV SCH (08:47)
[2021-09-12] MEDS: SIMETHICONE 80 MG (MYLICON) CHEW PO SCH ×4 (08:47→21:29)
[2021-09-12] MEDS: CLOPIDOGREL 75 MG (PLAVIX) TABLET PO SCH (08:47)
[2021-09-12] MEDS: ASPIRIN E.C. 81 MG (ECOTRIN) TAB PO SCH (08:47)
--- NOTE | 2021-09-12 09:03 | Tele-ICU Progress Note ---
Subjective Date Seen by a Provider: Sep 12, 2021 Time Seen by a Provider: 09:02 Subjective/Events-last exam Patient here today looks deteriorated with hypoxia. ABG revealed metabolic acidosis. 100 mEq of sodium bicarbonate IV given. Chest x-ray reviewed and showed worsening bilateral infiltrates. I have suggested to intubation but patient is completed DNR. An NG tube has been inserted due to the fact that his abdomen is distended. He immediately 200 cc of fluid came out after suction. He is on broad-spectrum antibiotic. Video visit made and discussed with the CORRECTIONAL COOK. Patient is too sick to do any conversation. Review of Systems ROS PER RN Sepsis Event Evaluation Height, Weight, BMI Height: 5'11.00" Weight: 212lbs. 9.0oz. 96.016477mf; 27.76 BMI Method:Stated Exam Exam Patient acknowledged, consented, and participated in this virtual visit which was conducted using real time audio/video Vital Signs Date Time Temp Pulse Resp B/P (MAP) Pulse Ox O2 Delivery O2 Flow Rate FiO2 09/12/21 08:00 128 32 144/70 89 NIV Bilevel 90.00 09/12/21 07:57 128 32 88 90.00 09/12/21 07:42 37.1 09/12/21 07:00 125 31 142/69 91 NIV Bilevel 90.00 09/12/21 07:00 128 09/12/21 06:00 112 23 131/59 94 NIV Bilevel 90.00 09/12/21 05:45 93 NIV Bilevel 90.00 09/12/21 05:30 NIV Bilevel 100.00 09/12/21 05:00 128 35 135/50 87 NIV Bilevel 50.00 09/12/21 04:30 NIV Bilevel 50.00 09/12/21 04:00 89 NIV Bilevel 85 09/12/21 04:00 96 18 124/69 91 NIV Bilevel 30.00 09/12/21 03:00 96 22 127/54 91 NIV Bilevel 30.00 09/12/21 02:43 93 23 90 30.00 09/12/21 02:20 110 131/60 09/12/21 02:00 98 27 131/60 89 NIV Bilevel 30.00 09/12/21 01:02 93 09/12/21 01:00 94 24 133/57 92 NIV Bilevel 30.00 09/12/21 00:19 92 NIV Bilevel 30 09/12/21 00:00 94 15 119/56 92 NIV Bilevel 30.00 09/11/21 23:00 105 16 131/52 93 NIV Bilevel 30.00 09/11/21 22:40 94 23 90 30.00 09/11/21 22:00 99 23 127/60 96 NIV Bilevel 30.00 09/11/21 21:00 106 26 130/56 96 NIV Bilevel 30.00 09/11/21 20:00 105 26 138/93 93 NIV Bilevel 30.00 09/11/21 20:00 96 NIV Bilevel 30 09/11/21 19:43 36.6 09/11/21 19:00 96 17 123/58 91 NIV Bilevel 30.00 09/11/21 19:00 96 09/11/21 18:59 96 18 94 30.00 09/11/21 18:24 NIV Bilevel 30.00 09/11/21 18:00 26 109/61 87 Vapotherm 30.00 50.00 09/11/21 17:00 101 24 137/72 96 Vapotherm 30.00 50.00 09/11/21 16:00 98 20 118/58 95 Vapotherm 30.00 50.00 09/11/21 16:00 97 Vapotherm 30.00 50 09/11/21 16:00 37.1 09/11/21 15:00 97 16 108/50 97 Vapotherm 30.00 50.00 09/11/21 14:55 98 Vapotherm 30.00 50 09/11/21 14:00 99 133/58 97 Vapotherm 30.00 50.00 09/11/21 13:51 Vapotherm 30.00 50.00 09/11/21 13:42 Vapotherm 30.00 60.00 09/11/21 13:00 95 14 127/56 96 NIV Bilevel 40.00 09/11/21 13:00 96 09/11/21 12:22 97 NIV Bilevel 40 09/11/21 12:00 96 16 121/48 97 NIV Bilevel 40.00 09/11/21 11:58 37.4 09/11/21 11:00 98 22 122/53 93 NIV Bilevel 40.00 09/11/21 10:00 102 20 124/50 96 NIV Bilevel 40.00 09/11/21 09:39 101 23 99 30.00 09/11/21 09:27 NIV Bilevel 40.00 I & O 09/12/21 07:00 Intake Total 2620 ml Output Total 1000 ml Balance 1620 ml Height & Weight Height: 5'11.00" Weight: 212lbs. 9.0oz. 96.124832nc; 27.76 BMI Method:Stated General Appearance: WD/WN, Mild Distress HEENT: Pharynx Normal Neck: Full Range of Motion, Non Tender, Supple Respiratory: Chest Non Tender, Crackles (IN BASES, DIFFICULT TO AUSCULTATE DUE TO PT MAKING NOISE WITH EXHALE) Cardiovascular: Regular Rate, Rhythm, Normal Peripheral Pulses Capillary Refill: Less Than 3 Seconds Extremity: Normal Capillary Refill, Normal Inspection, Normal Range of Motion, Non Tender, No Calf Tenderness, No Pedal Edema Neurologic/Psychiatric: Alert, Other (ORIENTED TO PERSON, PLACE, FLAT AFFECT) Skin: Normal Color, Warm/Dry Lymphatic: No Adenopathy Other comments PE PER RN Results Lab Laboratory Tests 09/10/21 17:05 09/11/21 04:55 09/12/21 04:22 Assessment/Plan Assessment/Plan 1. STEMI status post PCI 2. Acute hypoxic respiratory failure secondary to pneumonia WHICH IS WORSENING. 3. Hypertension stable 4. Type 2 diabetes mellitus. Recommendations. 1. Suggested intubation but he is DNR status. 2. STEMI management per cardiology service 3. Continue Protonix 4. will give sodium bicarbonate 100meq ivp now. 5. DVT prophylaxis and ulcer prophylaxis 6. Continue antibiotic therapy per primary team. 7. Monitor BUN and creatinine and management of Lasix per cardiology service. 8. Prognosis is grave. Critical Care: Critically Ill Patient Time spent with patient (mins): 25 SUKHDEV NAVA MD Sep 12, 2021 09:03
--- NOTE | 2021-09-12 09:19 | Diagnostic Imaging Report ---
INDICATION: NG tube placement. KUB 8:49 AM FINDINGS: There is NG tube that appears to be in the stomach. Bowel gas pattern is normal. There are no pathologic masses or calcifications. IMPRESSION: Unremarkable abdomen. NG tube appears to be in the stomach. Dictated by: Dictated on workstation # [id number]
--- NOTE | 2021-09-12 12:54 | Progress Note ---
Subjective Subjective Date Seen by Provider: Sep 12, 2021 Time Seen by Provider: 08:00 PT CONTINUES TO SHOW DECLINE, DECREASED CONVERSATION TODAY. DISCUSSED WITH THE PT THAT HE IS DECLINING. ADVISED PT WE WOULD CALL HIS DPOA. PT'S NURSE CONCERNED ABOUT PROGRESSIVE DECLINE, THEY HAVE TRIED TO GET AHOLD OF DPOA, NO ANSWER. Review of Systems General: No Chills, No Night Sweats; Fatigue, Malaise; No Appetite, No Other HEENT: No Head Aches, No Visual Changes, No Eye Pain, No Ear Pain, No Dysphasia, No Sinus Congestion, No Post Nasal Drip, No Sore Throat, No Other Pulmonary: Dyspnea; No Cough, No Pleuritic Chest Pain, No Other Cardiovascular: No: Chest Pain, Palpitations, Orthopnea, Paroxysmal Noc. Dyspnea, Edema, Lt Headedness, Other Gastrointestinal: Constipation, Other (bloating) Neurological: Weakness, Confusion (CHRONIC) All Other Systems Reviewed All Other Systems Reviewed: Yes Objective Exam Vital Signs Vital Signs Date Time Temp Pulse Resp B/P (MAP) Pulse Ox O2 Delivery O2 Flow Rate FiO2 09/12/21 12:38 NIV Bilevel 80.00 09/12/21 12:00 114 29 129/62 94 NIV Bilevel 60.00 09/12/21 11:00 111 25 122/63 94 NIV Bilevel 60.00 09/12/21 11:00 37.1 110 93 60 09/12/21 10:57 110 28 99 90.00 09/12/21 10:00 110 23 136/65 97 NIV Bilevel 90.00 09/12/21 09:00 115 29 117/55 96 NIV Bilevel 90.00 09/12/21 08:00 128 32 144/70 89 NIV Bilevel 90.00 09/12/21 07:57 128 32 88 90.00 09/12/21 07:48 88 NIV Bilevel 90 09/12/21 07:42 37.1 09/12/21 07:00 125 31 142/69 91 NIV Bilevel 90.00 09/12/21 07:00 128 09/12/21 06:00 112 23 131/59 94 NIV Bilevel 90.00 09/12/21 05:45 93 NIV Bilevel 90.00 09/12/21 05:30 NIV Bilevel 100.00 09/12/21 05:00 128 35 135/50 87 NIV Bilevel 50.00 09/12/21 04:30 NIV Bilevel 50.00 09/12/21 04:00 89 NIV Bilevel 85 09/12/21 04:00 96 18 124/69 91 NIV Bilevel 30.00 09/12/21 03:00 96 22 127/54 91 NIV Bilevel 30.00 09/12/21 02:43 93 23 90 30.00 09/12/21 02:20 110 131/60 09/12/21 02:00 98 27 131/60 89 NIV Bilevel 30.00 09/12/21 01:02 93 09/12/21 01:00 94 24 133/57 92 NIV Bilevel 30.00 09/12/21 00:19 92 NIV Bilevel 30 09/12/21 00:00 94 15 119/56 92 NIV Bilevel 30.00 09/11/21 23:00 105 16 131/52 93 NIV Bilevel 30.00 09/11/21 22:40 94 23 90 30.00 09/11/21 22:00 99 23 127/60 96 NIV Bilevel 30.00 09/11/21 21:00 106 26 130/56 96 NIV Bilevel 30.00 09/11/21 20:00 105 26 138/93 93 NIV Bilevel 30.00 09/11/21 20:00 96 NIV Bilevel 30 09/11/21 19:43 36.6 09/11/21 19:00 96 17 123/58 91 NIV Bilevel 30.00 09/11/21 19:00 96 09/11/21 18:59 96 18 94 30.00 09/11/21 18:24 NIV Bilevel 30.00 09/11/21 18:00 26 109/61 87 Vapotherm 30.00 50.00 09/11/21 17:00 101 24 137/72 96 Vapotherm 30.00 50.00 09/11/21 16:00 98 20 118/58 95 Vapotherm 30.00 50.00 09/11/21 16:00 97 Vapotherm 30.00 50 09/11/21 16:00 37.1 09/11/21 15:00 97 16 108/50 97 Vapotherm 30.00 50.00 09/11/21 14:55 98 Vapotherm 30.00 50 09/11/21 14:00 99 133/58 97 Vapotherm 30.00 50.00 09/11/21 13:51 Vapotherm 30.00 50.00 09/11/21 13:42 Vapotherm 30.00 60.00 09/11/21 13:00 95 14 127/56 96 NIV Bilevel 40.00 09/11/21 13:00 96 I & O 09/12/21 06:59 Intake Total 2620 ml Output Total 1000 ml Balance 1620 ml General Appearance: WD/WN, Mild Distress Eyes: Bilateral Eye Normal Inspection, Bilateral Eye PERRL, Bilateral Eye EOMI HEENT: Pharynx Normal Neck: Full Range of Motion, Non Tender, Supple Respiratory: Chest Non Tender, Crackles (IN BASES, DIFFICULT TO AUSCULTATE DUE TO PT MAKING NOISE WITH EXHALE) Cardiovascular: Regular Rate, Rhythm, Normal Peripheral Pulses Gastrointestinal: Normal Bowel Sounds, No Organomegaly, No Pulsatile Mass, Non Tender, Soft, Distended, Other (tympanitic) Rectal: Deferred Back: Normal Inspection Extremity: Normal Capillary Refill, Normal Inspection, Normal Range of Motion, Non Tender, No Calf Tenderness, No Pedal Edema Neurologic/Psychiatric: Alert, Other (ORIENTED TO PERSON, PLACE, FLAT AFFECT) Skin: Normal Color, Warm/Dry Lymphatic: No Adenopathy Results Lab Laboratory Tests 09/12/21 04:22: White Blood Count 11.1H, Red Blood Count 3.33L, Hemoglobin 8.6L, Hematocrit 28L, Mean Corpuscular Volume 84, Mean Corpuscular Hemoglobin 26, Mean Corpuscular Hemoglobin Concent 31L, Red Cell Distribution Width 14.0, Platelet Count 447H, Mean Platelet Volume 9.4, Immature Granulocyte % (Auto) 1, Neutrophils (%) (Auto) 79H, Lymphocytes (%) (Auto) 4L, Monocytes (%) (Auto) 12, Eosinophils (%) (Auto) 4, Basophils (%) (Auto) 0, Neutrophils # (Auto) 8.8H, Lymphocytes # (Auto) 0.4L, Monocytes # (Auto) 1.4H, Eosinophils # (Auto) 0.5H, Basophils # (Auto) 0.0, Immature Granulocyte # (Auto) 0.1, Sodium Level 132L, Potassium Level 5.0, Chloride Level 106, Carbon Dioxide Level 13L, Anion Gap 13, Blood Urea Nitrogen 50H, Creatinine 2.38H, Estimat Glomerular Filtration Rate 27, BUN/Creatinine Ratio 21, Glucose Level 161H, Calcium Level 8.5, Corrected Calcium 9.1, Magnesium Level 2.2, Total Bilirubin 0.5, Aspartate Amino Transf (AST/SGOT) 36H, Alanine Aminotransferase (ALT/SGPT) 22, Alkaline Phosphatase 50, Total Protein 6.1L, Albumin 3.2 09/12/21 07:53: Blood Gas Puncture Site LEFT RADIAL, Blood Gas Patient Temperature 37.1, Arterial Blood pH 7.15*L, Arterial Blood Partial Pressure CO2 44, Arterial Blood Partial Pressure O2 64L, Arterial Blood HCO3 15*L, Arterial Blood Total CO2 1 6.0L, Arterial Blood Oxygen Saturation 87L, Arterial Blood Base Excess -12.6L, Cruz Test YES-POS, Blood Gas Ventilator Setting NO, Blood Gas Inspired Oxygen 90% BIPAP 09/12/21 11:14: Glucometer 177H Assessment/Plan Assessment/Plan Admission Dx CHEST PAIN STEMI DYSPNEA CHRONIC HYPERTENSION ELEVATED TROPONIN PNEUMONIA DIABETES MELLITUS ESOPHAGEAL REFLUX VASCULAR DEMENTIA Assessment and Plan CHEST PAIN STEMI DYSPNEA CHRONIC HYPERTENSION ELEVATED TROPONIN PNEUMONIA RESPIRATORY FAILURE DIABETES MELLITUS ESOPHAGEAL REFLUX RENAL FAILURE ANEMIA VASCULAR DEMENTIA ABDOMINAL DISTENTION CONSTIPATION CHEST PAIN WITH DYSPNEA AND STEMI - MANAGED BY DR. GREY - SEE HIS PROCEDURE NOTE FROM HEART CATH ON ADMISSION - SMALL VESSEL DISEASE, AND DISEASE OF LAD. - MONITOR SYMPTOMS. - RESTARTED ANTIHYPERTENSIVES CHRONIC HYPERTENSION - RESTARTED ANTIHYPERTENSIVE MEDICATIONS. RENAL FAILURE - STABLE- DISCUSSED WITH CARDIOLOGY - CONTINUE WITH PRN LASIX DOSE ANEMIA - PT GIVEN BLOOD 09/10/21. PNEUMONIA WITH RESPIRATORY FAILURE - DEFER TO EICU PULMONOLOGY. - PT ON CEFEPIME CONTINUE, MONITOR SERIAL CXR'S - SHOWING WORSENING FAILURE AND PNEUMONIA, PT IS DNR/DNI - ATTEMPTED MULTIPLE TIMES TO REACH OUT TO HIS DPOA WITH NO ANSWER, NURSING STAFF WILL CONTINUE TO ATTEMPT CONTACT TODAY - SEVERAL MESSAGES LEFT ON THE VOICE MAIL. PT HAS DECLINED THIS RENT AND MISCELLANEOUS REMITTANCE CLERK AND THE NURSING STAFF FROM REACHING OUT TO HIS DTR. - WILL KEEP PT ON BIPAP CONTINOUSLY DIABETES MELLITUS - FSBS, SLIDING SCALE INSULIN ESOPHAGEAL REFLUX - CONTINUE WITH PPI THERAPY. VASCULAR DEMENTIA - SUPPORTIVE CARE, PT WILL NEED PRISON ON DISCHARGE. ABDOMINAL DISTENTION WITH CONSTIPATION -PT HAS CONTINUOUS ABDOMINAL DISTENTION - NG TUBE TO BE PLACED TODAY. Admission Dx CHEST PAIN STEMI DYSPNEA CHRONIC HYPERTENSION ELEVATED TROPONIN PNEUMONIA DIABETES MELLITUS ESOPHAGEAL REFLUX VASCULAR DEMENTIA Clinical Quality Measures Admission Status Admission Dx CHEST PAIN STEMI DYSPNEA CHRONIC HYPERTENSION ELEVATED TROPONIN PNEUMONIA DIABETES MELLITUS ESOPHAGEAL REFLUX VASCULAR DEMENTIA ROSANNE PAN MD Sep 12, 2021 12:54
[2021-09-12] MEDS: SODIUM BICARBONATE 650 MG TABLET PO SCH ×2 (14:41→21:28)
--- NOTE | 2021-09-12 16:27 | Cardiology Progress Note ---
Progress Note-Cardiology Events since last exam Date Seen by Provider: Sep 12, 2021 Time Seen by Provider: 16:28 Events since last exam We are following him due to acute myocardial infarction complicated by heart failure and acute respiratory failure. He is currently on Precedex infusion due to some agitation earlier today. He was sleeping and I could not arouse him. He was on BiPAP. I did speak with his nurse. Certain portions of this document may have been dictated utilizing voice recognition technology. Inherent to this technology, typographical and grammatical errors may exist. As much as I am diligent to identify and correct these mistakes, some errors may remain in the document. Vitals Last set of Vitals Signs Vital Signs 09/12/21 09/12/21 09/12/21 11:00 12:15 15:00 Temp 37.1 Pulse 94 Resp 15 B/P (MAP) 104/60 Pulse Ox 97 O2 Delivery NIV Bilevel O2 Flow Rate 60.00 FiO2 90 Labs Labs Laboratory Tests 09/12/21 04:22 Exam Vital Signs Vital Signs Date Time Temp Pulse Resp B/P (MAP) Pulse Ox O2 Delivery O2 Flow Rate FiO2 09/12/21 15:00 94 15 104/60 97 NIV Bilevel 60.00 09/12/21 12:15 90 09/12/21 11:00 37.1 Physical Exam General: Sedated with Precedex. He is on BiPAP. Eye: No xanthelasma. HENT: Normocephalic. Neck: Jugular venous pressure does not appear elevated. Respiratory: Lungs have coarse upper airway sounds from the BiPAP. Breath sounds are equal. Symmetrical chest wall expansion. Cardiovascular: Normal rate. Regular rhythm. Distant S1/S2. No murmur. No gallop. Trace bilateral pretibial edema. Gastrointestinal: Soft. Normal bowel sounds. Skin: Warm. Dry. Neurologic: Sedated with Precedex. Psychiatric: Sedated. Labs Laboratory Tests Test 09/12/21 04:22 09/12/21 07:53 09/12/21 11:14 Range/Units White Blood Count 11.1 H 4.3-11.0 10^3/uL Red Blood Count 3.33 L 4.30-5.52 10^6/uL Hemoglobin 8.6 L 13.3-17.7 g/dL Hematocrit 28 L 40-54 % Mean Corpuscular Volume 84 80-99 fL Mean Corpuscular Hemoglobin 26 25-34 pg Mean Corpuscular Hemoglobin Concent 31 L 32-36 g/dL Red Cell Distribution Width 14.0 10.0-14.5 % Platelet Count 447 H 130-400 10^3/uL Mean Platelet Volume 9.4 9.0-12.2 fL Immature Granulocyte % (Auto) 1 % Neutrophils (%) (Auto) 79 H 42-75 % Lymphocytes (%) (Auto) 4 L 12-44 % Monocytes (%) (Auto) 12 0-12 % Eosinophils (%) (Auto) 4 0-10 % Basophils (%) (Auto) 0 0-10 % Neutrophils # (Auto) 8.8 H 1.8-7.8 10^3/uL Lymphocytes # (Auto) 0.4 L 1.0-4.0 10^3/uL Monocytes # (Auto) 1.4 H 0.0-1.0 10^3/uL Eosinophils # (Auto) 0.5 H 0.0-0.3 10^3/uL Basophils # (Auto) 0.0 0.0-0.1 10^3/uL Immature Granulocyte # (Auto) 0.1 0.0-0.1 10^3/uL Sodium Level 132 L 135-145 MMOL/L Potassium Level 5.0 3.6-5.0 MMOL/L Chloride Level 106 98-107 MMOL/L Carbon Dioxide Level 13 L 21-32 MMOL/L Anion Gap 13 5-14 MMOL/L Blood Urea Nitrogen 50 H 7-18 MG/DL Creatinine 2.38 H 0.60-1.30 MG/DL Estimat Glomerular Filtration Rate 27 BUN/Creatinine Ratio 21 Glucose Level 161 H 70-105 MG/DL Calcium Level 8.5 8.5-10.1 MG/DL Corrected Calcium 9.1 8.5-10.1 MG/DL Magnesium Level 2.2 1.6-2.4 MG/DL Total Bilirubin 0.5 0.1-1.0 MG/DL Aspartate Amino Transf (AST/SGOT) 36 H 5-34 U/L Alanine Aminotransferase (ALT/SGPT) 22 0-55 U/L Alkaline Phosphatase 50 40-136 U/L Total Protein 6.1 L 6.4-8.2 GM/DL Albumin 3.2 3.2-4.5 GM/DL Blood Gas Puncture Site LEFT RADIAL Blood Gas Patient Temperature 37.1 Arterial Blood pH 7.15 *L 7.37-7.43 Arterial Blood Partial Pressure CO2 44 35-45 MMHG Arterial Blood Partial Pressure O2 64 L 79-93 MMHG Arterial Blood HCO3 15 *L 23-27 MMOL/L Arterial Blood Total CO2 16.0 L 21.0-31.0 MMOL/L Arterial Blood Oxygen Saturation 87 L 94-100 % Arterial Blood Base Excess -12.6 L -2.5-2.5 MMOL/L Cruz Test YES-POS Blood Gas Ventilator Setting NO Blood Gas Inspired Oxygen 90% BIPAP Glucometer 177 H 70-110 MG/DL Diagnosis/Problems Diagnosis/Problems (1) ST elevation myocardial infarction (STEMI) of anterior wall, initial episode of care Assessment & Plan: This was treated with 1 drug-eluting stent to the proximal left anterior descending coronary artery. He is on aspirin, clopidogrel, beta- teofilo, long-acting nitrates and high-dose statin medication. The day following his procedure he had recurrent angina and had a second cardiac catheterization which showed the stent to be patent. He has not complained of any recurrent angina since then. His post procedure course has been complicated with ongoing respiratory failure likely due to acute heart failure and possibly pneumonia. (2) Acute HFrEF (heart failure with reduced ejection fraction) Assessment & Plan: He appears to have evidence of pulmonary congestion on his c hest x-ray. He has been receiving intravenous fluids due to his renal insufficiency. However, he had a previously normal ejection fraction earlier this year that is now moderately impaired. I recommend we give him additional doses of diuretic and stop the intravenous fluids. We will continue the current guideline directed medical therapy.He appears to have evidence of pulmonary congestion on his chest x-ray. He has been receiving intravenous fluids due to his renal insufficiency. However, he had a previous low normal ejection fraction that is now moderately impaired. I recommend we give him additional doses of diuretic and stop the intravenous fluids. We will continue the current guideline directed medical therapy as tolerated by blood pressure and renal function. (3) Ischemic cardiomyopathy Assessment & Plan: He had an echocardiogram in May 2021 that showed a normal ejection fraction. Now his echocardiogram shows moderate left v entricular systolic dysfunction. Some of this may be due to stunning from the acute myocardial infarction. He is on metoprolol succinate, isosorbide mononitrate and hydralazine. He is not a good candidate for NOVA inhibitor, ARB or aldosterone antagonist due to his acute kidney injury. We may need to consider a LifeVest prior to discharge but he is currently DO NOT RESUSCITATE. (4) Primary hypertension Assessment & Plan: Blood pressures have been intermittently elevated. He has been receiving amlodipine but due to the moderate left ventricular systolic dysfunction, this may not be the best choice for his hypertension. He had been on metoprolol succinate but this is currently on hold because he is now n.p.o. I will attempt to restart this medication tomorrow. Continue long-acting nitrate and hydralazine. If his blood pressure becomes further elevated when we stop the amlodipine, I would recommend increasing the dose of hydralazine and/or metoprolol. (5) Mixed hyperlipidemia Assessment & Plan: Continue high-dose statin medication in light of the acute myocardial infarction. (6) Acute kidney injury superimposed on chronic kidney disease Assessment & Plan: He has been receiving intravenous fluids but his renal function has not changed. This is likely multifactorial. Some of this could be due to renal venous hypertension from the acute heart failure. I recommend we treat him with intravenous furosemide and stop the IV fluids and see how his renal function responds. Unfortunately, this is a poor prognostic indicator. (7) Acute on chronic respiratory failure with hypoxia and hypercapnia Assessment & Plan: Most likely multifactorial due to heart failure and possibly pneumonia. He continues to intermittently require BiPAP. BHAVYA RAMIREZ JR, MD Sep 12, 2021 16:27
[2021-09-12] MEDS ORDERED: FUROSEMIDE 40 MG/4 ML INJ (LASIX) IVP NR (16:30)
[2021-09-12] MEDS: polyethylene glycoL POWDER 17 GM (MIRALAX) PACK PO SCH (21:28)
[2021-09-13] MEDS: inSUlin ASPART (NovoLOG) 1 UNIT/0.01 ML (CHARGE PER UNIT) SQ SCH ×4 (00:47→17:54)
[2021-09-13] MEDS: RT-ALBUTEROL/IPRATROPIUM 3 ML (DUONEB) VIAL INH SCH ×6 (02:10→21:27)
[2021-09-13 02:11] VITALS: BP 125/56
[2021-09-13] MEDS: NS IV 1000 ML 1,000 ML IV SCH (02:49)
[2021-09-13] MEDS: CEFEPIME INJECTION 1,000 MG in NS (IVPB) 50 ML IV SCH (03:58)
[2021-09-13 04:57] LABS: BASOPHILS % (AUTO) 0 % (0-10); EOSINOPHILS # (AUTO) 0.2 10^3/uL (0.0-0.3); EOSINOPHILS % (AUTO) 2 % (0-10); HEMATOCRIT 27 % (40-54); HEMOGLOBIN 8.5 g/dL (13.3-17.7); LYMPHOCYTES # (AUTO) 0.5 10^3/uL (1.0-4.0); LYMPHOCYTES % (AUTO) 4 % (12-44); MEAN CORPUSCULAR HEMOGLOBIN 26 pg (25-34); MEAN CORPUSCULAR HGB CONC 31 g/dL (32-36); MEAN CORPUSCULAR VOLUME 84 fL (80-99); MEAN PLATELET VOLUME 9.2 fL (9.0-12.2); MONOCYTES # (AUTO) 1.2 10^3/uL (0.0-1.0); MONOCYTES % (AUTO) 11 % (0-12); NEUTROPHILS # (AUTO) 8.6 10^3/uL (1.8-7.8); NEUTROPHILS % (AUTO) 82 % (42-75); PLATELET COUNT 440 10^3/uL (130-400); WHITE BLOOD COUNT 10.6 10^3/uL (4.3-11.0)
[2021-09-13 05:16] LABS: ALBUMIN 3.1 GM/DL (3.2-4.5); POTASSIUM 4.6 MMOL/L (3.6-5.0)
[2021-09-13 05:18] LABS: CALCIUM 8.7 MG/DL (8.5-10.1)
[2021-09-13 05:20] LABS: BILIRUBIN,TOTAL 0.5 MG/DL (0.1-1.0)
[2021-09-13 05:22] LABS: CREATININE SERUM 2.42 MG/DL (0.60-1.30)
[2021-09-13 05:25] LABS: MAGNESIUM 2.3 MG/DL (1.6-2.4)
[2021-09-13 05:56] LABS: ABG OXYGEN SATURATION 96 % (94-100); ABG PCO2 34 MMHG (35-45); ABG PH 7.35 (7.37-7.43); ABG PO2 80 MMHG (79-93); ABG TCO2 18.7 MMOL/L (21.0-31.0)
[2021-09-13 05:57] LABS: ALLENS TEST YES-POS; INSPIRED O2 40%; PATIENT TEMP 37.4; VENTILATOR NO
[2021-09-13] MEDS: hydrALAZINE (APRESOLINE) 25 MG TAB PO SCH ×3 (06:06→21:01)
[2021-09-13] MEDS: SUCRALFATE 1 GM (CARAFATE) TAB PO SCH ×4 (06:06→21:01)
[2021-09-13 06:40] VITALS: BP 144/61
--- NOTE | 2021-09-13 08:20 | Progress Note ---
Subjective Subjective Date Seen by Provider: Sep 13, 2021 Time Seen by Provider: 07:50 PT REPORTS THAT HE IS FEELING BETTER THAN YESTERDAY, HOWEVER THE NURSING STAFF REPORTS THAT WHEN HE IS OFF OF THE PRECEDEX, HE STARTS TO BECOME HUNGRY FOR AIR, ANXIOUS AND TELLING THE STAFF THAT HE WANTS TO , TO "JUST LET ME GO" MICHAEL STATES THAT HE KNOWS HE IS SICK, BUT WANTS TO GIVE IT ANOTHER DAY. HIS DPOA - JAGDEEP - WAS ABLE TO BE ON THE PHONE TODAY, AND REPORTS THAT IF THINGS DO NOT LOOK LIKE THEY ARE IMPROVING, HE WOULD BE GOOD WITH PURSUING COMFORT CARE IN THE HOSPITAL. Review of Systems General: No Chills, No Night Sweats; Fatigue, Malaise; No Appetite, No Other HEENT: No Head Aches, No Visual Changes, No Eye Pain, No Ear Pain, No Dysphasia, No Sinus Congestion, No Post Nasal Drip, No Sore Throat, No Other Pulmonary: Dyspnea; No Cough, No Pleuritic Chest Pain, No Other Cardiovascular: No: Chest Pain, Palpitations, Orthopnea, Paroxysmal Noc. Dyspnea, Edema, Lt Headedness, Other Gastrointestinal: Constipation, Other (bloating) Neurological: Weakness, Confusion (CHRONIC) All Other Systems Reviewed All Other Systems Reviewed: Yes Objective Exam Vital Signs Vital Signs Date Time Temp Pulse Resp B/P (MAP) Pulse Ox O2 Delivery O2 Flow Rate FiO2 09/13/21 07:00 102 09/13/21 07:00 98 14 139/55 95 NIV Bilevel 40.00 09/13/21 06:40 97 24 98 40.00 09/13/21 06:00 99 14 144/61 98 NIV Bilevel 40.00 09/13/21 05:00 100 20 159/68 94 NIV Bilevel 40.00 09/13/21 04:00 101 23 130/59 97 NIV Bilevel 40.00 09/13/21 04:00 96 NIV Bilevel 40 09/13/21 03:00 86 27 156/99 95 NIV Bilevel 40.00 09/13/21 02:30 NIV Bilevel 40.00 09/13/21 02:11 101 24 94 50.00 09/13/21 02:00 97 23 125/56 98 NIV Bilevel 50.00 09/13/21 01:00 100 09/13/21 01:00 99 18 125/58 98 NIV Bilevel 50.00 09/13/21 00:27 96 NIV Bilevel 50 09/13/21 00:00 36.8 09/13/21 00:00 98 14 122/52 97 NIV Bilevel 50.00 09/12/21 23:00 98 21 121/52 96 NIV Bilevel 50.00 09/12/21 22:00 98 15 135/61 96 NIV Bilevel 50.00 09/12/21 21:18 NIV Bilevel 50.00 09/12/21 21:15 98 27 96 50.00 09/12/21 21:00 92 16 117/54 98 NIV Bilevel 60.00 09/12/21 20:26 95 NIV Bilevel 60 09/12/21 20:00 36.6 09/12/21 20:00 92 13 137/61 97 NIV Bilevel 60.00 09/12/21 19:00 NIV Bilevel 60.00 09/12/21 19:00 95 14 113/53 96 NIV Bilevel 60.00 09/12/21 19:00 100 09/12/21 18:41 105 29 95 60.00 09/12/21 18:00 93 22 106/49 96 NIV Bilevel 60.00 09/12/21 17:00 94 16 100/46 96 NIV Bilevel 60.00 09/12/21 16:30 88 NIV Bilevel 60 09/12/21 16:00 96 17 115/58 96 NIV Bilevel 60.00 09/12/21 16:00 36.9 09/12/21 15:00 94 15 104/60 97 NIV Bilevel 60.00 09/12/21 14:57 94 26 98 80.00 09/12/21 14:00 104 26 118/59 98 NIV Bilevel 80.00 09/12/21 13:00 108 26 121/55 97 NIV Bilevel 80.00 09/12/21 12:51 117 09/12/21 12:38 NIV Bilevel 80.00 09/12/21 12:15 88 NIV Bilevel 90 09/12/21 12:00 114 29 129/62 94 NIV Bilevel 60.00 09/12/21 11:00 111 25 122/63 94 NIV Bilevel 60.00 09/12/21 11:00 37.1 110 93 60 09/12/21 10:57 110 28 99 90.00 09/12/21 10:00 110 23 136/65 97 NIV Bilevel 90.00 09/12/21 09:00 115 29 117/55 96 NIV Bilevel 90.00 I & O 09/13/21 07:00 Intake Total 1360 ml Output Total 3975 ml Balance -2615 ml General Appearance: WD/WN, Mild Distress Eyes: Bilateral Eye Normal Inspection, Bilateral Eye PERRL, Bilateral Eye EOMI HEENT: Pharynx Normal Neck: Full Range of Motion, Non Tender, Supple Respiratory: Chest Non Tender, Crackles (IN BASES, DIFFICULT TO AUSCULTATE DUE TO PT MAKING NOISE WITH EXHALE) Cardiovascular: Regular Rate, Rhythm, Normal Peripheral Pulses Gastrointestinal: Normal Bowel Sounds, Non Tender, Distended (SLIGHTLY IMPROVED), Other (tympanitic) Rectal: Deferred Back: Normal Inspection Extremity: Normal Capillary Refill, Normal Inspection, Normal Range of Motion, Non Tender, No Calf Tenderness, No Pedal Edema Neurologic/Psychiatric: Alert, Other (ORIENTED TO PERSON, PLACE, FLAT AFFECT) Skin: Normal Color, Warm/Dry Lymphatic: No Adenopathy Results Lab Laboratory Tests 09/12/21 11:14: Glucometer 177H 09/13/21 00:44: Glucometer 179H 09/13/21 04:44: White Blood Count 10.6, Red Blood Count 3.27L, Hemoglobin 8.5L, Hematocrit 27L, Mean Corpuscular Volume 84, Mean Corpuscular Hemoglobin 26, Mean Corpuscular Hemoglobin Concent 31L, Red Cell Distribution Width 14.1, Platelet Count 440H, Mean Platelet Volume 9.2, Immature Granulocyte % (Auto) 0, Neutrophils (%) (Auto) 82H, Lymphocytes (%) (Auto) 4L, Monocytes (%) (Auto) 11, Eosinophils (%) (Auto) 2, Basophils (%) (Auto) 0, Neutrophils # (Auto) 8.6H, Lymphocytes # (Auto) 0.5L, Monocytes # (Auto) 1.2H, Eosinophils # (Auto) 0.2, Basophils # (Auto) 0.0, Immature Granulocyte # (Auto) 0.0, Sodium Level 138, Potassium Level 4.6, Chloride Level 107, Carbon Dioxide Level 15L, Anion Gap 16H, Blood Urea Nitrogen 56H, Creatinine 2.42H, Estimat Glomerular Filtration Rate 27, BUN/Creatinine Ratio 23, Glucose Level 193H, Calcium Level 8.7, Corrected Calcium 9.4, Magnesium Level 2.3, Total Bilirubin 0.5, Aspartate Amino Transf (AST/SGOT) 42H, Alanine Aminotransferase (ALT/SGPT) 20, Alkaline Phosphatase 49, Total Protein 6.0L, Albumin 3.1L 09/13/21 05:45: Blood Gas Puncture Site LEFT RADIAL, Blood Gas Patient Temperature 37.4, Arter ial Blood pH 7.35L, Arterial Blood Partial Pressure CO2 34L, Arterial Blood Partial Pressure O2 80, Arterial Blood HCO3 18L, Arterial Blood Total CO2 18.7L, Arterial Blood Oxygen Saturation 96, Arterial Blood Base Excess -7.0L, Cruz Test YES-POS, Blood Gas Ventilator Setting NO, Blood Gas Inspired Oxygen 40% Assessment/Plan Assessment/Plan Admission Dx CHEST PAIN STEMI DYSPNEA CHRONIC HYPERTENSION ELEVATED TROPONIN PNEUMONIA DIABETES MELLITUS ESOPHAGEAL REFLUX VASCULAR DEMENTIA Assessment and Plan CHEST PAIN STEMI DYSPNEA CHRONIC HYPERTENSION ELEVATED TROPONIN PNEUMONIA RESPIRATORY FAILURE DIABETES MELLITUS ESOPHAGEAL REFLUX RENAL FAILURE ANEMIA VASCULAR DEMENTIA ABDOMINAL DISTENTION CONSTIPATION CHEST PAIN WITH DYSPNEA AND STEMI - MANAGED BY DR. GREY - SEE HIS PROCEDURE NOTE FROM HEART CATH ON ADMISSION - SMALL VESSEL DISEASE, AND DISEASE OF LAD. - MONITOR SYMPTOMS. - PT ON HYDRALAZINE CHRONIC HYPERTENSION - RESTARTED ANTIHYPERTENSIVE MEDICATIONS. RENAL FAILURE - WORSENING - CARDIOLOGY HAS DECREASED THE IV FLUIDS AND INCREASED LASIX DOSING -BUN/CREATININE INCREASE FROM 50 AND 2.38 TO 56 AND 2.42. - PT ON LASIX 80MG IV DAILY. ANEMIA - STABLE AT THIS TIME AT 8.5, PT GIVEN BLOOD 09/10/21. PNEUMONIA WITH RESPIRATORY FAILURE - DEFER TO EICU PULMONOLOGY. - PT ON CEFEPIME CONTINUE, MONITOR SERIAL CXR'S - SHOWING WORSENING FAILURE AND PNEUMONIA, PT IS DNR/DNI - PT'S BILLY GANNON WAS ON THE PHONE WITH THIS ASSISTANT COUNSEL TODAY- HE WOULD LIKE TO GIVE MICHAEL ANOTHER DAY OR SO, HE UNDERSTANDS THAT MICHAEL HAS BEEN DECLINING, THAT THE EICU AND CARDIOLOGY FEEL THAT THIS IS A VERY GRAVE SITUATION AND THAT IF THINGS DO NOT TURN AROUND FOR MICHAEL ( THEY HAVE NOT) THAT HE WOULD BE A CANDIDATE FOR HOSPICE/COMFORT CARE IN THE HOSPITAL. - PT HAS DECLINED THIS ASSISTANT COUNSEL AND THE NURSING STAFF FROM REACHING OUT TO HIS DTR. - WILL KEEP PT ON BIPAP CONTINOUSLY DIABETES MELLITUS - FSBS, SLIDING SCALE INSULIN ESOPHAGEAL REFLUX - CONTINUE WITH PPI THERAPY. VASCULAR DEMENTIA - SUPPORTIVE CARE ABDOMINAL DISTENTION WITH CONSTIPATION -PT HAS CONTINUOUS ABDOMINAL DISTENTION - NG TUBE PLACED WITH LARGE DARK COLORED FLUID OUTPUT Admission Dx CHEST PAIN STEMI DYSPNEA CHRONIC HYPERTENSION ELEVATED TROPONIN PNEUMONIA DIABETES MELLITUS ESOPHAGEAL REFLUX VASCULAR DEMENTIA Clinical Quality Measures Admission Status Admission Dx CHEST PAIN STEMI DYSPNEA CHRONIC HYPERTENSION ELEVATED TROPONIN PNEUMONIA DIABETES MELLITUS ESOPHAGEAL REFLUX VASCULAR DEMENTIA ROSANNE PAN MD Sep 13, 2021 08:20
[2021-09-13] MEDS: DexMEDEtomidine 250 ML DRIP 250 ML IV SCH (08:34)
[2021-09-13] MEDS: FUROSEMIDE 40 MG/4 ML INJ (LASIX) IVP SCH (08:35)
[2021-09-13] MEDS: SODIUM BICARBONATE 650 MG TABLET PO SCH ×3 (08:41→21:01)
[2021-09-13] MEDS: ISOSORBIDE MONONITRATE 30 MG (IMDUR) TAB PO SCH (08:41)
[2021-09-13] MEDS: CLOPIDOGREL 75 MG (PLAVIX) TABLET PO SCH (08:41)
[2021-09-13] MEDS: PANTOPRAZOLE 40 MG (PROTONIX) VIAL IV SCH (08:41)
[2021-09-13] MEDS: SIMETHICONE 80 MG (MYLICON) CHEW PO SCH ×4 (08:41→21:01)
[2021-09-13] MEDS: ASPIRIN E.C. 81 MG (ECOTRIN) TAB PO SCH (08:41)
--- NOTE | 2021-09-13 09:40 | Cardiology Progress Note ---
Progress Note-Cardiology Events since last exam Date Seen by Provider: Sep 13, 2021 Time Seen by Provider: 09:35 Events since last exam We are following him due to an acute anterior STEMI that was treated with 1 drug-eluting stent to the left anterior descending coronary artery and complicated by cardiomyopathy, acute systolic heart failure and cardiogenic shock that required dopamine infusion. He was sitting up in a bed on Vapotherm. The nurse has been changing him back and forth from Vapotherm to BiPAP. He remains on Precedex but he was conversant. He feels short of breath. He denies chest discomfort, palpitations, or syncope. He has mild bilateral ankle edema. Certain portions of this document may have been dictated utilizing voice recognition technology. Inherent to this technology, typographical and grammatical errors may exist. As much as I am diligent to identify and correct these mistakes, some errors may remain in the document. Vitals Last set of Vitals Signs Vital Signs 09/13/21 09/13/21 09/13/21 09/13/21 04:00 08:00 08:34 08:55 Temp 36.1 Pulse 98 Resp 20 B/P (MAP) 150/67 Pulse Ox 95 O2 Delivery Vapotherm O2 Flow Rate 30.00 50.00 FiO2 40 Labs Labs Laboratory Tests 09/13/21 04:44 Exam Vital Signs Vital Signs Date Time Temp Pulse Resp B/P (MAP) Pulse Ox O2 Delivery O2 Flow Rate FiO2 09/13/21 08:55 Vapotherm 30.00 50.00 09/13/21 08:34 150/67 09/13/21 08:00 98 20 95 09/13/21 08:00 36.1 09/13/21 04:00 40 Physical Exam General: Alert. No acute distress. He is obese. He is on nasal oxygen by Vapotherm. Eye: No xanthelasma. HENT: Normocephalic. Neck: Jugular venous pressure does not appear elevated. Respiratory: Lungs are clear to auscultation but decreased at the bases bilaterally. Respirations are non-labored. Breath sounds are equal. Symmetrical chest wall expansion. Cardiovascular: Normal rate. Regular rhythm. No murmur. No gallop. 1+ bilateral pretibial edema. Gastrointestinal: Soft. Normal bowel sounds. Skin: Warm. Dry. Neurologic: Alert and oriented to person and place but not time. Cranial nerves 3-11 grossly intact. Psychiatric: Cooperative. Appropriate mood & affect. Labs Laboratory Tests Test 09/12/21 11:14 09/13/21 00:44 09/13/21 04:44 09/13/21 05:45 Range/Units Glucometer 177 H 179 H 70-110 MG/DL White Blood Count 10.6 4.3-11.0 10^3/uL Red Blood Count 3.27 L 4.30-5.52 10^6/uL Hemoglobin 8.5 L 13.3-17.7 g/dL Hematocrit 27 L 40-54 % Mean Corpuscular Volume 84 80-99 fL Mean Corpuscular Hemoglobin 26 25-34 pg Mean Corpuscular Hemoglobin Concent 31 L 32-36 g/dL Red Cell Distribution Width 14.1 10.0-14.5 % Platelet Count 440 H 130-400 10^3/uL Mean Platelet Volume 9.2 9.0-12.2 fL Immature Granulocyte % (Auto) 0 % Neutrophils (%) (Auto) 82 H 42-75 % Lymphocytes (%) (Auto) 4 L 12-44 % Monocytes (%) (Auto) 11 0-12 % Eosinophils (%) (Auto) 2 0-10 % Basophils (%) (Auto) 0 0-10 % Neutrophils # (Auto) 8.6 H 1.8-7.8 10^3/uL Lymphocytes # (Auto) 0.5 L 1.0-4.0 10^3/uL Monocytes # (Auto) 1.2 H 0.0-1.0 10^3/uL Eosinophils # (Auto) 0.2 0.0-0.3 10^3/uL Basophils # (Auto) 0.0 0.0-0.1 10^3/uL Immature Granulocyte # (Auto) 0.0 0.0-0.1 10^3/uL Sodium Level 138 135-145 MMOL/L Potassium Level 4.6 3.6-5.0 MMOL/L Chloride Level 107 98-107 MMOL/L Carbon Dioxide Level 15 L 21-32 MMOL/L Anion Gap 16 H 5-14 MMOL/L Blood Urea Nitrogen 56 H 7-18 MG/DL Creatinine 2.42 H 0.60-1.30 MG/DL Estimat Glomerular Filtration Rate 27 BUN/Creatinine Ratio 23 Glucose Level 193 H 70-105 MG/DL Calcium Level 8.7 8.5-10.1 MG/DL Corrected Calcium 9.4 8.5-10.1 MG/DL Magnesium Level 2.3 1.6-2.4 MG/DL Total Bilirubin 0.5 0.1-1.0 MG/DL Aspartate Amino Transf (AST/SGOT) 42 H 5-34 U/L Alanine Aminotransferase (ALT/SGPT) 20 0-55 U/L Alkaline Phosphatase 49 40-136 U/L Total Protein 6.0 L 6.4-8.2 GM/DL Albumin 3.1 L 3.2-4.5 GM/DL Blood Gas Puncture Site LEFT RADIAL Blood Gas Patient Temperature 37.4 Arterial Blood pH 7.35 L 7.37-7.43 Arterial Blood Partial Pressure CO2 34 L 35-45 MMHG Arterial Blood Partial Pressure O2 80 79-93 MMHG Arterial Blood HCO3 18 L 23-27 MMOL/L Arterial Blood Total CO2 18.7 L 21.0-31.0 MMOL/L Arterial Blood Oxygen Saturation 96 94-100 % Arterial Blood Base Excess -7.0 L -2.5-2.5 MMOL/L Cruz Test YES-POS Blood Gas Ventilator Setting NO Blood Gas Inspired Oxygen 40% Diagnosis/Problems Diagnosis/Problems (1) ST elevation myocardial infarction (STEMI) of anterior wall, initial episode of care Assessment & Plan: This was treated with 1 drug-eluting stent to the proximal left anterior descending coronary artery. He is on aspirin, clopidogrel, beta- teofilo, long-acting nitrates and high-dose statin medication. The day following his procedure he had recurrent angina and had a second cardiac catheterization which showed the stent to be patent. He has not complained of any recurrent angina since then. His post procedure course has been complicated with ongoing respiratory failure likely due to acute heart failure and possibly pneumonia. (2) Acute HFrEF (heart failure with reduced ejection fraction) Assessment & Plan: He appears to have evidence of pulmonary congestion on his chest x-ray. He has been receiving intravenous fluids due to his renal insufficiency. However, he had a previously normal ejection fraction earlier this year that is now moderately impaired. I recommend we give him additional doses of diuretic and stop the intravenous fluids. We will continue the current guideline directed medical therapy.He appears to have evidence of pulmonary congestion on his chest x-ray. He has been receiving intravenous fluids due to his renal insufficiency. However, he had a previous low normal ejection fraction that is now moderately impaired. I will discontinue the intravenous fluid. He is ordered for daily furosemide. This may paradoxically help improve his renal function. The eICU ordered a chest x-ray for tomorrow morning. I have changed this to today. (3) Ischemic cardiomyopathy Assessment & Plan: He had an echocardiogram in May 2021 that showed a normal ejection fraction. Now his echocardiogram shows moderate left ventricular systolic dysfunction. Some of this may be due to stunning from the acute myocardial infarction. He is on metoprolol succinate, isosorbide mononitrate and hydralazine. He is not a good candidate for NOVA inhibitor, ARB or aldosterone antagonist due to his acute kidney injury. We may need to consider a LifeVest prior to discharge but he is currently DO NOT RESUSCITATE. (4) Cardiogenic shock Assessment & Plan: The dopamine has been discontinued. He has been intermittently receiving oral metoprolol. We will need to watch his blood pressures closely. I would avoid rapidly increasing his antihypertensive medication so as to help avoid iatrogenic hypotension. (5) Primary hypertension Assessment & Plan: Blood pressures have been intermittently elevated. He had been receiving amlodipine but due to the moderate left ventricular systolic dysfunction, this may not be the best choice for his hypertension. We will attempt to get him back on oral metoprolol succinate.. Continue long-acting nitrate and hydralazine. As above, I recommend avoiding rapid changes in his antihypertensive medication or he may develop recurrent hypotension. (6) Mixed hyperlipidemia Assessment & Plan: Continue high-dose statin medication in light of the acute myocardial infarction. (7) Acute kidney injury superimposed on chronic kidney disease Assessment & Plan: He has been receiving intravenous fluids but his renal function has not changed. I did review his prior records and his most recent renal function we have in the computer was from 2020 at which time he had stage IIIa chronic kidney disease. The acute kidney injury is likely multifactorial. Some of this could be due to renal venous hypertension from the acute heart failure. As above, I recommend we treat him with intravenous furosemide and stop the IV fluids and see how his renal function responds. Unfortunately, this is a poor prognostic indicator. However, this will often turn around over days to weeks. He does not currently appear to be in need of renal replacement therapy. (8) Acute on chronic respiratory failure with hypoxia and hypercapnia Assessment & Plan: Most likely multifactorial due to heart failure and possibly pneumonia. He continues to intermittently require BiPAP. BHAVYA RAMIREZ JR, MD Sep 13, 2021 09:40
--- NOTE | 2021-09-13 10:14 | Tele-ICU Progress Note ---
Subjective Date Seen by a Provider: Sep 13, 2021 Time Seen by a Provider: 10:13 Subjective/Events-last exam Patient remained up trended however his metabolic acidosis somewhat improved. We are able to wean his BiPAP settings currently he is on 30% FiO2. He is started on daily IV Lasix. His potassium is 4.6 today. Apparently a discussion will be made by the primary care physician with power of personal injury attorney tomorrow regar ding possible comfort care measures as his prognosis is poor. Review of Systems ROS PER RN Sepsis Event Evaluation Height, Weight, BMI Height: 5'.00" Weight: 212lbs. 9.0oz. 96.552568ac; 27.76 BMI Method:Stated Exam Exam Patient acknowledged, consented, and participated in this virtual visit which was conducted using real time audio/video Vital Signs Date Time Temp Pulse Resp B/P (MAP) Pulse Ox O2 Delivery O2 Flow Rate FiO2 09/13/21 10:00 101 19 155/61 90 Vapotherm 30.00 50.00 09/13/21 09:00 96 144/66 92 Vapotherm 30.00 50.00 09/13/21 08:55 Vapotherm 30.00 50.00 09/13/21 08:34 150/67 09/13/21 08:00 94 Vapotherm 30.00 50 09/13/21 08:00 98 20 143/64 95 NIV Bilevel 40.00 09/13/21 08:00 36.1 09/13/21 07:00 102 09/13/21 07:00 98 14 139/55 95 NIV Bilevel 40.00 09/13/21 06:40 97 24 98 40.00 09/13/21 06:00 99 14 144/61 98 NIV Bilevel 40.00 09/13/21 05:00 100 20 159/68 94 NIV Bilevel 40.00 09/13/21 04:00 101 23 130/59 97 NIV Bilevel 40.00 09/13/21 04:00 96 NIV Bilevel 40 09/13/21 03:00 86 27 156/99 95 NIV Bilevel 40.00 09/13/21 02:30 NIV Bilevel 40.00 09/13/21 02:11 101 24 94 50.00 09/13/21 02:00 97 23 125/56 98 NIV Bilevel 50.00 09/13/21 01:00 100 09/13/21 01:00 99 18 125/58 98 NIV Bilevel 50.00 09/13/21 00:27 96 NIV Bilevel 50 09/13/21 00:00 36.8 09/13/21 00:00 98 14 122/52 97 NIV Bilevel 50.00 09/12/21 23:00 98 21 121/52 96 NIV Bilevel 50.00 09/12/21 22:00 98 15 135/61 96 NIV Bilevel 50.00 09/12/21 21:18 NIV Bilevel 50.00 09/12/21 21:15 98 27 96 50.00 09/12/21 21:00 92 16 117/54 98 NIV Bilevel 60.00 09/12/21 20:26 95 NIV Bilevel 60 09/12/21 20:00 36.6 09/12/21 20:00 92 13 137/61 97 NIV Bilevel 60.00 09/12/21 19:00 NIV Bilevel 60.00 09/12/21 19:00 95 14 113/53 96 NIV Bilevel 60.00 09/12/21 19:00 100 09/12/21 18:41 105 29 95 60.00 09/12/21 18:00 93 22 106/49 96 NIV Bilevel 60.00 09/12/21 17:00 94 16 100/46 96 NIV Bilevel 60.00 09/12/21 16:30 88 NIV Bilevel 60 09/12/21 16:00 96 17 115/58 96 NIV Bilevel 60.00 09/12/21 16:00 36.9 09/12/21 15:00 94 15 104/60 97 NIV Bilevel 60.00 09/12/21 14:57 94 26 98 80.00 09/12/21 14:00 104 26 118/59 98 NIV Bilevel 80.00 09/12/21 13:00 108 26 121/55 97 NIV Bilevel 80.00 09/12/21 12:51 117 09/12/21 12:38 NIV Bilevel 80.00 09/12/21 12:15 88 NIV Bilevel 90 09/12/21 12:00 114 29 129/62 94 NIV Bilevel 60.00 09/12/21 11:00 111 25 122/63 94 NIV Bilevel 60.00 09/12/21 11:00 37.1 110 93 60 09/12/21 10:57 110 28 99 90.00 I & O 09/13/21 07:00 Intake Total 1360 ml Output Total 3975 ml Balance -2615 ml Height & Weight Height: 5'11.00" Weight: 212lbs. 9.0oz. 96.808643ga; 27.76 BMI Method:Stated General Appearance: WD/WN, Mild Distress HEENT: Pharynx Normal Neck: Full Range of Motion, Non Tender, Supple Respiratory: Chest Non Tender, Crackles (IN BASES, DIFFICULT TO AUSCULTATE DUE TO PT MAKING NOISE WITH EXHALE) Cardiovascular: Regular Rate, Rhythm, Normal Peripheral Pulses Capillary Refill: Less Than 3 Seconds Extremity: Normal Capillary Refill, Normal Inspection, Normal Range of Motion, Non Tender, No Calf Tenderness, No Pedal Edema Neurologic/Psychiatric: Alert, Other (ORIENTED TO PERSON, PLACE, FLAT AFFECT) Skin: Normal Color, Warm/Dry Lymphatic: No Adenopathy Results Lab Laboratory Tests 09/12/21 04:22 09/13/21 04:44 Assessment/Plan Assessment/Plan 1. STEMI status post PCI 2. Acute hypoxic respiratory failure secondary to pneumonia WHICH IS WORSENING. 3. Hypertension stable 4. Type 2 diabetes mellitus. 5. Acute kidney injury with metabolic acidosis Recommendations. 1. Continue iv lasix 2. STEMI management per cardiology service 3. Continue Protonix 4. will give nahco3 tabs via ngt 5. DVT prophylaxis and ulcer prophylaxis 6. Continue antibiotic therapy per primary team. 7. Monitor BUN and creatinine and management of Lasix per cardiology service. 8. Prognosis is grave. 9. Agree with comfort care Discussion with POA Critical Care: Critically Ill Patient Time spent with patient (mins): 20 SUKHDEV NAVA MD Sep 13, 2021 10:14
--- NOTE | 2021-09-13 10:25 | Diagnostic Imaging Report ---
EXAM: CHEST 1 VIEW, AP/PA ONLY INDICATION: Pneumonia. Congestive heart failure. COMPARISON: Chest radiograph 09/12/2021. FINDINGS: Cardiomegaly. Diffuse interstitial and airspace opacities are similar to the prior exam. No large pleural effusion or pneumothorax. Calcified aorta. NG tube tip and side-port in the stomach. IMPRESSION: Stable diffuse interstitial and airspace opacities in both lungs. Dictated by: Dictated on workstation # [id number]
[2021-09-13] MEDS: meTOproloL SUCCINATE 50 MG (TOPROL XL) TAB PO SCH (11:17)
[2021-09-13 14:57] VITALS: BP 185/81
[2021-09-13 18:29] VITALS: BP 160/63
[2021-09-13] MEDS: polyethylene glycoL POWDER 17 GM (MIRALAX) PACK PO SCH (21:01)
[2021-09-13] MEDS: ACETAMINOPHEN 325 MG TABLET PO PRN (21:01)
[2021-09-13 21:27] VITALS: BP 147/59
[2021-09-14] MEDS: inSUlin ASPART (NovoLOG) 1 UNIT/0.01 ML (CHARGE PER UNIT) SQ SCH ×4 (00:21→18:29)
[2021-09-14 02:14] VITALS: BP 136/54
[2021-09-14] MEDS: RT-ALBUTEROL/IPRATROPIUM 3 ML (DUONEB) VIAL INH SCH ×6 (02:14→21:20)
[2021-09-14 04:58] LABS: BASOPHILS # (AUTO) 0.1 10^3/uL (0.0-0.1); BASOPHILS % (AUTO) 1 % (0-10); EOSINOPHILS # (AUTO) 0.3 10^3/uL (0.0-0.3); EOSINOPHILS % (AUTO) 3 % (0-10); HEMATOCRIT 27 % (40-54); HEMOGLOBIN 8.5 g/dL (13.3-17.7); LYMPHOCYTES # (AUTO) 0.7 10^3/uL (1.0-4.0); LYMPHOCYTES % (AUTO) 8 % (12-44); MEAN CORPUSCULAR HEMOGLOBIN 26 pg (25-34); MEAN CORPUSCULAR HGB CONC 31 g/dL (32-36); MEAN CORPUSCULAR VOLUME 83 fL (80-99); MEAN PLATELET VOLUME 9.4 fL (9.0-12.2); MONOCYTES # (AUTO) 1.3 10^3/uL (0.0-1.0); MONOCYTES % (AUTO) 14 % (0-12); NEUTROPHILS # (AUTO) 6.5 10^3/uL (1.8-7.8); NEUTROPHILS % (AUTO) 73 % (42-75); PLATELET COUNT 456 10^3/uL (130-400); WHITE BLOOD COUNT 8.9 10^3/uL (4.3-11.0)
[2021-09-14 05:18] LABS: ALBUMIN 3.1 GM/DL (3.2-4.5); POTASSIUM 4.2 MMOL/L (3.6-5.0)
[2021-09-14 05:22] LABS: BILIRUBIN,TOTAL 0.5 MG/DL (0.1-1.0)
[2021-09-14 05:24] LABS: CREATININE SERUM 1.91 MG/DL (0.60-1.30)
[2021-09-14 05:27] LABS: MAGNESIUM 2.3 MG/DL (1.6-2.4)
[2021-09-14] MEDS: SUCRALFATE 1 GM (CARAFATE) TAB PO SCH ×4 (05:38→20:25)
[2021-09-14] MEDS: hydrALAZINE (APRESOLINE) 25 MG TAB PO SCH ×3 (05:38→21:54)
[2021-09-14 07:53] VITALS: BP 128/47
--- NOTE | 2021-09-14 08:21 | Tele-ICU Progress Note ---
Subjective Date Seen by a Provider: Sep 14, 2021 Time Seen by a Provider: 08:21 Subjective/Events-last exam Patient remained now BiPAP ventilation. Reviewed with RT and FiO2 is being decreased to 25%. I have discussed with the APPEALS ANALYST Ines to try on high flow nasal cannula to see whether he can tolerate. Blood pressure is stable. He is currently on a Precedex at 0.6 mcg.Chest x-ray showing moderate improvement in the congestive changes. Review of Systems ROS PER RN Sepsis Event Evaluation Height, Weight, BMI Height: 5'11.00" Weight: 212lbs. 9.0oz. 96.089032el; 27.76 BMI Method:Stated Exam Exam Patient acknowledged, consented, and participated in this virtual visit which was conducted using real time audio/video Vital Signs Date Time Temp Pulse Resp B/P (MAP) Pulse Ox O2 Delivery O2 Flow Rate FiO2 09/14/21 07:46 37.0 09/14/21 07:00 70 10 128/47 96 NIV Bilevel 30.00 09/14/21 07:00 73 09/14/21 06:00 95 21 153/62 98 NIV Bilevel 30.00 09/14/21 05:44 NIV Bilevel 30.00 09/14/21 05:00 77 21 133/48 98 NIV Bilevel 40.00 09/14/21 04:00 97 NIV Bilevel 40 09/14/21 04:00 96 13 146/58 99 NIV Bilevel 40.00 09/14/21 03:00 94 17 139/54 98 NIV Bilevel 40.00 09/14/21 02:14 93 20 98 40.00 09/14/21 02:00 93 20 135/51 98 NIV Bilevel 40.00 09/14/21 01:00 98 19 135/53 99 NIV Bilevel 40.00 09/14/21 01:00 100 09/14/21 00:00 96 24 141/54 98 NIV Bilevel 40.00 09/14/21 00:00 37.4 09/13/21 23:59 97 NIV Bilevel 40 09/13/21 23:00 98 16 134/51 98 NIV Bilevel 40.00 09/13/21 22:00 99 16 133/49 98 NIV Bilevel 40.00 09/13/21 21:27 98 19 98 40.00 09/13/21 21:00 95 20 134/50 97 NIV Bilevel 40.00 09/13/21 20:00 105 13 151/59 99 NIV Bilevel 40.00 09/13/21 20:00 98 NIV Bilevel 40 09/13/21 19:23 37.6 112 22 157/64 98 NIV Bilevel 40.00 09/13/21 19:00 103 09/13/21 18:29 97 22 98 40.00 09/13/21 17:00 100 21 141/63 96 Vapotherm 30.00 50.00 09/13/21 16:00 102 19 155/61 96 Vapotherm 30.00 50.00 09/13/21 15:05 94 Vapotherm 30.00 50 09/13/21 15:00 105 20 155/65 96 Vapotherm 30.00 50.00 09/13/21 14:57 105 28 96 40.00 09/13/21 14:00 105 18 173/81 93 Vapotherm 30.00 50.00 09/13/21 13:00 103 17 161/61 92 Vapotherm 30.00 50.00 09/13/21 12:34 103 09/13/21 12:00 93 Vapotherm 30.00 50 09/13/21 12:00 105 18 158/62 91 Vapotherm 30.00 50.00 09/13/21 11:45 36.6 09/13/21 11:00 98 15 150/57 92 Vapotherm 30.00 50.00 09/13/21 10:49 92 Vapotherm 30.00 50 09/13/21 10:00 101 19 155/61 90 Vapotherm 30.00 50.00 09/13/21 09:00 96 144/66 92 Vapotherm 30.00 50.00 09/13/21 08:55 Vapotherm 30.00 50.00 09/13/21 08:34 150/67 I & O 09/14/21 07:00 Intake Total 0 ml Output Total 4300 ml Balance -4300 ml Height & Weight Height: 5'11.00" Weight: 212lbs. 9.0oz. 96.953987gs; 27.76 BMI Method:Stated General Appearance: WD/WN, Mild Distress HEENT: Pharynx Normal Neck: Full Range of Motion, Non Tender, Supple Respiratory: Chest Non Tender, Crackles (IN BASES, DIFFICULT TO AUSCULTATE DUE TO PT MAKING NOISE WITH EXHALE) Cardiovascular: Regular Rate, Rhythm, Normal Peripheral Pulses Capillary Refill: Less Than 3 Seconds Extremity: Normal Capillary Refill, Normal Inspection, Normal Range of Motion, Non Tender, No Calf Tenderness, No Pedal Edema Neurologic/Psychiatric: Alert, Other (ORIENTED TO PERSON, PLACE, FLAT AFFECT) Skin: Normal Color, Warm/Dry Lymphatic: No Adenopathy Other comments PE PER RN Results Lab Laboratory Tests 09/13/21 04:44 09/14/21 04:27 Assessment/Plan Assessment/Plan 1. STEMI status post PCI 2. Acute hypoxic respiratory failure secondary to pneumonia and chf improving. 3. Hypertension stable 4. Type 2 diabetes mellitus. 5. Acute kidney injury with metabolic acidosis improving Recommendations. 1. Continue iv lasix 2. STEMI management per cardiology service 3. Continue Protonix 4. will continue nahco3 tabs via ngt 5. DVT prophylaxis and ulcer prophylaxis 6. Continue antibiotic therapy per primary team. 7. Monitor BUN and creatinine and management of Lasix per cardiology service. 8. Prognosis is still critical Critical Care: Critically Ill Patient SUKHDEV NAVA MD Sep 14, 2021 08:21
--- NOTE | 2021-09-14 08:38 | Progress Note ---
Subjective Subjective Date Seen by Provider: Sep 14, 2021 Time Seen by Provider: 08:25 PT REPORTS THAT HE IS FEELING BETTER TODAY. STAFF REPORTS PT HAVING AN ELEVATED TEMPERATURE OVERNIGHT, BUT THERE IS NO DOCUMENTATION IN THE VITALS FOR A FEVER. PT IS DOWN 5.6 KG (12.3#). PT IS OTHERWISE NOT CONVERSANT TODAY. Review of Systems General: No Chills, No Night Sweats; Fatigue, Malaise; No Appetite, No Other HEENT: No Head Aches, No Visual Changes, No Eye Pain, No Ear Pain, No Dysphasia, No Sinus Congestion, No Post Nasal Drip, No Sore Throat, No Other Pulmonary: Dyspnea; No Cough, No Pleuritic Chest Pain, No Other Cardiovascular: Edema; No: Chest Pain, Palpitations, Orthopnea, Paroxysmal Noc. Dyspnea, Lt Headedness, Other Gastrointestinal: Constipation, Other (bloating); No: Nausea, Vomiting, Abdominal Pain Neurological: Weakness, Confusion (CHRONIC) All Other Systems Reviewed All Other Systems Reviewed: Yes Objective Exam Vital Signs Vital Signs Date Time Temp Pulse Resp B/P (MAP) Pulse Ox O2 Delivery O2 Flow Rate FiO2 09/14/21 08:32 NIV Bilevel 25.00 09/14/21 08:00 95 13 153/60 97 NIV Bilevel 30.00 09/14/21 07:46 37.0 09/14/21 07:00 70 10 128/47 96 NIV Bilevel 30.00 09/14/21 07:00 73 09/14/21 06:00 95 21 153/62 98 NIV Bilevel 30.00 09/14/21 05:44 NIV Bilevel 30.00 09/14/21 05:00 77 21 133/48 98 NIV Bilevel 40.00 09/14/21 04:00 97 NIV Bilevel 40 09/14/21 04:00 96 13 146/58 99 NIV Bilevel 40.00 09/14/21 03:00 94 17 139/54 98 NIV Bilevel 40.00 09/14/21 02:14 93 20 98 40.00 09/14/21 02:00 93 20 135/51 98 NIV Bilevel 40.00 09/14/21 01:00 98 19 135/53 99 NIV Bilevel 40.00 09/14/21 01:00 100 09/14/21 00:00 96 24 141/54 98 NIV Bilevel 40.00 09/14/21 00:00 37.4 09/13/21 23:59 97 NIV Bilevel 40 09/13/21 23:00 98 16 134/51 98 NIV Bilevel 40.00 09/13/21 22:00 99 16 133/49 98 NIV Bilevel 40.00 09/13/21 21:27 98 19 98 40.00 09/13/21 21:00 95 20 134/50 97 NIV Bilevel 40.00 09/13/21 20:00 105 13 151/59 99 NIV Bilevel 40.00 09/13/21 20:00 98 NIV Bilevel 40 09/13/21 19:23 37.6 112 22 157/64 98 NIV Bilevel 40.00 09/13/21 19:00 103 09/13/21 18:29 97 22 98 40.00 09/13/21 17:00 100 21 141/63 96 Vapotherm 30.00 50.00 09/13/21 16:00 102 19 155/61 96 Vapotherm 30.00 50.00 09/13/21 15:05 94 Vapotherm 30.00 50 09/13/21 15:00 105 20 155/65 96 Vapotherm 30.00 50.00 09/13/21 14:57 105 28 96 40.00 09/13/21 14:00 105 18 173/81 93 Vapotherm 30.00 50.00 09/13/21 13:00 103 17 161/61 92 Vapotherm 30.00 50.00 09/13/21 12:34 103 09/13/21 12:00 93 Vapotherm 30.00 50 09/13/21 12:00 105 18 158/62 91 Vapotherm 30.00 50.00 09/13/21 11:45 36.6 09/13/21 11:00 98 15 150/57 92 Vapotherm 30.00 50.00 09/13/21 10:49 92 Vapotherm 30.00 50 09/13/21 10:00 101 19 155/61 90 Vapotherm 30.00 50.00 09/13/21 09:00 96 144/66 92 Vapotherm 30.00 50.00 09/13/21 08:55 Vapotherm 30.00 50.00 I & O 09/14/21 07:00 Intake Total 0 ml Output Total 4300 ml Balance -4300 ml General Appearance: WD/WN, Mild Distress (MOANING WITH EACH BREATH) Eyes: Bilateral Eye Normal Inspection, Bilateral Eye PERRL, Bilateral Eye EOMI HEENT: Pharynx Normal Neck: Full Range of Motion, Non Tender, Supple Respiratory: Chest Non Tender, Other (DIFFICULT TO AUSCULTATE, PT MAKING A MOANING NOISE WITH EVERY BREATH, SLIGHT CRACKLES IN BASES) Cardiovascular: Normal Peripheral Pulses, Tachycardia Gastrointestinal: Normal Bowel Sounds, Non Tender, Distended (BUT SOFTER THAN YESTERDAY), Other (TYMPANITIC WITH BROWN/ALMONTE OUTPUT FROM NG TUBE) Rectal: Deferred Back: Normal Inspection Extremity: Normal Capillary Refill, Normal Inspection, Normal Range of Motion, Non Tender, No Calf Tenderness Neurologic/Psychiatric: Alert, Other (ANSWERS QUESTIONS WITH SHORT RESPONSE) Skin: Normal Color, Warm/Dry Lymphatic: No Adenopathy Results Lab Laboratory Tests 09/13/21 11:24: Glucometer 171H 09/13/21 17:40: Glucometer 172H 09/14/21 00:20: Glucometer 172H 09/14/21 04:27: White Blood Count 8.9, Red Blood Count 3.29L, Hemoglobin 8.5L, Hematocrit 27L, Mean Corpuscular Volume 83, Mean Corpuscular Hemoglobin 26, Mean Corpuscular Hemoglobin Concent 31L, Red Cell Distribution Width 14.1, Platelet Count 456H, Mean Platelet Volume 9.4, Immature Granulocyte % (Auto) 1, Neutrophils (%) (Auto) 73, Lymphocytes (%) (Auto) 8L, Monocytes (%) (Auto) 14H, Eosinophils (%) (Auto) 3, Basophils (%) (Auto) 1, Neutrophils # (Auto) 6.5, Lymphocytes # (Auto) 0.7L, Monocytes # (Auto) 1.3H, Eosinophils # (Auto) 0.3, Basophils # (Auto) 0.1, Immature Granulocyte # (Auto) 0.0, Sodium Level 142, Potassium Level 4.2, Chloride Level 108H, Carbon Dioxide Level 19L, Anion Gap 15H, Blood Urea Nitrogen 49H, Creatinine 1.91H, Estimat Glomerular Filtration Rate 35, BUN/Creatinine Ratio 26, Glucose Level 198H, Calcium Level 9.0, Corrected Calcium 9.7, Magnesium Level 2.3, Total Bilirubin 0.5, Aspartate Amino Transf (AST/SGOT) 28, Alanine Aminotransferase (ALT/SGPT) 18, Alkaline Phosphatase 52, B-Type Natriuretic Peptide 1667.4H, Total Protein 6.0L, Albumin 3.1L Assessment/Plan Assessment/Plan Admission Dx CHEST PAIN STEMI DYSPNEA CHRONIC HYPERTENSION ELEVATED TROPONIN PNEUMONIA DIABETES MELLITUS ESOPHAGEAL REFLUX VASCULAR DEMENTIA Assessment and Plan CHEST PAIN STEMI DYSPNEA CHRONIC HYPERTENSION ELEVATED TROPONIN PNEUMONIA RESPIRATORY FAILURE DIABETES MELLITUS ESOPHAGEAL REFLUX RENAL FAILURE ANEMIA VASCULAR DEMENTIA ABDOMINAL DISTENTION CONSTIPATION ANXIETY CHEST PAIN WITH DYSPNEA AND STEMI - MANAGED BY DR. GREY - SEE HIS PROCEDURE NOTE FROM HEART CATH ON ADMISSION - SMALL VESSEL DISEASE, AND DISEASE OF LAD. - MONITOR SYMPTOMS. - PT ON HYDRALAZINE CHRONIC HYPERTENSION - RESTARTED ANTIHYPERTENSIVE MEDICATIONS. RENAL FAILURE - SLIGHTLY IMPROVED, CONTINUE TO MONITOR RENAL FUNCTION - URINE OUTPUT [id number] OVER THE PRIOR 24 HOURS., WT DOWN 5KG (12#) ANEMIA - STABLE AT THIS TIME AT 8.5, PT GIVEN BLOOD 09/10/21. PNEUMONIA WITH RESPIRATORY FAILURE - DEFER TO EICU PULMONOLOGY. - PT ON CEFEPIME CONTINUE, MONITOR SERIAL CXR'S - SHOWING WORSENING FAILURE AND PNEUMONIA, PT IS DNR/DNI - WAITING ON CXR - PT HAS DECLINED THIS RECORD PRODUCER AND THE NURSING STAFF FROM REACHING OUT TO HIS DTR. - WILL KEEP PT ON BIPAP CONTINOUSLY ANXIETY - PRN ATIVAN ORDERED IN AN ATTEMPT TO DECREASE PRECEDEX DIABETES MELLITUS - FSBS, SLIDING SCALE INSULIN ESOPHAGEAL REFLUX - CONTINUE WITH PPI THERAPY. VASCULAR DEMENTIA - SUPPORTIVE CARE ABDOMINAL DISTENTION WITH CONSTIPATION -PT HAS CONTINUOUS ABDOMINAL DISTENTION - NG TUBE PLACED WITH LARGE DARK COLORED FLUID OUTPUT - KUB ORDERED TODAY PT HAS BEEN WITHOUT FOOD FOR SEVERAL DAYS, WILL NEED TO FEED PT OR CONSIDER TPN OR TUBE FEEDS. Admission Dx CHEST PAIN STEMI DYSPNEA CHRONIC HYPERTENSION ELEVATED TROPONIN PNEUMONIA DIABETES MELLITUS ESOPHAGEAL REFLUX VASCULAR DEMENTIA Clinical Quality Measures Admission Status Admission Dx CHEST PAIN STEMI DYSPNEA CHRONIC HYPERTENSION ELEVATED TROPONIN PNEUMONIA DIABETES MELLITUS ESOPHAGEAL REFLUX VASCULAR DEMENTIA ROSANNE PAN MD Sep 14, 2021 08:38
[2021-09-14] MEDS: FUROSEMIDE 40 MG/4 ML INJ (LASIX) IVP SCH (08:41)
[2021-09-14] MEDS: SODIUM BICARBONATE 650 MG TABLET PO SCH ×3 (08:42→20:25)
[2021-09-14] MEDS: ISOSORBIDE MONONITRATE 30 MG (IMDUR) TAB PO SCH (08:42)
[2021-09-14] MEDS: SIMETHICONE 80 MG (MYLICON) CHEW PO SCH ×4 (08:42→20:25)
[2021-09-14] MEDS: PANTOPRAZOLE 40 MG (PROTONIX) VIAL IV SCH (08:42)
[2021-09-14] MEDS: CLOPIDOGREL 75 MG (PLAVIX) TABLET PO SCH (08:42)
[2021-09-14] MEDS: ASPIRIN E.C. 81 MG (ECOTRIN) TAB PO SCH (08:42)
[2021-09-14] MEDS: meTOproloL SUCCINATE 50 MG (TOPROL XL) TAB PO SCH (08:43)
[2021-09-14] MEDS ORDERED: LORazepam 0.5 MG (ATIVAN) TABLET PO PRN (08:45)
--- NOTE | 2021-09-14 09:05 | Diagnostic Imaging Report ---
INDICATION: Fluid overload. TECHNIQUE: 2 portable supine views of the abdomen 8:45 AM CORRELATION STUDY: 09/12/2021 FINDINGS: Gastric tube tip in the lateral body of the stomach. There is gas distention of the colon. A few gas-filled loops of small bowel are present. Mild stool in the proximal colon. No large fecal impaction or evidence for underlying obstructive feature. Prominent aortoiliac vascular calcification. IMPRESSION: 1. Gas-filled loops of bowel currently have a nonobstructed appearance. Mild stool retention. Dictated by: Dictated on workstation # [id number]
--- NOTE | 2021-09-14 09:11 | Diagnostic Imaging Report ---
INDICATION: Heart failure. TECHNIQUE: Single view chest 8:48 AM. CORRELATION STUDY: 09/13/2021 FINDINGS: Gastric tube tip likely in the region of the body of the stomach but incompletely imaged. Heart size and mediastinum are enlarged. Pulmonary vascular congestion and perihilar edema. Extensive bilateral pulmonary opacities do persist but are partially improved and cleared. Small effusions. IMPRESSION: 1. Findings of congestive failure does persist but overall appearing slightly improved. Some improvement in aeration to the lung mir. Underlying edema versus infiltrate does remain. Dictated by: Dictated on workstation # [id number]
--- NOTE | 2021-09-14 09:29 | Cardiology Progress Note ---
Progress Note-Cardiology Events since last exam Date Seen by Provider: Sep 14, 2021 Time Seen by Provider: 09:23 Events since last exam We are following him due to anterior STEMI which was complicated by cardiogenic shock and acute heart failure with reduced ejection fraction. This morning he was back on BiPAP. When I saw him on 09/13, he was on high flow nasal cannula oxygen. He remains on Precedex. He denied chest pain or shortness of breath on the BiPAP but I could not get much other history from him due to the sedation. Certain portions of this document may have been dictated utilizing voice recog nition technology. Inherent to this technology, typographical and grammatical errors may exist. As much as I am diligent to identify and correct these mistakes, some errors may remain in the document. Vitals Last set of Vitals Signs Vital Signs 09/14/21 09/14/21 09/14/21 04:00 07:46 09:00 Temp 37.0 Pulse 99 Resp 28 B/P (MAP) 161/66 Pulse Ox 96 O2 Delivery NIV Bilevel O2 Flow Rate 25.00 FiO2 40 Labs Labs Laboratory Tests 09/14/21 04:27 Exam Vital Signs Vital Signs Date Time Temp Pulse Resp B/P (MAP) Pulse Ox O2 Delivery O2 Flow Rate FiO2 09/14/21 09:00 99 28 161/66 96 NIV Bilevel 25.00 09/14/21 07:46 37.0 09/14/21 04:00 40 Physical Exam General: Sedated but opens eyes to voice but not answering many questions. He is on BiPAP. Eye: No xanthelasma. HENT: Normocephalic. Neck: Jugular venous pressure does not appear elevated. Respiratory: Lungs have coarse upper airway sounds due to the BiPAP. Breath sounds are equal. Symmetrical chest wall expansion. Cardiovascular: Normal rate. Regular rhythm. Distant S1/S2. No murmur. No gallop. No edema. Gastrointestinal: Soft. Normal bowel sounds. Skin: Warm. Dry. Neurologic: Sedated and answering only a few questions. Cranial nerves 3-11 grossly intact. Psychiatric: Sedated on Precedex but cooperative. Labs Laboratory Tests Test 09/13/21 11:24 09/13/21 17:40 09/14/21 00:20 09/14/21 04:27 Range/Units Glucometer 171 H 172 H 172 H 70-110 MG/DL White Blood Count 8.9 4.3-11.0 10^3/uL Red Blood Count 3.29 L 4.30-5.52 10^6/uL Hemoglobin 8.5 L 13.3-17.7 g/dL Hematocrit 27 L 40-54 % Mean Corpuscular Volume 83 80-99 fL Mean Corpuscular Hemoglobin 26 25-34 pg Mean Corpuscular Hemoglobin Concent 31 L 32-36 g/dL Red Cell Distribution Width 14.1 10.0-14.5 % Platelet Count 456 H 130-400 10^3/uL Mean Platelet Volume 9.4 9.0-12.2 fL Immature Granulocyte % (Auto) 1 % Neutrophils (%) (Auto) 73 42-75 % Lymphocytes (%) (Auto) 8 L 12-44 % Monocytes (%) (Auto) 14 H 0-12 % Eosinophils (%) (Auto) 3 0-10 % Basophils (%) (Auto) 1 0-10 % Neutrophils # (Auto) 6.5 1.8-7.8 10^3/uL Lymphocytes # (Auto) 0.7 L 1.0-4.0 10^3/uL Monocytes # (Auto) 1.3 H 0.0-1.0 10^3/uL Eosinophils # (Auto) 0.3 0.0-0.3 10^3/uL Basophils # (Auto) 0.1 0.0-0.1 10^3/uL Immature Granulocyte # (Auto) 0.0 0.0-0.1 10^3/uL Sodium Level 142 135-145 MMOL/L Potassium Level 4.2 3.6-5.0 MMOL/L Chloride Level 108 H 98-107 MMOL/L Carbon Dioxide Level 19 L 21-32 MMOL/L Anion Gap 15 H 5-14 MMOL/L Blood Urea Nitrogen 49 H 7-18 MG/DL Creatinine 1.91 H 0.60-1.30 MG/DL Estimat Glomerular Filtration Rate 35 BUN/Creatinine Ratio 26 Glucose Level 198 H 70-105 MG/DL Calcium Level 9.0 8.5-10.1 MG/DL Corrected Calcium 9.7 8.5-10.1 MG/DL Magnesium Level 2.3 1.6-2.4 MG/DL Total Bilirubin 0.5 0.1-1.0 MG/DL Aspartate Amino Transf (AST/SGOT) 28 5-34 U/L Alanine Aminotransferase (ALT/SGPT) 18 0-55 U/L Alkaline Phosphatase 52 40-136 U/L B-Type Natriuretic Peptide 1667.4 H <100.0 PG/ML Total Protein 6.0 L 6.4-8.2 GM/DL Albumin 3.1 L 3.2-4.5 GM/DL Diagnosis/Problems Diagnosis/Problems (1) ST elevation myocardial infarction (STEMI) of anterior wall, initial episode of care Assessment & Plan: This was treated with 1 drug-eluting stent to the proximal left anterior descending coronary artery. He is on aspirin, clopidogrel, beta-b locker, long-acting nitrates and high-dose statin medication. The day following his procedure he had recurrent angina and had a second cardiac catheterization which showed the stent to be patent. He has not complained of any recurrent angina since then. His post procedure course has been complicated with ongoing respiratory failure likely due to acute heart failure and possibly pneumonia. (2) Acute HFrEF (heart failure with reduced ejection fraction) Assessment & Plan: He appears to have evidence of pulmonary congestion on his chest x-ray. He had been receiving intravenous fluids due to his renal insufficiency which I stopped on 09/13. He had a previously normal ejection fraction earlier this year that is now moderately impaired following the myocardial infarction. I recommend we continue intravenous furosemide for the time being. His renal function is actually now improving.. His chest x-ray is also improving but he is still requiring BiPAP or high flow oxygen. We will continue the current guideline directed medical therapy. He is not a candidate for NOVA, ARB or aldosterone antagonist due to the poor renal function. If his renal function continues to improve, then we may be able to consider starting 1 of these medications. (3) Ischemic cardiomyopathy Assessment & Plan: He had an echocardiogram in May 2021 that showed a normal ejection fraction. Now his echocardiogram shows moderate left ventricular systolic dysfunction. Some of this may be due to stunning from the acute myocardial infarction. He is on metoprolol succinate, isosorbide mononitrate and hydralazine. He is not a good candidate for NOVA inhibitor, ARB or aldosterone antagonist due to his acute kidney injury. We may need to consider a LifeVest prior to discharge but he is currently DO NOT RESUSCITATE. (4) Cardiogenic shock Assessment & Plan: The dopamine was discontinued around 09/12. His blood pressures are starting to become elevated. I will increase his dose of metoprolol which I had actually decreased on 09/13 due to low blood pressure. I would avoid rapidly increasing his antihypertensive medication so as to help avoid iatrogenic hypotension. (5) Primary hypertension Assessment & Plan: Blood pressures have been intermittently elevated. He had been receiving amlodipine but due to the moderate left ventricular systolic dysfunction, this may not be the best choice for his hypertension. We will attempt to get him back on oral metoprolol succinate.. Continue long-acting nitrate and hydralazine. As above, I recommend avoiding rapid changes in his antihypertensive medication or he may develop recurrent hypotension. (6) Mixed hyperlipidemia Assessment & Plan: Continue high-dose statin medication in light of the acute myocardial infarction. (7) Acute kidney injury superimposed on chronic kidney disease Assessment & Plan: His renal function now appears to be improving. I did review his prior records and his most recent renal function we have in the computer was from 2019 at which time he had stage IIIa chronic kidney disease. The acute kidney injury is likely multifactorial. Some of this could be due to renal venous hypertension from the acute heart failure as well as ATN from shock. However, this will often turn around over days to weeks. He does not currently appear to be in need of renal replacement therapy. (8) Acute on chronic respiratory failure with hypoxia and hypercapnia Assessment & Plan: Most likely multifactorial due to heart failure and possibly pneumonia. He continues to intermittently require BiPAP. BHAVYA RAMIREZ JR, MD Sep 14, 2021 09:29
[2021-09-14] MEDS ORDERED: meTOproloL SUCCINATE 50 MG (TOPROL XL) TAB PO ONE (09:30)
[2021-09-14] MEDS: ACETAMINOPHEN 325 MG TABLET PO PRN (15:59)
[2021-09-14] MEDS: LABETALOL HCL 20 MG/4 ML VIAL IV PRN ×2 (15:59→20:37)
[2021-09-14] MEDS ORDERED: FLUCONAZOLE 200 MG/100 ML 100 ML IV ONE (16:15)
[2021-09-14 16:18] LABS: BILIRUBIN,URINE NEGATIVE (NEGATIVE); CLARITY,URINE CLEAR; COLOR,URINE YELLOW; GLUCOSE, URINE (UA) NEGATIVE (NEGATIVE); KETONES,URINE 1+ (NEGATIVE); LEUKOCYTE ESTERASE ,URINE 2+ (NEGATIVE); NITRITE,URINE NEGATIVE (NEGATIVE); PH,URINE 5.5 (5-9); PROTEIN,URINE 1+ (NEGATIVE)
[2021-09-14 16:25] LABS: BACTERIA,URINE TRACE /HPF; HYALINE CASTS, URINE RARE /LPF; RBC,URINE RARE /HPF; WBC,URINE 25-50 /HPF
[2021-09-14] MEDS: polyethylene glycoL POWDER 17 GM (MIRALAX) PACK PO SCH (20:26)
[2021-09-15] MEDS: LABETALOL HCL 20 MG/4 ML VIAL IV PRN (00:34)
[2021-09-15] MEDS: inSUlin ASPART (NovoLOG) 1 UNIT/0.01 ML (CHARGE PER UNIT) SQ SCH ×5 (00:35→23:03)
[2021-09-15] MEDS: RT-ALBUTEROL/IPRATROPIUM 3 ML (DUONEB) VIAL INH SCH ×6 (01:05→21:50)
[2021-09-15] MEDS: DexMEDEtomidine 250 ML DRIP 250 ML IV SCH (02:20)
[2021-09-15 04:33] LABS: BASOPHILS # (AUTO) 0.1 10^3/uL (0.0-0.1); BASOPHILS % (AUTO) 1 % (0-10); EOSINOPHILS # (AUTO) 0.2 10^3/uL (0.0-0.3); EOSINOPHILS % (AUTO) 2 % (0-10); HEMATOCRIT 31 % (40-54); HEMOGLOBIN 9.5 g/dL (13.3-17.7); LYMPHOCYTES % (AUTO) 9 % (12-44); MEAN CORPUSCULAR HEMOGLOBIN 26 pg (25-34); MEAN CORPUSCULAR HGB CONC 31 g/dL (32-36); MEAN CORPUSCULAR VOLUME 83 fL (80-99); MEAN PLATELET VOLUME 9.4 fL (9.0-12.2); MONOCYTES # (AUTO) 1.5 10^3/uL (0.0-1.0); MONOCYTES % (AUTO) 14 % (0-12); NEUTROPHILS % (AUTO) 74 % (42-75); PLATELET COUNT 544 10^3/uL (130-400); WHITE BLOOD COUNT 10.8 10^3/uL (4.3-11.0)
[2021-09-15 04:50] LABS: ALBUMIN 3.3 GM/DL (3.2-4.5)
[2021-09-15 04:52] LABS: CALCIUM 9.2 MG/DL (8.5-10.1)
[2021-09-15 04:53] LABS: TOTAL PROTEIN 6.4 GM/DL (6.4-8.2)
[2021-09-15 04:55] LABS: BILIRUBIN,TOTAL 0.6 MG/DL (0.1-1.0)
[2021-09-15 04:57] LABS: CREATININE SERUM 1.71 MG/DL (0.60-1.30)
[2021-09-15] MEDS: SUCRALFATE 1 GM (CARAFATE) TAB PO SCH ×4 (05:31→20:36)
[2021-09-15] MEDS: hydrALAZINE (APRESOLINE) 25 MG TAB PO SCH ×3 (05:31→23:02)
--- NOTE | 2021-09-15 07:45 | Diagnostic Imaging Report ---
EXAMINATION: Chest 1 view HISTORY: Congestive heart failure COMPARISON: 09/14/2021 FINDINGS: Heart size and pulmonary vasculature are stable. Increasing perihilar interstitial opacities with stable patchy interstitial opacities throughout both lungs. Medical support lines and tubes are unchanged. No pneumothorax. The osseous structures are intact. IMPRESSION: 1. Increasing perihilar and basilar interstitial opacities concerning for worsening pulmonary edema and congestive heart failure. Dictated by: Dictated on workstation # [id number]
[2021-09-15] MEDS: PANTOPRAZOLE 40 MG (PROTONIX) VIAL IV SCH (08:31)
[2021-09-15] MEDS: FUROSEMIDE 40 MG/4 ML INJ (LASIX) IVP SCH (08:31)
[2021-09-15] MEDS: ISOSORBIDE MONONITRATE 30 MG (IMDUR) TAB PO SCH (08:32)
[2021-09-15] MEDS: SODIUM BICARBONATE 650 MG TABLET PO SCH ×2 (08:32→11:58)
[2021-09-15] MEDS: CLOPIDOGREL 75 MG (PLAVIX) TABLET PO SCH (08:32)
[2021-09-15] MEDS: SIMETHICONE 80 MG (MYLICON) CHEW PO SCH ×4 (08:32→20:36)
[2021-09-15] MEDS: meTOprolol SUCCINATE 100 MG (TOPROL XL) TAB PO SCH (08:32)
[2021-09-15] MEDS: ASPIRIN E.C. 81 MG (ECOTRIN) TAB PO SCH (08:32)
--- NOTE | 2021-09-15 08:37 | Progress Note ---
Subjective Subjective Date Seen by Provider: Sep 15, 2021 Time Seen by Provider: 08:25 PT REPORTS THAT HE IS FEELING MUCH BETTER TODAY. HE DENIES CHEST PAIN, SHORTNESS OF BREATH, DIZZINESS, OR OTHER CONCERNS. HE REPORTS HE IS "GREAT". Review of Systems General: No Chills, No Night Sweats; Fatigue, Malaise; No Appetite, No Other HEENT: No Head Aches, No Visual Changes, No Eye Pain, No Ear Pain, No Dysphasia, No Sinus Congestion, No Post Nasal Drip, No Sore Throat, No Other Pulmonary: Dyspnea; No Cough, No Pleuritic Chest Pain, No Other Cardiovascular: Edema; No: Chest Pain, Palpitations, Orthopnea, Paroxysmal Noc. Dyspnea, Lt Headedness, Other Gastrointestinal: Constipation, Other (bloating); No: Nausea, Vomiting, Abdominal Pain Neurological: Weakness, Confusion (CHRONIC) All Other Systems Reviewed All Other Systems Reviewed: Yes Objective Exam Vital Signs Vital Signs Date Time Temp Pulse Resp B/P (MAP) Pulse Ox O2 Delivery O2 Flow Rate FiO2 09/15/21 07:48 37.3 09/15/21 07:00 94 09/15/21 07:00 94 18 148/55 90 Vapotherm 25.00 35.00 09/15/21 06:45 91 Vapotherm 20.00 40 09/15/21 06:00 100 11 143/97 95 Vapotherm 25.00 35.00 09/15/21 05:00 95 14 168/68 97 Vapotherm 25.00 35.00 09/15/21 04:00 92 Vapotherm 20.00 45 09/15/21 04:00 93 23 154/59 93 Vapotherm 25.00 35.00 09/15/21 03:00 93 24 161/58 93 Vapotherm 25.00 35.00 09/15/21 02:20 99 161/60 09/15/21 02:00 95 21 161/60 93 Vapotherm 25.00 35.00 09/15/21 01:07 93 Vapotherm 20.00 50 09/15/21 01:00 96 09/15/21 01:00 96 20 165/61 92 Vapotherm 25.00 35.00 09/15/21 00:00 104 15 178/65 96 Vapotherm 25.00 35.00 09/15/21 00:00 95 Vapotherm 25.00 35 09/14/21 23:00 97 21 163/58 90 Vapotherm 25.00 35.00 09/14/21 22:00 100 15 177/60 92 Vapotherm 25.00 35.00 09/14/21 21:20 97 Vapotherm 20.00 35 09/14/21 21:00 99 11 172/61 95 Vapotherm 25.00 35.00 09/14/21 20:24 37.5 09/14/21 20:00 94 Vapotherm 25.00 40 09/14/21 20:00 109 12 180/69 95 Vapotherm 25.00 35.00 09/14/21 19:00 105 14 166/66 96 Vapotherm 25.00 35.00 09/14/21 19:00 103 09/14/21 18:46 96 Vapotherm 20.00 35 09/14/21 18:00 107 12 166/64 97 Vapotherm 25.00 40.00 09/14/21 17:46 37.9 09/14/21 17:00 101 7 172/66 97 Vapotherm 25.00 40.00 09/14/21 16:47 97 Vapotherm 25.00 40 09/14/21 16:38 38.1 09/14/21 16:10 37.6 09/14/21 16:00 114 15 169/72 97 Vapotherm 25.00 40.00 09/14/21 15:59 38.2 09/14/21 15:58 38.2 09/14/21 15:00 95 Vapotherm 20.00 35 09/14/21 15:00 112 18 178/65 95 Vapotherm 25.00 40.00 09/14/21 14:00 115 17 174/66 96 Vapotherm 25.00 40.00 09/14/21 13:00 108 11 172/62 96 Vapotherm 25.00 40.00 09/14/21 12:33 106 09/14/21 12:16 98 Vapotherm 25.00 40 09/14/21 12:00 105 13 152/75 98 Vapotherm 25.00 40.00 09/14/21 11:32 37.4 09/14/21 11:30 98 Vapotherm 25.00 35 09/14/21 11:00 97 14 151/95 98 Vapotherm 25.00 40.00 09/14/21 10:00 101 13 154/54 95 Vapotherm 25.00 40.00 09/14/21 09:38 Vapotherm 25.00 40.00 09/14/21 09:00 99 28 161/66 96 NIV Bilevel 25.00 I & O 09/15/21 07:00 Intake Total 350 ml Output Total 4150 ml Balance -3800 ml General Appearance: No Apparent Distress, WD/WN Eyes: Bilateral Eye Normal Inspection, Bilateral Eye PERRL, Bilateral Eye EOMI HEENT: Pharynx Normal Neck: Full Range of Motion, Non Tender, Supple Respiratory: Chest Non Tender, Crackles (IN BASES, DIFFICULT TO AUSCULTATE DUE TO PT MAKING NOISE WITH EXHALE) Cardiovascular: Regular Rate, Rhythm, Normal Peripheral Pulses Gastrointestinal: Normal Bowel Sounds, Non Tender, Distended (BUT SOFTER THAN YESTERDAY), Other (TYMPANITIC WITH BROWN/ALMONTE OUTPUT FROM NG TUBE) Rectal: Deferred Back: Normal Inspection Extremity: Normal Capillary Refill, Normal Inspection, Normal Range of Motion, Non Tender, No Calf Tenderness, No Pedal Edema Neurologic/Psychiatric: Alert, Other (ORIENTED TO PERSON, PLACE, FLAT AFFECT) Skin: Normal Color, Warm/Dry Lymphatic: No Adenopathy Results Lab Laboratory Tests 09/14/21 11:39: Glucometer 165H 09/14/21 16:15: Urine Color YELLOW, Urine Clarity CLEAR, Urine pH 5.5, Urine Specific [place] 1.015L, Urine Protein 1+H, Urine Glucose (UA) NEGATIVE, Urine Ketones 1+H, Urine Nitrite NEGATIVE, Urine Bilirubin NEGATIVE, Urine Urobilinogen 0.2, Urine Leukocyte Esterase 2+H, Urine RBC (Auto) 2+H, Urine RBC RARE, Urine WBC 25-50H, Urine Crystals NONE, Urine Bacteria TRACE, Urine Casts PRESENT, Urine Hyaline Casts RARE, Urine Mucus NEGATIVE, Urine Culture Indicated YES 09/14/21 17:54: Glucometer 153H 09/15/21 00:34: Glucometer 180H 09/15/21 04:11: White Blood Count 10.8, Red Blood Count 3.73L, Hemoglobin 9.5L, Hematocrit 31L, Mean Corpuscular Volume 83, Mean Corpuscular Hemoglobin 26, Mean Corpuscular Hemoglobin Concent 31L, Red Cell Distribution Width 13.9, Platelet Count 544H, Mean Platelet Volume 9.4, Immature Granulocyte % (Auto) 0, Neutrophils (%) (Auto) 74, Lymphocytes (%) (Auto) 9L, Monocytes (%) (Auto) 14H, Eosinophils (%) (Auto) 2, Basophils (%) (Auto) 1, Neutrophils # (Auto) 8.0H, Lymphocytes # (Auto) 1.0, Monocytes # (Auto) 1.5H, Eosinophils # (Auto) 0.2, Basophils # (Auto) 0.1, Immature Granulocyte # (Auto) 0.0, Sodium Level 147H, Potassium Level 4.0, Chloride Level 107, Carbon Dioxide Level 21, Anion Gap 19H, Blood Urea Nitrogen 44H, Creatinine 1.71H, Estimat Glomerular Filtration Rate 40, BUN/Creatinine Ratio 26, Glucose Level 207H, Calcium Level 9.2, Corrected Calcium 9.8, Magnesium Level 2.0, Total Bilirubin 0.6, Aspartate Amino Transf (AST/SGOT) 29, Alanine Aminotransferase (ALT/SGPT) 22, Alkaline Phosphatase 56, Total Protein 6.4, Albumin 3.3 09/15/21 05:25: Glucometer 202H Assessment/Plan Assessment/Plan Admission Dx CHEST PAIN STEMI DYSPNEA CHRONIC HYPERTENSION ELEVATED TROPONIN PNEUMONIA DIABETES MELLITUS ESOPHAGEAL REFLUX VASCULAR DEMENTIA Assessment and Plan CHEST PAIN STEMI DYSPNEA CHRONIC HYPERTENSION ELEVATED TROPONIN PNEUMONIA RESPIRATORY FAILURE DIABETES MELLITUS ESOPHAGEAL REFLUX RENAL FAILURE ANEMIA VASCULAR DEMENTIA ABDOMINAL DISTENTION CONSTIPATION ANXIETY CHEST PAIN WITH DYSPNEA AND STEMI - MANAGED BY DR. GREY - SEE HIS PROCEDURE NOTE FROM HEART CATH ON ADMISSION - SMALL VESSEL DISEASE, AND DISEASE OF LAD. - MONITOR SYMPTOMS. - PT ON HYDRALAZINE CHRONIC HYPERTENSION - RESTARTED ANTIHYPERTENSIVE MEDICATIONS. RENAL FAILURE - IMPROVED, CONTINUE TO MONITOR RENAL FUNCTION - WT DOWN ANOTHER 1 KG ANEMIA - STABLE AT THIS TIME AT 8.5, PT GIVEN BLOOD 09/10/21. PNEUMONIA WITH RESPIRATORY FAILURE - DEFER TO EICU PULMONOLOGY. - PT WAS ON CEFEPIME - REGIMEN COMPLETED, START ON ZOSYN, MONITOR SERIAL CXR'S - SHOWING WORSENING FAILURE AND PNEUMONIA, PT IS DNR/DNI - PT HAS DECLINED THIS GRINDER SET UP OPERATOR INTERNAL AND THE NURSING STAFF FROM REACHING OUT TO HIS DTR. - PT WEANED DOWN TO VAPOTHERM ANXIETY - PRN ATIVAN ORDERED IN AN ATTEMPT TO DECREASE PRECEDEX DIABETES MELLITUS - FSBS, SLIDING SCALE INSULIN ESOPHAGEAL REFLUX - CONTINUE WITH PPI THERAPY. VASCULAR DEMENTIA - SUPPORTIVE CARE ABDOMINAL DISTENTION WITH CONSTIPATION -PT HAS CONTINUOUS ABDOMINAL DISTENTION - NG TUBE PLACED WITH LARGE DARK COLORED FLUID OUTPUT, PT IMPROVED, WILL DC NG TUBE TODAY Admission Dx CHEST PAIN STEMI DYSPNEA CHRONIC HYPERTENSION ELEVATED TROPONIN PNEUMONIA DIABETES MELLITUS ESOPHAGEAL REFLUX VASCULAR DEMENTIA Clinical Quality Measures Admission Status Admission Dx CHEST PAIN STEMI DYSPNEA CHRONIC HYPERTENSION ELEVATED TROPONIN PNEUMONIA DIABETES MELLITUS ESOPHAGEAL REFLUX VASCULAR DEMENTIA ROSANNE PAN MD Sep 15, 2021 08:37
[2021-09-15] MEDS ORDERED: PIPERACILLIN SODIUM/TAZOBACTAM 4.5 GM in NS (IVPB) 100 ML IV NR (09:00)
--- NOTE | 2021-09-15 09:04 | Cardiology Progress Note ---
Progress Note-Cardiology Events since last exam Date Seen by Provider: Sep 15, 2021 Time Seen by Provider: 09:03 Events since last exam We are following him due to anterior STEMI complicated by cardiogenic shock and moderate left ventricular systolic dysfunction with acute heart failure. He continues to improve. His Precedex infusion was discontinued on 09/14. Overnight he was on Vapotherm and did not require BiPAP. He has transfer orders to cardiac stepdown. He does feel short of breath but denies chest discomfort. He denies palpitations, syncope, or ankle edema. Certain portions of this document may have been dictated utilizing voice recognition technology. Inherent to this technology, typographical and grammatical errors may exist. As much as I am diligent to identify and correct these mistakes, some errors may remain in the document. Vitals Last set of Vitals Signs Vital Signs 09/15/21 09/15/21 12:00 18:00 Pulse 85 Resp 19 B/P (MAP) 139/53 Pulse Ox 100 O2 Delivery Vapotherm O2 Flow Rate 15.00 40.00 FiO2 40 Labs Labs Laboratory Tests 09/15/21 04:11 Exam Vital Signs Vital Signs Date Time Temp Pulse Resp B/P (MAP) Pulse Ox O2 Delivery O2 Flow Rate FiO2 09/15/21 18:00 85 19 139/53 100 Vapotherm 15.00 40.00 09/15/21 16:00 36.7 09/15/21 12:00 40 Physical Exam General: Alert. No acute distress. Eye: No xanthelasma. HENT: Normocephalic. Neck: Jugular venous pressure does not appear elevated. Respiratory: Lungs are clear to auscultation but decreased at the bases bilaterally. Respirations are non-labored. Breath sounds are equal. Symmetrical chest wall expansion. Cardiovascular: Normal rate. Regular rhythm. Distant S1/S2. No murmur. No gallop. No edema. Gastrointestinal: Soft. Normal bowel sounds. Skin: Warm. Dry. Neurologic: Alert and oriented to person and place but not time. Cranial nerves 3-11 grossly intact. Psychiatric: Cooperative. Appropriate mood & affect. Labs Laboratory Tests Test 09/15/21 00:34 09/15/21 04:11 09/15/21 05:25 09/15/21 11:42 Range/Units Glucometer 180 H 202 H 265 H 70-110 MG/DL White Blood Count 10.8 4.3-11.0 10^3/uL Red Blood Count 3.73 L 4.30-5.52 10^6/uL Hemoglobin 9.5 L 13.3-17.7 g/dL Hematocrit 31 L 40-54 % Mean Corpuscular Volume 83 80-99 fL Mean Corpuscular Hemoglobin 26 25-34 pg Mean Corpuscular Hemoglobin Concent 31 L 32-36 g/dL Red Cell Distribution Width 13.9 10.0-14.5 % Platelet Count 544 H 130-400 10^3/uL Mean Platelet Volume 9.4 9.0-12.2 fL Immature Granulocyte % (Auto) 0 % Neutrophils (%) (Auto) 74 42-75 % Lymphocytes (%) (Auto) 9 L 12-44 % Monocytes (%) (Auto) 14 H 0-12 % Eosinophils (%) (Auto) 2 0-10 % Basophils (%) (Auto) 1 0-10 % Neutrophils # (Auto) 8.0 H 1.8-7.8 10^3/uL Lymphocytes # (Auto) 1.0 1.0-4.0 10^3/uL Monocytes # (Auto) 1.5 H 0.0-1.0 10^3/uL Eosinophils # (Auto) 0.2 0.0-0.3 10^3/uL Basophils # (Auto) 0.1 0.0-0.1 10^3/uL Immature Granulocyte # (Auto) 0.0 0.0-0.1 10^3/uL Sodium Level 147 H 135-145 MMOL/L Potassium Level 4.0 3.6-5.0 MMOL/L Chloride Level 107 98-107 MMOL/L Carbon Dioxide Level 21 21-32 MMOL/L Anion Gap 19 H 5-14 MMOL/L Blood Urea Nitrogen 44 H 7-18 MG/DL Creatinine 1.71 H 0.60-1.30 MG/DL Estimat Glomerular Filtration Rate 40 BUN/Creatinine Ratio 26 Glucose Level 207 H 70-105 MG/DL Calcium Level 9.2 8.5-10.1 MG/DL Corrected Calcium 9.8 8.5-10.1 MG/DL Magnesium Level 2.0 1.6-2.4 MG/DL Total Bilirubin 0.6 0.1-1.0 MG/DL Aspartate Amino Transf (AST/SGOT) 29 5-34 U/L Alanine Aminotransferase (ALT/SGPT) 22 0-55 U/L Alkaline Phosphatase 56 40-136 U/L Total Protein 6.4 6.4-8.2 GM/DL Albumin 3.3 3.2-4.5 GM/DL Test 09/15/21 17:25 Range/Units Glucometer 267 H 70-110 MG/DL Diagnosis/Problems Diagnosis/Problems (1) ST elevation myocardial infarction (STEMI) of anterior wall, initial episode of care Assessment & Plan: This was treated with 1 drug-eluting stent to the proximal left anterior descending coronary artery. He is on aspirin, clopidogrel, beta- teofilo, long-acting nitrates and high-dose statin medication. The day following his procedure he had recurrent angina and had a second cardiac ayesha terization which showed the stent to be patent. He has not complained of any recurrent angina since then. His post procedure course has been complicated with ongoing respiratory failure likely due to acute heart failure and possibly pneumonia. He seems to be gradually improving. (2) Acute HFrEF (heart failure with reduced ejection fraction) Assessment & Plan: He had evidence of pulmonary congestion on his chest x-ray. He had been receiving intravenous fluids due to his renal insufficiency which I stopped on 09/13. He had a previously normal ejection fraction earlier this year that is now moderately impaired following the myocardial infarction. I recommend we continue intravenous furosemide for the time being. His renal function is actually now improving.. His chest x-ray has been improving but he is still requiring BiPAP or high flow oxygen. We will continue the current guideline directed medical therapy. He is not a candidate for NOVA, ARB or aldosterone antagonist due to the poor renal function. If his renal function continues to improve, then we may be able to consider starting one of these medications. (3) Ischemic cardiomyopathy Assessment & Plan: He had an echocardiogram in May 2021 that showed a normal ejection fraction. Now his echocardiogram shows moderate left ventricu lar systolic dysfunction. Some of this may be due to stunning from the acute myocardial infarction. He is on metoprolol succinate, isosorbide mononitrate and hydralazine. He is not a good candidate for NOVA inhibitor, ARB or aldosterone antagonist due to his acute kidney injury. We may need to consider a LifeVest prior to discharge but he is currently DO NOT RESUSCITATE. (4) Cardiogenic shock Assessment & Plan: The dopamine was discontinued around 09/12. His blood pressures have improved and I restarted metoprolol. He is also getting hydralazine. I would avoid rapidly increasing his antihypertensive medication so as to help avoid iatrogenic hypotension. (5) Primary hypertension Assessment & Plan: Blood pressures have been intermittently elevated. He had been receiving amlodipine but due to the moderate left ventricular systolic dysfunction, this may not be the best choice for his hypertension. We will attempt to get him back on oral metoprolol succinate.. Continue long-acting nitrate and hydralazine. As above, I recommend avoiding rapid changes in his antihypertensive medication or he may develop recurrent hypotension. (6) Mixed hyperlipidemia Assessment & Plan: Continue high-dose statin medication in light of the acute myocardial infarction. (7) Acute kidney injury superimposed on chronic kidney disease Assessment & Plan: His renal function now appears to be improving. I did review his prior records and his most recent renal function we have in the computer was from 2019 at which time he had stage IIIa chronic kidney disease. The acute kidney injury is likely multifactorial. Some of this could be due to renal venous hypertension from the acute heart failure as well as ATN from shock . However, this will often turn around over days to weeks. He does not currently appear to be in need of renal replacement therapy. (8) Acute on chronic respiratory failure with hypoxia and hypercapnia Assessment & Plan: Most likely multifactorial due to heart failure and possibly pneumonia. He continues to slowly improve. BHAVYA RAMIREZ JR, MD Sep 15, 2021 09:04
[2021-09-15] MEDS: polyethylene glycoL POWDER 17 GM (MIRALAX) PACK PO SCH ×2 (09:48→20:36)
--- NOTE | 2021-09-15 11:21 | Tele-ICU Progress Note ---
Subjective Date Seen by a Provider: Sep 15, 2021 Time Seen by a Provider: 11:20 Subjective/Events-last exam (Tele-ICU Physician , Progress Note ) Available chart/ vitals / labs / Images reviewed Video assessment done using teleICU camera, rest of exam as per RN Discussed with RN , EXAM PER RN Events overnight : Afebrile FiO2 - VT 40 L I/O = neg 3800 Drips: precedex 0.3 Pressors: , hemodynamically stable Consultants: [facility] Hospital course: 09/07 to [facility] with SOB - dx with nstemia and PNA 08/29- s/p cath with PCI to LAD , on VT 40 L 100% 09/09 - VT 25L 60% , DOBUTAMIE gtt for ISAI/CHF, 09/10 - worsenign ISAI - cr 2.8 VT 40 L 09/12 - OFF DOPA 09/14- VT 20L 40 % , Precedex at 0.6 mcg - VT A/P STEMI -09/07 with known CAD - s/p cath 09/07 with PCI to LAD, on plavix - as per cards -ECHO 09/07 EF 35% Acute hypoxic resp failure - PNA vs CHF (vs ? PE - low susp based on cxr - on cefepime - cont on Vapotherm now - titrate down - lasix 80 daily - WILL LIMIT PO INTAKE _ DISCSUSSED WITH RN Anxiety - precedex off 09/15 - monitor Suspected PNA - NEGATIVE for covid , mycoplasma , flu in S[place] - cefemime 11--> 09/13 Zosyn 09/15 --> ISAI/CKD - cr baseline 1.5 - on bicrb PO 650 tid Pulm HTN - RVSP 55 mmHg -- follow , will benefit from diuresis DM II - ISS , follow Anemia - stable -s/p transfusion pRBC 09/10 Anxiety - precedex - 09/09--> 09/10 abd distention - better - NG is out 09/15 - starting PO Lines : perip (Central Line Necessity Reviewed) Mccord: 09/09 OG: Nutrition: po Analgesia: Anxiety/ delirium VTE Prophylaxis: hep sq Stress Ulcer Prophylaxis: po Plans in collaboration with bedside consultants and IM MDs. Discussed with RN to reach out if any questions or concerns A total of 33 minutes of critical care time was devoted to this patient today, required to treat and/or prevent further deterioration of critical care condition ( as above ) . Sepsis Event Evaluation Height, Weight, BMI Height: 5'11.00" Weight: 212lbs. 9.0oz. 96.477473pj; 27.76 BMI Method:Stated Exam Exam Patient acknowledged, consented, and participated in this virtual visit which was conducted using real time audio/video Vital Signs Date Time Temp Pulse Resp B/P (MAP) Pulse Ox O2 Delivery O2 Flow Rate FiO2 09/15/21 10:16 100 Vapotherm 20.00 45 09/15/21 10:00 93 8 172/78 97 Vapotherm 25.00 35.00 09/15/21 09:00 98 12 164/69 94 Vapotherm 25.00 35.00 09/15/21 08:00 97 8 169/67 96 Vapotherm 25.00 35.00 09/15/21 08:00 94 Vapotherm 20.00 45 09/15/21 07:48 37.3 09/15/21 07:00 94 09/15/21 07:00 94 18 148/55 90 Vapotherm 25.00 35.00 09/15/21 06:45 91 Vapotherm 20.00 40 09/15/21 06:00 100 11 143/97 95 Vapotherm 25.00 35.00 09/15/21 05:00 95 14 168/68 97 Vapotherm 25.00 35.00 09/15/21 04:00 92 Vapotherm 20.00 45 09/15/21 04:00 93 23 154/59 93 Vapotherm 25.00 35.00 09/15/21 03:00 93 24 161/58 93 Vapotherm 25.00 35.00 09/15/21 02:20 99 161/60 09/15/21 02:00 95 21 161/60 93 Vapotherm 25.00 35.00 09/15/21 01:07 93 Vapotherm 20.00 50 09/15/21 01:00 96 09/15/21 01:00 96 20 165/61 92 Vapotherm 25.00 35.00 09/15/21 00:00 104 15 178/65 96 Vapotherm 25.00 35.00 09/15/21 00:00 95 Vapotherm 25.00 35 09/14/21 23:00 97 21 163/58 90 Vapotherm 25.00 35.00 09/14/21 22:00 100 15 177/60 92 Vapotherm 25.00 35.00 09/14/21 21:20 97 Vapotherm 20.00 35 09/14/21 21:00 99 11 172/61 95 Vapotherm 25.00 35.00 09/14/21 20:24 37.5 09/14/21 20:00 94 Vapotherm 25.00 40 09/14/21 20:00 109 12 180/69 95 Vapotherm 25.00 35.00 09/14/21 19:00 105 14 166/66 96 Vapotherm 25.00 35.00 09/14/21 19:00 103 09/14/21 18:46 96 Vapotherm 20.00 35 09/14/21 18:00 107 12 166/64 97 Vapotherm 25.00 40.00 09/14/21 17:46 37.9 09/14/21 17:00 101 7 172/66 97 Vapotherm 25.00 40.00 09/14/21 16:47 97 Vapotherm 25.00 40 09/14/21 16:38 38.1 09/14/21 16:10 37.6 09/14/21 16:00 114 15 169/72 97 Vapotherm 25.00 40.00 09/14/21 15:59 38.2 09/14/21 15:58 38.2 09/14/21 15:00 95 Vapotherm 20.00 35 09/14/21 15:00 112 18 178/65 95 Vapotherm 25.00 40.00 09/14/21 14:00 115 17 174/66 96 Vapotherm 25.00 40.00 09/14/21 13:00 108 11 172/62 96 Vapotherm 25.00 40.00 09/14/21 12:33 106 09/14/21 12:16 98 Vapotherm 25.00 40 09/14/21 12:00 105 13 152/75 98 Vapotherm 25.00 40.00 09/14/21 11:32 37.4 09/14/21 11:30 98 Vapotherm 25.00 35 I & O 09/15/21 07:00 Intake Total 350 ml Output Total 4150 ml Balance -3800 ml Height & Weight Height: 5'11.00" Weight: 212lbs. 9.0oz. 96.899849yj; 27.76 BMI Method:Stated General Appearance: WD/WN, Mild Distress HEENT: Pharynx Normal Neck: Full Range of Motion, Non Tender, Supple Respiratory: Chest Non Tender, Crackles (IN BASES, DIFFICULT TO AUSCULTATE DUE TO PT MAKING NOISE WITH EXHALE) Cardiovascular: Regular Rate, Rhythm, Normal Peripheral Pulses Capillary Refill: Less Than 3 Seconds Extremity: Normal Capillary Refill, Normal Inspection, Normal Range of Motion, Non Tender, No Calf Tenderness, No Pedal Edema Neurologic/Psychiatric: Alert, Other (ORIENTED TO PERSON, PLACE, FLAT AFFECT) Skin: Normal Color, Warm/Dry Lymphatic: No Adenopathy Results Lab Laboratory Tests 09/14/21 04:27 09/15/21 04:11 Assessment/Plan Assessment/Plan (Tele-ICU Physician , Progress Note ) Available chart/ vitals / labs / Images reviewed Video assessment done using teleICU camera, rest of exam as per RN Discussed with RN , EXAM PER RN Events overnight : Afebrile FiO2 - VT 40 L I/O = neg 3800 Drips: precedex 0.3 Pressors: , hemodynamically stable Consultants: cards Hospital course: 09/07 to [facility] with SOB - dx with nstemia and PNA 08/29- s/p cath with PCI to LAD , on VT 40 L 100% 09/09 - VT 25L 60% , DOBUTAMIE gtt for ISAI/CHF, 09/10 - worsenign ISAI - cr 2.8 VT 40 L 09/12 - OFF DOPA 09/14- VT 20L 40 % , Precedex at 0.6 mcg - VT A/P STEMI -09/07 with known CAD - s/p cath 09/07 with PCI to LAD, on plavix - as per cards -ECHO 09/07 EF 35% Acute hypoxic resp failure - PNA vs CHF (vs ? PE - low susp based on cxr - on cefepime - cont on Vapotherm now - titrate down - lasix 80 daily - WILL LIMIT PO INTAKE _ DISCSUSSED WITH RN Anxiety - precedex off 09/15 - monitor Suspected PNA - NEGATIVE for covid , mycoplasma , flu in [place] - cefemime 11--> 09/13 Zosyn 09/15 --> ISAI/CKD - cr baseline 1.5 - on bicrb PO 650 tid Pulm HTN - RVSP 55 mmHg -- follow , will benefit from diuresis DM II - ISS , follow Anemia - stable -s/p transfusion pRBC 09/10 Anxiety - precedex - 09/09--> 09/10 abd distention - better - NG is out 09/15 - starting PO Lines : perip (Central Line Necessity Reviewed) Mccord: 09/09 OG: Nutrition: po Analgesia: Anxiety/ delirium VTE Prophylaxis: hep sq Stress Ulcer Prophylaxis: po Plans in collaboration with bedside consultants and IM MDs. Discussed with RN to reach out if any questions or concerns A total of 33 minutes of critical care time was devoted to this patient today, required to treat and/or prevent further deterioration of critical care conditi on ( as above ) . MIKE DELEON MD Sep 15, 2021 11:20
--- NOTE | 2021-09-15 13:50 | Physical Therapy Evaluation ---
PT Evaluation-General Medical Diagnosis Admission Date Sep 07, 2021 at 11:39 Medical Diagnosis: pneumonia/acute WI/respiratory failure Onset Date: Sep 07, 2021 Therapy Diagnosis Therapy Diagnosis: generalized weakness/debility Height/Weight Height (Feet): 5 Height (Inches): 11.00 Weight (Pounds): 212 Weight (Ounces): 9.0 Precautions Precautions/Isolations: Aspiration, Fall Prevention, Standard Precautions Referral Physician: Karolina Reason for Referral: Evaluation/Treatment Medical History Pertinent Medical History: CAD, CVA, HTN, WI, PVD Current History Transfer from [facility] due to acute WI requiring heart cath intervention Reviewed History: Yes Social History Home: Assisted Living Prior Prior Level of Function SCALE: Activities may be completed with or without assistive devices. 1-Sdpsrychsg-ukclfop completes the activity by him/herself with no assistance from a helper. 5-Set-up or Clean-up Assistance-helper sets up or cleans up; patient completes activity. [place] assists only prior to or following the activity. 4-Supervision or Touching Assistance-helper provides verbal cues and/or touching/steadying and/or contact guard assistance as patient completes activity. Assistance may be provided throughout the activity or intermittently. 3-Partial/Moderate Assistance-helper does LESS THAN HALF the effort. [place] lifts, holds or supports trunk or limbs, but provides less than half the effort. 2-Substantial/Maximal Assistance-helper does MORE THAN HALF the effort. [place] lifts or holds trunk or limbs and provides more than half the effort. 0-Erhpwgphu-ujpzow does ALL the effort. Patient does none of the effort to complete the activity. Or, the assistance of 2 or more helpers is required for the patient to complete the activity. If activity was not attempted, code reason: 7-Patient Refused. 9-Not Applicable-not attempted and the patient did not perform the activity before the current illness, exacerbation or injury. 10-Not Attempted due to Environmental Limitations-(lack of equipment, weather restraints, etc.). 88-Not Attempted due to Medical Conditions or Safety Concerns. Bed Mobility: 6 Transfers (B,C,W/C): 6 Gait: 6 Stairs: 9 Indoor Mobility (Ambulation): Independent Stairs: Not Applicalbe Prior Devices Use: Walker PT Evaluation-Current Subjective Patient agrees to PT. Objective Patient Orientation: Person, Time, Situation Attachments: Oxygen (vapotherm), Mccord Catheter, IV ROM/Strength ROM Lower Extremities bilateral LE WFL Strength Lower Extremities 3-/5 grossly bilateral LE (unable to formally test due to inability to follow direction) Integumentary/Posture Bladder Incontinence: Mccord Cath Posture trunk flexed posture Neuromuscular (Tone, Coordination, Reflexes) severely diminished coordination with all mobility Sensory Vision: Functional Hearing: Functional Transfers Lying to Sitting/Side of Bed(Q: 1 Sit to Stand (QC): 1 Chair/Viw-cc-Nwlbm Xfer(QC): 1 Gait Does the Patient Walk?: No and Walking Goal IS indicated Balance Sitting Static: Fair Sitting Dynamic: Poor Standing Static: Poor Standing Dynamic: Poor Assessment/Needs 76 y.o. male, will benefit from skilled PT to address functional strength and mobility to improve current LOF. From a PT standpoint, patient may benefit from extended care facility to address limitations to ensure safe return to [place]. Rehab Potential: Guarded PT Longterm Goals Councilman Goals PT Longterm Goals Time Frame: Sep 27, 2021 Roll Left & Right (QC): 3 Sit to Lying (QC): 3 Lying-Sitting on Side/Bed(QC): 3 Sit to Stand (QC): 3 Chair/Ffd-wh-Dwevo Xfer(QC): 3 Walk 10 feet (QC): 3 PT Plan Problem List Problem List: Activity Tolerance, Functional Strength, Safety, Balance, Gait, Transfer, Bed Mobility Treatment/Plan Treatment Plan: Continue Plan of Care Treatment Plan: Bed Mobility, Education, Functional Activity Lona, Functional Strength, Gait, Safety, Therapeutic Exercise, Transfers Treatment Duration: Sep 27, 2021 Frequency: 6 times per week Estimated Hrs Per Day: .25 hour per day Time/GCodes Time In: 1245 Time Out: 1302 Total Billed Treatment Time: 17 Total Billed Treatment 1 visit EVMod 17 min GARTH DE LA O PT Sep 15, 2021 13:49
[2021-09-15] MEDS: FLUCONAZOLE 100 MG/50 ML 50 ML IV SCH (15:39)
[2021-09-15] MEDS: PIPERACILLIN SODIUM/TAZOBACTAM 4.5 GM in NS (IVPB) 100 ML IV SCH ×2 (15:39→23:01)
[2021-09-16] MEDS: RT-ALBUTEROL/IPRATROPIUM 3 ML (DUONEB) VIAL INH SCH ×5 (04:26→18:39)
[2021-09-16 05:16] LABS: BASOPHILS # (AUTO) 0.1 10^3/uL (0.0-0.1); BASOPHILS % (AUTO) 1 % (0-10); EOSINOPHILS # (AUTO) 0.7 10^3/uL (0.0-0.3); EOSINOPHILS % (AUTO) 6 % (0-10); HEMATOCRIT 30 % (40-54); HEMOGLOBIN 9.5 g/dL (13.3-17.7); LYMPHOCYTES # (AUTO) 1.1 10^3/uL (1.0-4.0); LYMPHOCYTES % (AUTO) 10 % (12-44); MEAN CORPUSCULAR HEMOGLOBIN 26 pg (25-34); MEAN CORPUSCULAR HGB CONC 32 g/dL (32-36); MEAN CORPUSCULAR VOLUME 83 fL (80-99); MEAN PLATELET VOLUME 9.5 fL (9.0-12.2); MONOCYTES # (AUTO) 1.4 10^3/uL (0.0-1.0); MONOCYTES % (AUTO) 12 % (0-12); NEUTROPHILS # (AUTO) 8.1 10^3/uL (1.8-7.8); NEUTROPHILS % (AUTO) 71 % (42-75); PLATELET COUNT 491 10^3/uL (130-400); WHITE BLOOD COUNT 11.4 10^3/uL (4.3-11.0)
[2021-09-16 05:30] LABS: ALBUMIN 3.2 GM/DL (3.2-4.5)
[2021-09-16] MEDS: SUCRALFATE 1 GM (CARAFATE) TAB PO SCH ×4 (05:30→19:16)
[2021-09-16] MEDS: inSUlin ASPART (NovoLOG) 1 UNIT/0.01 ML (CHARGE PER UNIT) SQ SCH ×4 (05:30→17:47)
[2021-09-16] MEDS: hydrALAZINE (APRESOLINE) 25 MG TAB PO SCH ×3 (05:30→21:08)
[2021-09-16 05:31] LABS: POTASSIUM 3.4 MMOL/L (3.6-5.0)
[2021-09-16 05:32] LABS: CALCIUM 8.6 MG/DL (8.5-10.1)
[2021-09-16 05:33] LABS: TOTAL PROTEIN 6.2 GM/DL (6.4-8.2)
[2021-09-16 05:35] LABS: BILIRUBIN,TOTAL 0.8 MG/DL (0.1-1.0)
[2021-09-16 05:36] LABS: CREATININE SERUM 1.46 MG/DL (0.60-1.30)
[2021-09-16 05:39] LABS: MAGNESIUM 1.7 MG/DL (1.6-2.4)
--- NOTE | 2021-09-16 07:50 | Diagnostic Imaging Report ---
INDICATION: Pneumonia. COMPARISON: 09/15/2021. FINDINGS: Extensive 5 lobe infiltrates mixed interstitial and airspace, however they have at least mildly improved in the interim. The heart size remains enlarged. No pneumothorax. Vascular calcifications chronic. IMPRESSION: Mild improvements in extensive 5 lobe mixed interstitial and airspace disease likely improvements in edema, however pneumonia not excluded. Similar cardiomegaly. No adverse change evident. Dictated by: Dictated on workstation # [id number]
[2021-09-16] MEDS: ISOSORBIDE MONONITRATE 30 MG (IMDUR) TAB PO SCH (08:43)
[2021-09-16] MEDS: SIMETHICONE 80 MG (MYLICON) CHEW PO SCH ×4 (08:44→20:50)
[2021-09-16] MEDS: ASPIRIN E.C. 81 MG (ECOTRIN) TAB PO SCH (08:45)
[2021-09-16] MEDS: CLOPIDOGREL 75 MG (PLAVIX) TABLET PO SCH (08:45)
[2021-09-16] MEDS: FUROSEMIDE 40 MG/4 ML INJ (LASIX) IVP SCH (08:47)
[2021-09-16] MEDS: PANTOPRAZOLE 40 MG (PROTONIX) VIAL IV SCH (08:47)
[2021-09-16] MEDS: polyethylene glycoL POWDER 17 GM (MIRALAX) PACK PO SCH ×2 (08:48→19:16)
[2021-09-16] MEDS: PIPERACILLIN SODIUM/TAZOBACTAM 4.5 GM in NS (IVPB) 100 ML IV SCH ×3 (08:51→23:02)
--- NOTE | 2021-09-16 09:29 | Physical Therapy Daily Note ---
PT Daily Note-Current Subjective Patient agrees to PT. He reports he is feeling better today. Mental Status Patient Orientation: Person Attachments: Oxygen, Mccord Catheter Transfers SCALE: Activities may be completed with or without assistive devices. 0-Vxhjcmmdli-keodcae completes the activity by him/herself with no assistance from a helper. 5-Set-up or Clean-up Assistance-helper sets up or cleans up; patient completes activity. [place] assists only prior to or following the activity. 4-Supervision or Touching Assistance-helper provides verbal cues and/or touching/steadying and/or contact guard assistance as patient completes acti vity. Assistance may be provided throughout the activity or intermittently. 3-Partial/Moderate Assistance-helper does LESS THAN HALF the effort. [place] lifts, holds or supports trunk or limbs, but provides less than half the effort. 2-Substantial/Maximal Assistance-helper does MORE THAN HALF the effort. [place] lifts or holds trunk or limbs and provides more than half the effort. 3-Aukhkdjkn-qwukyi does ALL the effort. Patient does none of the effort to complete the activity. Or, the assistance of 2 or more helpers is required for the patient to complete the activity. If activity was not attempted, code reason: 7-Patient Refused. 9-Not Applicable-not attempted and the patient did not perform the activity before the current illness, exacerbation or injury. 10-Not Attempted due to Environmental Limitations-(lack of equipment, weather restraints, etc.). 88-Not Attempted due to Medical Conditions or Safety Concerns. Lying to Sitting/Side of Bed(Q: 2 Sit to Stand (QC): 1 Chair/Vam-bw-Qioqq Xfer(QC): 1 Patient continues to be dependent with sit to stand and SPT Exercises Seated Therapy Exercises: Long arc quads Seated Reps: 12 Assessment Patient up in recliner and requests to eat his breakfast. Patient tolerates minimal activity. PT Skilled Nursing Goals Skilled Nursing Goals PT Hand Endband Cutter Goals Time Frame: Sep 27, 2021 Roll Left & Right (QC): 3 Sit to Lying (QC): 3 Lying-Sitting on Side/Bed(QC): 3 Sit to Stand (QC): 3 Chair/Lxm-zh-Tuyzl Xfer(QC): 3 Walk 10 feet (QC): 3 PT Plan Treatment/Plan Treatment Plan: Continue Plan of Care Treatment Plan: Bed Mobility, Education, Functional Activity Lona, Functional Strength, Gait, Safety, Therapeutic Exercise, Transfers Treatment Duration: Sep 27, 2021 Frequency: 6 times per week Estimated Hrs Per Day: .25 hour per day Time/GCodes Time In: 816 Time Out: 826 Total Billed Treatment Time: 10 Total Billed Treatment 1 visit FA 10 min GARTH DE LA O PT Sep 16, 2021 09:29
--- NOTE | 2021-09-16 09:31 | Progress Note ---
Subjective Subjective Date Seen by Provider: Sep 16, 2021 Time Seen by Provider: 08:40 PT SITTING UP AT BEDSIDE TODAY IN CHAIR - HE IS EATING BREAKFAST, REPORTS THAT HE IS DOING WELL, HE WAS COMBING HIS HAIR. HE DOES NOT REMEMBER HIS ILLNESS FROM A FEW DAYS AGO. Review of Systems General: No Chills, No Night Sweats; Fatigue, Malaise, Appetite (IMPROVED); No Other HEENT: No Head Aches, No Visual Changes, No Eye Pain, No Ear Pain, No Dysphasia, No Sinus Congestion, No Post Nasal Drip, No Sore Throat, No Other Pulmonary: Dyspnea; No Cough, No Pleuritic Chest Pain, No Other Cardiovascular: Edema; No: Chest Pain, Palpitations, Orthopnea, Paroxysmal Noc. Dyspnea, Lt Headedness, Other Gastrointestinal: Other (BLOATING IMPROVED); No: Nausea, Vomiting, Abdominal Pain Neurological: Weakness, Confusion (CHRONIC) All Other Systems Reviewed All Other Systems Reviewed: Yes Objective Exam Vital Signs Vital Signs Date Time Temp Pulse Resp B/P (MAP) Pulse Ox O2 Delivery O2 Flow Rate FiO2 09/16/21 07:43 36.9 09/16/21 07:09 97 High Flow N/C 2.00 09/16/21 07:00 93 09/16/21 07:00 92 150/64 95 Nasal Cannula 2.00 09/16/21 06:36 91 25 146/60 95 Nasal Cannula 2.00 09/16/21 05:36 101 16 149/66 96 Nasal Cannula 2.00 09/16/21 04:36 96 18 164/67 96 Nasal Cannula 4.00 09/16/21 04:06 94 16 159/65 99 Nasal Cannula 4.00 09/16/21 03:45 98 High Flow N/C 4.00 09/16/21 03:06 96 160/74 96 Nasal Cannula 4.00 09/16/21 02:06 92 17 161/65 98 Nasal Cannula 4.00 09/16/21 01:06 96 18 158/59 98 Nasal Cannula 4.00 09/16/21 01:00 93 09/16/21 00:36 89 9 157/60 99 Nasal Cannula 4.00 09/16/21 00:05 36.8 Nasal Cannula 4.00 09/15/21 23:37 100 High Flow N/C 4.00 09/15/21 23:36 89 18 152/67 99 Nasal Cannula 4.00 09/15/21 22:36 89 16 156/60 98 Nasal Cannula 4.00 09/15/21 21:52 96 High Flow N/C 6.00 09/15/21 21:00 85 16 152/67 99 Nasal Cannula 4.00 09/15/21 20:00 99 High Flow N/C 4.00 09/15/21 20:00 84 19 146/56 100 Nasal Cannula 4.00 09/15/21 19:30 36.6 09/15/21 19:30 84 18 148/57 100 Nasal Cannula 4.00 09/15/21 19:00 84 25 141/54 100 Nasal Cannula 8.00 09/15/21 19:00 84 09/15/21 19:00 100 High Flow N/C 8.00 09/15/21 18:00 85 19 139/53 100 Vapotherm 15.00 40.00 09/15/21 17:00 82 11 140/56 100 Vapotherm 15.00 40.00 09/15/21 16:00 36.7 09/15/21 16:00 99 High Flow N/C 8.00 09/15/21 16:00 86 19 147/60 100 Vapotherm 15.00 40.00 09/15/21 15:00 89 12 151/53 100 Vapotherm 15.00 40.00 09/15/21 14:37 100 High Flow N/C 8.00 09/15/21 14:00 93 10 135/51 96 Vapotherm 15.00 40.00 09/15/21 13:00 99 20 150/55 96 Vapotherm 15.00 40.00 09/15/21 13:00 99 09/15/21 12:04 15 98 Vapotherm 15.00 40.00 09/15/21 12:00 96 9 147/62 88 Vapotherm 25.00 35.00 09/15/21 12:00 98 Vapotherm 15.00 40 09/15/21 11:55 37.2 09/15/21 11:00 96 12 148/78 98 Vapotherm 25.00 35.00 09/15/21 10:16 100 Vapotherm 20.00 45 09/15/21 10:00 93 8 172/78 97 Vapotherm 25.00 35.00 I & O 09/16/21 07:00 Intake Total 2860 ml Output Total 3025 ml Balance -165 ml General Appearance: No Apparent Distress, WD/WN Eyes: Bilateral Eye Normal Inspection, Bilateral Eye PERRL, Bilateral Eye EOMI HEENT: Pharynx Normal Neck: Full Range of Motion, Non Tender, Supple Respiratory: Chest Non Tender, Crackles (IN BASES, DIFFICULT TO AUSCULTATE DUE TO PT MAKING NOISE WITH EXHALE) Cardiovascular: Regular Rate, Rhythm, Normal Peripheral Pulses Gastrointestinal: Normal Bowel Sounds, Non Tender, Distended (BUT SOFTER THAN YESTERDAY), Other (TYMPANITIC WITH BROWN/ALMONTE OUTPUT FROM NG TUBE) Rectal: Deferred Back: Normal Inspection Extremity: Normal Capillary Refill, Normal Inspection, Normal Range of Motion, Non Tender, No Calf Tenderness, No Pedal Edema Neurologic/Psychiatric: Alert, Other (ORIENTED TO PERSON, PLACE, FLAT AFFECT) Skin: Normal Color, Warm/Dry Lymphatic: No Adenopathy Results Lab Laboratory Tests 09/15/21 11:42: Glucometer 265H 09/15/21 17:25: Glucometer 267H 09/15/21 22:59: Glucometer 177H 09/16/21 04:48: White Blood Count 11.4H, Red Blood Count 3.63L, Hemoglobin 9.5L, Hematocrit 30L, Mean Corpuscular Volume 83, Mean Corpuscular Hemoglobin 26, Mean Corpuscular Hemoglobin Concent 32, Red Cell Distribution Width 13.8, Platelet Count 491H, Mean Platelet Volume 9.5, Immature Granulocyte % (Auto) 0, Neutrophils (%) (Auto) 71, Lymphocytes (%) (Auto) 10L, Monocytes (%) (Auto) 12, Eosinophils (%) (Auto) 6, Basophils (%) (Auto) 1, Neutrophils # (Auto) 8.1H, Lymphocytes # (Auto) 1.1, Monocytes # (Auto) 1.4H, Eosinophils # (Auto) 0.7H, Basophils # (Auto) 0.1, Immature Granulocyte # (Auto) 0.1, Sodium Level 138, Potassium Level 3.4L, Chloride Level 98, Carbon Dioxide Level 23, Anion Gap 17H, Blood Urea Nitrogen 33H, Creatinine 1.46H, Estimat Glomerular Filtration Rate 49, BUN/Creatinine Ratio 23, Glucose Level 215H, Calcium Level 8.6, Corrected Calcium 9.2, Magnesium Level 1.7, Total Bilirubin 0.8, Aspartate Amino Transf (AST/SGOT) 29, Alanine Aminotransferase (ALT/SGPT) 26, Alkaline Phosphatase 54, Total Protein 6.2L, Albumin 3.2 09/16/21 05:26: Glucometer 199H Microbiology 09/14/21 Blood Culture - Preliminary, Resulted No growth 09/14/21 Urine Culture - Preliminary, Resulted Slight Growth Present Assessment/Plan Assessment/Plan Admission Dx CHEST PAIN STEMI DYSPNEA CHRONIC HYPERTENSION ELEVATED TROPONIN PNEUMONIA DIABETES MELLITUS ESOPHAGEAL REFLUX VASCULAR DEMENTIA Assessment and Plan CHEST PAIN STEMI DYSPNEA CHRONIC HYPERTENSION ELEVATED TROPONIN PNEUMONIA RESPIRATORY FAILURE DIABETES MELLITUS ESOPHAGEAL REFLUX RENAL FAILURE ANEMIA VASCULAR DEMENTIA ABDOMINAL DISTENTION CONSTIPATION ANXIETY CHEST PAIN WITH DYSPNEA AND STEMI - MANAGED BY DR. GREY - SEE HIS PROCEDURE NOTE FROM HEART CATH ON ADMISSION - SMALL VESSEL DISEASE, AND DISEASE OF LAD. - MONITOR SYMPTOMS. - PT ON HYDRALAZINE CHRONIC HYPERTENSION - RESTARTED ANTIHYPERTENSIVE MEDICATIONS. RENAL FAILURE - IMPROVED, CONTINUE TO MONITOR RENAL FUNCTION - WT DOWN ANOTHER 1.5 KG (DOWN ABOUT 14KG) ANEMIA - STABLE AT THIS TIME AT 8.5, PT GIVEN BLOOD 09/10/21. PNEUMONIA WITH RESPIRATORY FAILURE - DEFER TO [facility]. - PT WAS ON CEFEPIME - REGIMEN COMPLETED, STARTED ON ZOSYN 09/15/21 - MONITOR SERIAL CXR'S - PT IS DNR/DNI - PT HAS DECLINED THIS STATE APPELLATE CLERK AND THE NURSING STAFF FROM REACHING OUT TO HIS DTR. - PT WEANED DOWN TO VAPOTHERM AND THEN LAST NIGHT MOVED TO 2.5L NC ANXIETY - PRN ATIVAN ORDERED DIABETES MELLITUS - FSBS, SLIDING SCALE INSULIN ESOPHAGEAL REFLUX - CONTINUE WITH PPI THERAPY. VASCULAR DEMENTIA - SUPPORTIVE CARE ABDOMINAL DISTENTION WITH CONSTIPATION -PT HAD CONTINUOUS ABDOMINAL DISTENTION - NG TUBE PLACED WITH LARGE DARK COLORED FLUID OUTPUT, PT IMPROVED THEREFORE NG TUBE DC'D ON 09/15/21. WILL TRANSITION TO 4TH FLOOR TOMORROW AND THEN LOOK AT [facility] FOR SHORT [facility] [place] Admission Dx CHEST PAIN STEMI DYSPNEA CHRONIC HYPERTENSION ELEVATED TROPONIN PNEUMONIA DIABETES MELLITUS ESOPHAGEAL REFLUX VASCULAR DEMENTIA Clinical Quality Measures Admission Status Admission Dx CHEST PAIN STEMI DYSPNEA CHRONIC HYPERTENSION ELEVATED TROPONIN PNEUMONIA DIABETES MELLITUS ESOPHAGEAL REFLUX VASCULAR DEMENTIA ROSANNE PAN MD Sep 16, 2021 09:31
[2021-09-16] MEDS: meTOprolol SUCCINATE 100 MG (TOPROL XL) TAB PO SCH (10:10)
--- NOTE | 2021-09-16 11:22 | Pulmonary Consultation ---
History of Present Illness History of Present Illness Date Seen by Provider: Sep 16, 2021 Time Seen by Provider: 11:20 Date of Admission Reason for Visit: Acute myocardial infarction History of Present Illness H&P reviewed 09/07. 76 y/o M admitted for MICU for Acute AK. Hospital course complicated by acute hypoxic respiratory failure requiring vapotherm. Patient CXR notable for bilateral infiltates concerning for pneumonia vs volume overload. Currently on Zosyn. however completed 5 day course of cefepime. WBC is stable at 11. Allergies and Home Medications Allergies Coded Allergies: No Known Drug Allergies (Unverified , 07/19/15) Home Medications Amlodipine Besylate 10 Mg Tablet, 10 MG PO DAILY, (Reported) Aspirin 81 Mg Tablet.dr, 81 MG PO DAILY, (Reported) Atorvastatin Calcium 10 Mg Tablet, 10 MG PO 1600, (Reported) Clopidogrel Bisulfate 75 Mg Tablet, 75 MG PO 1600, (Reported) Furosemide 40 Mg Tablet, 40 MG PO DAILY, (Reported) Insulin Glargine,Hum.rec.anlog 100 Unit/1 Ml Insuln.pen, 45 UNIT SQ BID, (Reported) Lisinopril 20 Mg Tablet, 20 MG PO BID, (Reported) Metoprolol Succinate 100 Mg Tab.er.24h, 100 MG PO DAILY, (Reported) Multivits,Ca,Min/Iron/FA/Lycop 1 Each Tablet, 1 EACH PO DAILY, (Reported) Pantoprazole Sodium 40 Mg Tablet.dr, 40 MG PO HS, (Reported) Potassium Chloride 10 Meq Tablet.er, 10 MEQ PO BID, (Reported) Past Medical/Social/Family Hx Patient Social History Marrital Status: single Living Status: AT [facility] Employed/Student: retired Tobacco Use?: No Use of E-Cig and/or Vaping dev: No Substance use?: No Alcohol Use?: No Pt stated abuse/neglect: No Immunizations Up To Date Influenza Vaccine Up-to-Date: Yes; Up-to-Date Date of Pneumonia Vaccine: Feb 03, 2017 Current Status Advance Directives: Yes Advance Directive Location: Copy placed in chart Communicates: Verbally Primary Language: [place] Preferred Spoken Language: [place] Is interpretation needed?: No Review of Systems Constitutional: no symptoms reported EENTM: see HPI Respiratory: no symptoms reported Cardiovascular: no symptoms reported, edema Gastrointestinal: no symptoms reported Genitourinary: no symptoms reported Musculoskeletal: see HPI Sepsis Event Evaluation Height, Weight, BMI Height: 5'11.00" Weight: 212lbs. 9.0oz. 96.406529si; 27.76 BMI Method:Stated Exam Exam Patient acknowledged, consented, and participated in this virtual visit which was conducted using real time audio/video Vital Signs Date Time Temp Pulse Resp B/P (MAP) Pulse Ox O2 Delivery O2 Flow Rate FiO2 09/16/21 11:05 97 High Flow N/C 2.00 09/16/21 10:00 95 143/58 94 Nasal Cannula 2.00 09/16/21 09:00 97 130/57 93 Nasal Cannula 2.00 09/16/21 08:00 98 High Flow N/C 4.00 09/16/21 08:00 101 155/58 91 Nasal Cannula 2.00 09/16/21 07:43 36.9 09/16/21 07:09 97 High Flow N/C 2.00 09/16/21 07:00 93 09/16/21 07:00 92 150/64 95 Nasal Cannula 2.00 09/16/21 06:36 91 25 146/60 95 Nasal Cannula 2.00 09/16/21 05:36 101 16 149/66 96 Nasal Cannula 2.00 09/16/21 04:36 96 18 164/67 96 Nasal Cannula 4.00 09/16/21 04:06 94 16 159/65 99 Nasal Cannula 4.00 09/16/21 03:45 98 High Flow N/C 4.00 09/16/21 03:06 96 160/74 96 Nasal Cannula 4.00 09/16/21 02:06 92 17 161/65 98 Nasal Cannula 4.00 09/16/21 01:06 96 18 158/59 98 Nasal Cannula 4.00 09/16/21 01:00 93 09/16/21 00:36 89 9 157/60 99 Nasal Cannula 4.00 09/16/21 00:05 36.8 Nasal Cannula 4.00 09/15/21 23:37 100 High Flow N/C 4.00 09/15/21 23:36 89 18 152/67 99 Nasal Cannula 4.00 09/15/21 22:36 89 16 156/60 98 Nasal Cannula 4.00 09/15/21 21:52 96 High Flow N/C 6.00 09/15/21 21:00 85 16 152/67 99 Nasal Cannula 4.00 09/15/21 20:00 99 High Flow N/C 4.00 09/15/21 20:00 84 19 146/56 100 Nasal Cannula 4.00 09/15/21 19:30 36.6 09/15/21 19:30 84 18 148/57 100 Nasal Cannula 4.00 09/15/21 19:00 84 25 141/54 100 Nasal Cannula 8.00 09/15/21 19:00 84 09/15/21 19:00 100 High Flow N/C 8.00 09/15/21 18:00 85 19 139/53 100 Vapotherm 15.00 40.00 09/15/21 17:00 82 11 140/56 100 Vapotherm 15.00 40.00 09/15/21 16:00 36.7 09/15/21 16:00 99 High Flow N/C 8.00 09/15/21 16:00 86 19 147/60 100 Vapotherm 15.00 40.00 09/15/21 15:00 89 12 151/53 100 Vapotherm 15.00 40.00 09/15/21 14:37 100 High Flow N/C 8.00 09/15/21 14:00 93 10 135/51 96 Vapotherm 15.00 40.00 09/15/21 13:00 99 20 150/55 96 Vapotherm 15.00 40.00 09/15/21 13:00 99 09/15/21 12:04 15 98 Vapotherm 15.00 40.00 09/15/21 12:00 96 9 147/62 88 Vapotherm 25.00 35.00 09/15/21 12:00 98 Vapotherm 15.00 40 09/15/21 11:55 37.2 I & O 09/16/21 06:59 Intake Total 2860 ml Output Total 3025 ml Balance -165 ml Height & Weight Height: 5'11.00" Weight: 212lbs. 9.0oz. 96.072829vx; 27.76 BMI Method:Stated General Appearance: No Apparent Distress, WD/WN HEENT: Pharynx Normal Neck: Full Range of Motion, Non Tender, Supple Respiratory: Chest Non Tender, Crackles (IN BASES, DIFFICULT TO AUSCULTATE DUE TO PT MAKING NOISE WITH EXHALE) Cardiovascular: Regular Rate, Rhythm, Normal Peripheral Pulses Capillary Refill: Less Than 3 Seconds Extremity: Normal Capillary Refill, Normal Inspection, Normal Range of Motion, Non Tender, No Calf Tenderness, No Pedal Edema Neurologic/Psychiatric: Alert, Other (ORIENTED TO PERSON, PLACE, FLAT AFFECT) Skin: Normal Color, Warm/Dry Lymphatic: No Adenopathy Results Lab Laboratory Tests 09/15/21 04:11 09/16/21 04:48 Assessment/Plan Assessment/Plan 76 y/o M admitted for STEMI s/p PCI hospital course c/b acute hypoxic respira tory failure likely multifacotiral 2/2 vol overload vs less likely pneumonia. Reviewed CXR and no obvious signs of infiltrate and overall improvement in airspace opacities as well as oxygen requirements -At this time would cont Zosyn for 5 day course for CAP. Pt previous on cefepime for 2 days. -Cont aggressive diuresis -Cont scheduled duonebs -Can consider obtaining procal and lactic acid if concerned for pneumonia. SHELLEY SRIVASTAVA MD Sep 16, 2021 11:22
[2021-09-16] MEDS: MAGNESIUM 1 GM/100 ML IVPB 100 ML IV SCH ×2 (12:00→13:00)
[2021-09-16] MEDS ORDERED: KCL 20 MEQ TAB (K-DUR) PO NR (12:00)
--- NOTE | 2021-09-16 12:27 | Cardiology Progress Note ---
Subjective Date Seen by Provider: Sep 16, 2021 Time Seen by Provider: 12:26 Subjective/Events-last exam Patient was seen at bedside, feeling better, reporting improvement, still having generalized weakness and shortness of breath Review of Systems General: No Chills, No Night Sweats; Fatigue, Malaise; No Appetite, No Other HEENT: No Head Aches, No Visual Changes, No Eye Pain, No Ear Pain, No Dysphasia, No Sinus Congestion, No Post Nasal Drip, No Sore Throat, No Other Pulmonary: Dyspnea; No Cough, No Pleuritic Chest Pain, No Other Cardiovascular: No: Chest Pain, Palpitations, Orthopnea, Paroxysmal Noc. Dyspnea, Edema, Lt Headedness, Other Objective-Cardiology Exam Last Set of Vital Signs Vital Signs 09/15/21 09/16/21 09/16/21 09/16/21 12:00 11:00 11:05 12:02 Temp 37.0 Pulse 91 Resp 34 B/P (MAP) 145/64 Pulse Ox 97 O2 Delivery Nasal Cannula O2 Flow Rate 1.50 FiO2 40 I&O Intake and Output 09/16/21 00:00 Intake Total 2660 ml Output Total 2925 ml Balance -265 ml Intake Oral 2410 ml IV Total 250 ml Output Urine Total 2875 ml Gastric Drainage Total 50 ml General: Alert, Oriented X3, Cooperative HEENT: Atraumatic, PERRLA Neck: Supple, No JVD, No Thyromegaly Lungs: Normal Air Movement, Other (Bilateral rhonchi) Heart: Regular Rate, Normal S1, Normal S2, Other (Systolic murmur at the left sternal border) Abdomen: Normal Bowel Sounds, Soft, No Tenderness, No Hepatosplenomegaly, No Masses Extremities: No Clubbing, No Cyanosis, Normal Pulses, No Tenderness/Swelling, Other (Trace edema) Skin: No Rashes, No Breakdown, No Significant Lesion Neuro: Normal Gait, Normal Speech, Strength at 5/5 X4 Ext, Normal Tone, Sensation Intact Psych/Mental Status: Mental Status NL, Mood NL Results Lab Laboratory Tests 09/16/21 04:48 A/P-Cardiology Admission Diagnosis Acute myocardial infarction Coronary artery disease Diabetes mellitus Hypertension Assessment/Plan Status post acute myocardial infarction with ST elevation occurred on arrival of the ambulance to bring him to [place] requiring emergency cardiac catheterization carried out on September 07, 2021 with stenting of the LAD. Repeat cardiac catheterization was done on September 08, 2021 due to severe persistent chest pain resistant to nitroglycerin, patent stents with moderate disease, small vessel disease. Continue on aspirin and Plavix, continue to monitor Status postacute respiratory failure, currently feeling better, maintained on nasal cannula. Acute on chronic renal failure, probably secondary to aggressive diuresis. Has underlying stage III kidney disease Renal functions are better at this time. Continue to monitor Anemia, status post transfusion, maintained on aspirin and Plavix. Continue to monitor Pneumonia, managed by primary care team. Sepsis, elevated lactic acid. Could be secondary to acute myocardial infarction heart failure Congestive heart failure, acute left ventricular systolic dysfunction, ischemic cardiomyopathy Echocardiogram showed diffuse left ventricular hypokinesia with ejection fraction 30 to 35%, biatrial enlargement, pulmonary hypertension with PA pressure 50 to 55 mmHg, heavily calcified mitral valve with mild mitral regurgitation, calcified aortic valve with no significant stenosis Clinically better at this time. Continue to monitor Coronary artery disease history of stent to the LAD using Promus 2.2512 mm done in July 2015, at that time he had 50 percent right coronary artery stenosis that was treated conservatively. Cardiac catheterization March 10, 2017 revealing 90% stenosis at the mid circumflex artery, 60% stenosis proximally, successful balloon angioplasty then stent deployment to the mid circumflex artery using 2.523 mm Xience Alpine to the mid artery, the proximal portion was improved to 20% residual with balloon angioplasty. Patent stent in the LAD, mild disease in the right coronary artery nonobstructive disease. Cardiac catheterization was done on September 07, 2021 showing severe ostial and proximal LAD successful angioplasty and stenting using wendi point stent 2.75 x 28 expanded to 3 mm with excellent results. Mid LAD has moderate stenosis distal LAD has severe stenosis, there is moderate stenosis in the mid circumflex t coronary artery and mild to moderate stenosis in the mid right coronary artery Repeat cardiac catheterization was done on September 08, 2021 due to severe chest pain showing patent stent with mild to moderate disease and small vessel disease. Nonobstructive disease Malignant hypertension, resistant to multiple medication, continue to monitor blood pressure after starting all his medications Episodes of dizziness, lightheaded at home. We will monitor his blood pressure response to blood pressure medication Renal artery stenosis-angiogram done March 10, 2017 revealed severe right renal artery stenosis. Underwent renal angiogram with stenting to the right renal artery using Digital Lifeboat ELITE [id number] with excellent results minimal residual stenosis in March 17, 2017. Continue to monitor. Intolerance to clonidine secondary to severe dizziness. Peripheral vascular disease- Angiogram done March 10, 2017 revealed moderate disease to SFA. Was unable to visualize arteries below the knee secondary to limiting contrast exposure. Peripheral angiogram on March 24, 2017 revealing severe left iliac artery stenosis, Balloon angioplasty and deployment OMNILINK ELITE [id number] expanded to 7.3 with excellent results, mild to moderate disease in the left lower extremity down to the trifurcation. Patent stent in the right iliac artery with [id number] disease down to the trifurcation. Had abnormal HALLIE in August 2017. Complaining of increased claudication pain, HALLIE is worse in May. Did complex intervention in July 2019 with severe disease and deployment of 3 stents of the left SFA and popliteal artery using absolute Pro 6 x 60 followed by 6 x 80 and distally 6 x 100 with excellent results. Moderate to severe stenosis at the midright SFA with moderate disease at the trifurcation, patent stent in the right renal artery, mild disease at the left renal artery, heavily calcified abdominal aorta, complication with disruption of the long 6 Macedonian sheath that require significant maneuvering to remove the full catheter. Excellent results. ABIs done in September 2019, denies any increased claudication pain, will continue to monitor. Baseline EKG abnormality with sinus rhythm, first-degree AV block, left ventricular hypertrophy pattern early repolarization Acute on chronic renal insufficiency, history of chronic kidney disease stage III. Deterioration in renal function due to aggressive diuresis. Continue to monitor History of stroke over 20 years ago with mild residual facial droop and occasional slurred speech, no other residual weakness Hyperlipidemia, maintained on Lipitor 10 mg daily and niacin daily, controlled. Continue to monitor. Diabetes mellitus, hold Metformin and I recommend discontinuation of Metformin, followed and managed by primary care physician Arthritis, degenerative disc disease, back pain and lower extremity pain, possible referral for orthopedic surgeon History of tobaccoism stopped over 20 years ago. DEYSI GREY MD Sep 16, 2021 12:27
[2021-09-16] MEDS: FLUCONAZOLE 100 MG/50 ML 50 ML IV SCH (14:39)
[2021-09-16 20:09] VITALS: BP 158/68
[2021-09-17] MEDS: inSUlin ASPART (NovoLOG) 1 UNIT/0.01 ML (CHARGE PER UNIT) SQ SCH ×5 (00:03→23:31)
[2021-09-17] MEDS: RT-ALBUTEROL/IPRATROPIUM 3 ML (DUONEB) VIAL INH SCH ×4 (02:22→20:29)
[2021-09-17] MEDS: POTASSIUM CL 10MEQ/50ML IVPB 50 ML IV SCH (04:37)
[2021-09-17] MEDS: SUCRALFATE 1 GM (CARAFATE) TAB PO SCH ×4 (05:03→20:44)
[2021-09-17] MEDS: hydrALAZINE (APRESOLINE) 25 MG TAB PO SCH ×3 (05:03→22:51)
[2021-09-17 05:52] LABS: BASOPHILS # (AUTO) 0.1 10^3/uL (0.0-0.1); BASOPHILS % (AUTO) 1 % (0-10); EOSINOPHILS # (AUTO) 0.8 10^3/uL (0.0-0.3); EOSINOPHILS % (AUTO) 7 % (0-10); HEMATOCRIT 32 % (40-54); HEMOGLOBIN 9.8 g/dL (13.3-17.7); LYMPHOCYTES # (AUTO) 1.1 10^3/uL (1.0-4.0); LYMPHOCYTES % (AUTO) 9 % (12-44); MEAN CORPUSCULAR HEMOGLOBIN 26 pg (25-34); MEAN CORPUSCULAR HGB CONC 31 g/dL (32-36); MEAN CORPUSCULAR VOLUME 83 fL (80-99); MEAN PLATELET VOLUME 9.8 fL (9.0-12.2); MONOCYTES # (AUTO) 1.3 10^3/uL (0.0-1.0); MONOCYTES % (AUTO) 11 % (0-12); NEUTROPHILS # (AUTO) 8.9 10^3/uL (1.8-7.8); NEUTROPHILS % (AUTO) 72 % (42-75); PLATELET COUNT 509 10^3/uL (130-400); WHITE BLOOD COUNT 12.3 10^3/uL (4.3-11.0)
[2021-09-17] MEDS: PIPERACILLIN SODIUM/TAZOBACTAM 4.5 GM in NS (IVPB) 100 ML IV SCH ×3 (06:00→22:53)
[2021-09-17 06:06] LABS: ALBUMIN 3.3 GM/DL (3.2-4.5)
[2021-09-17 06:07] LABS: POTASSIUM 3.4 MMOL/L (3.6-5.0)
[2021-09-17 06:08] LABS: CALCIUM 8.9 MG/DL (8.5-10.1)
[2021-09-17 06:09] LABS: TOTAL PROTEIN 6.4 GM/DL (6.4-8.2)
[2021-09-17 06:11] LABS: BILIRUBIN,TOTAL 0.8 MG/DL (0.1-1.0)
[2021-09-17 06:13] LABS: CREATININE SERUM 1.48 MG/DL (0.60-1.30)
[2021-09-17 06:16] LABS: MAGNESIUM 1.9 MG/DL (1.6-2.4)
[2021-09-17] MEDS: MAGNESIUM 1 GM/100 ML IVPB 100 ML IV SCH (06:23)
[2021-09-17] MEDS: KCL 20 MEQ TAB (K-DUR) PO SCH (06:25)
[2021-09-17] MEDS: polyethylene glycoL POWDER 17 GM (MIRALAX) PACK PO SCH ×2 (08:55→20:45)
[2021-09-17] MEDS: ISOSORBIDE MONONITRATE 30 MG (IMDUR) TAB PO SCH (08:56)
[2021-09-17] MEDS: FUROSEMIDE 40 MG/4 ML INJ (LASIX) IVP SCH (08:56)
[2021-09-17] MEDS: meTOprolol SUCCINATE 100 MG (TOPROL XL) TAB PO SCH (08:56)
[2021-09-17] MEDS: CLOPIDOGREL 75 MG (PLAVIX) TABLET PO SCH (08:56)
[2021-09-17] MEDS: PANTOPRAZOLE 40 MG (PROTONIX) VIAL IV SCH (08:56)
[2021-09-17] MEDS: ASPIRIN E.C. 81 MG (ECOTRIN) TAB PO SCH (08:56)
[2021-09-17] MEDS: SIMETHICONE 80 MG (MYLICON) CHEW PO SCH ×4 (08:57→20:44)
[2021-09-17] MEDS ORDERED: KCL 20 MEQ TAB (K-DUR) PO ONE (09:00)
--- NOTE | 2021-09-17 09:11 | Progress Note ---
Subjective Subjective Date Seen by Provider: Sep 17, 2021 Time Seen by Provider: 09:00 PT REPORTS THAT HE IS FEELING MUCH BETTER. TODAY WHEN WE WERE DISCUSSING HIM GETTING OUT OF THE HOSPITAL, HE REPORTED THAT HE WOULD DO WHAT WAS SUGGESTED, HE THEN STATES HE WOULD LIKE TO MOVE INTO THE MAIN BUILDING AT [facility] BUT IS WORRIED ABOUT HIS DOG SO HE WOULD PAY FOR THE COTTAGE WELL SO HE COULD KEEP HIS DOG. Review of Systems General: No Chills, No Night Sweats; Fatigue, Malaise, Appetite (IMPROVED); No Other HEENT: No Head Aches, No Visual Changes, No Eye Pain, No Ear Pain, No Dysphasia, No Sinus Congestion, No Post Nasal Drip, No Sore Throat, No Other Pulmonary: Dyspnea, Cough; No Pleuritic Chest Pain, No Other Cardiovascular: No: Chest Pain, Palpitations, Orthopnea, Paroxysmal Noc. Dyspnea, Edema, Lt Headedness, Other Gastrointestinal: Other (BLOATING IMPROVED); No: Nausea, Vomiting, Abdominal Pain Neurological: Weakness, Confusion (CHRONIC) All Other Systems Reviewed All Other Systems Reviewed: Yes Objective Exam Vital Signs Vital Signs Date Time Temp Pulse Resp B/P (MAP) Pulse Ox O2 Delivery O2 Flow Rate FiO2 09/17/21 08:13 94 High Flow N/C 1.50 09/17/21 07:00 93 09/17/21 03:39 36.9 89 20 166/70 94 Nasal Cannula 1.50 09/17/21 02:22 93 High Flow N/C 1.50 09/17/21 01:00 80 09/16/21 23:18 36.5 92 20 152/67 93 Nasal Cannula 1.50 09/16/21 20:09 97 92 09/16/21 19:48 36.1 97 20 158/68 92 Nasal Cannula 1.50 09/16/21 19:15 High Flow N/C 1.50 09/16/21 19:00 96 09/16/21 18:40 95 High Flow N/C 2.00 09/16/21 15:50 37.0 91 20 157/70 95 Nasal Cannula 1.50 09/16/21 14:37 97 High Flow N/C 2.00 09/16/21 14:20 90 09/16/21 12:02 37.0 Nasal Cannula 1.50 09/16/21 12:00 93 High Flow N/C 1.50 09/16/21 12:00 37.0 09/16/21 11:05 97 High Flow N/C 2.00 09/16/21 11:00 91 34 145/64 90 Nasal Cannula 2.00 09/16/21 10:00 95 143/58 94 Nasal Cannula 2.00 l I & O 09/17/21 07:00 Intake Total 1530 ml Output Total 2150 ml Balance -620 ml General Appearance: No Apparent Distress, WD/WN Eyes: Bilateral Eye PERRL HEENT: Pharynx Normal, Other (LEFT LOWER EYELID IRRITATED AND PINK) Neck: Full Range of Motion, Non Tender, Supple Respiratory: Chest Non Tender, Crackles (IMPROVED FROM YESTERDAY- PT STILL MAKING NOISES ON AUSCULTATION SO THAT DECREASES THE SENSITIVITY OF THE EXAM) Cardiovascular: Regular Rate, Rhythm Gastrointestinal: Normal Bowel Sounds, Non Tender, Distended (BUT SOFTER THAN YESTERDAY), Other (TYMPANITIC WITH BROWN/ALMONTE OUTPUT FROM NG TUBE) Extremity: Normal Capillary Refill, Normal Inspection, Normal Range of Motion, Non Tender, No Calf Tenderness, No Pedal Edema Neurologic/Psychiatric: Alert, Oriented x3 Skin: Normal Color, Warm/Dry Lymphatic: No Adenopathy Results Lab Laboratory Tests 09/16/21 11:55: Glucometer 257H 09/16/21 15:38: Glucometer 245H 09/16/21 20:29: Glucometer 206H 09/16/21 23:21: Glucometer 225H 09/17/21 04:59: Glucometer 206H 09/17/21 05:20: White Blood Count 12.3H, Red Blood Count 3.83L, Hemoglobin 9.8L, Hematocrit 32L, Mean Corpuscular Volume 83, Mean Corpuscular Hemoglobin 26, Mean Corpuscular Hemoglobin Concent 31L, Red Cell Distribution Width 13.6, Platelet Count 509H, Mean Platelet Volume 9.8, Immature Granulocyte % (Auto) 1, Neutrophils (%) (Auto) 72, Lymphocytes (%) (Auto) 9L, Monocytes (%) (Auto) 11, Eosinophils (%) (Auto) 7, Basophils (%) (Auto) 1, Neutrophils # (Auto) 8.9H, Lymphocytes # (Auto) 1.1, Monocytes # (Auto) 1.3H, Eosinophils # (Auto) 0.8H, Basophils # (Auto) 0.1, Immature Granulocyte # (Auto) 0.1, Sodium Level 136, Potassium Level 3.4L, Chloride Level 96L, Carbon Dioxide Level 24, Anion Gap 16H, Blood Urea Nit rogen 26H, Creatinine 1.48H, Estimat Glomerular Filtration Rate 48, BUN/Creatinine Ratio 18, Glucose Level 213H, Calcium Level 8.9, Corrected Calcium 9.5, Magnesium Level 1.9, Total Bilirubin 0.8, Aspartate Amino Transf (AST/SGOT) 30, Alanine Aminotransferase (ALT/SGPT) 28, Alkaline Phosphatase 54, Total Protein 6.4, Albumin 3.3 Microbiology 09/14/21 Blood Culture - Preliminary, Resulted No growth 09/14/21 Urine Culture - Final, Complete Gardnerella vaginalis Staph, Coag Neg (MOTOR TESTER) Strep anginosus Assessment/Plan Assessment/Plan Admission Dx CHEST PAIN STEMI DYSPNEA CHRONIC HYPERTENSION ELEVATED TROPONIN PNEUMONIA DIABETES MELLITUS ESOPHAGEAL REFLUX VASCULAR DEMENTIA Assessment and Plan CHEST PAIN STEMI DYSPNEA CHRONIC HYPERTENSION ELEVATED TROPONIN PNEUMONIA RESPIRATORY FAILURE DIABETES MELLITUS ESOPHAGEAL REFLUX RENAL FAILURE ANEMIA VASCULAR DEMENTIA ABDOMINAL DISTENTION CONSTIPATION ANXIETY UTI - GARDNERELLA VAGINALIS CHEST PAIN WITH DYSPNEA AND STEMI - MANAGED BY DR. GREY - SEE HIS PROCEDURE NOTE FROM HEART CATH ON ADMISSION - SMALL VESSEL DISEASE, AND DISEASE OF LAD. - MONITOR SYMPTOMS. - PT ON HYDRALAZINE UTI - GARDNERELLA VAGINALIS - STARTED ON FLAGYL TODAY CHRONIC HYPERTENSION - RESTARTED ANTIHYPERTENSIVE MEDICATIONS. RENAL FAILURE - IMPROVED, CONTINUE TO MONITOR RENAL FUNCTION - WT DOWN ANOTHER 1.5 KG (DOWN ABOUT 14KG) ANEMIA - STABLE AT THIS TIME AT 8.5, PT GIVEN BLOOD 09/10/21. PNEUMONIA WITH RESPIRATORY FAILURE - DEFER TO EICU PULMONOLOGY. - PT WAS ON CEFEPIME - REGIMEN COMPLETED, STARTED ON ZOSYN 09/15/21 - MONITOR SERIAL CXR'S - PT IS DNR/DNI - PT HAS DECLINED THIS SITE LEASING AGENT AND THE NURSING STAFF FROM REACHING OUT TO HIS DTR. - PT WEANED DOWN TO VAPOTHERM AND THEN MOVED TO 2.5L NC, CONTINUE TO WEAN DOWN ABLE ANXIETY - PRN ATIVAN ORDERED DIABETES MELLITUS - FSBS, SLIDING SCALE INSULIN ESOPHAGEAL REFLUX - CONTINUE WITH PPI THERAPY. VASCULAR DEMENTIA - SUPPORTIVE CARE PT STILL WEAK, RECOMMENDATION FOR CORRECTION FOR ABOUT 2 WEEKS FOR STRENGTHENING - PT IS AGREEABLE TO THIS RECOMMENDATION AND HE STATES " I JUST WANT TO GET BETTER AND GO HOME QUICK I CAN SINCE I HAVE A DOG". Admission Dx CHEST PAIN STEMI DYSPNEA CHRONIC HYPERTENSION ELEVATED TROPONIN PNEUMONIA DIABETES MELLITUS ESOPHAGEAL REFLUX VASCULAR DEMENTIA Clinical Quality Measures Admission Status Admission Dx CHEST PAIN STEMI DYSPNEA CHRONIC HYPERTENSION ELEVATED TROPONIN PNEUMONIA DIABETES MELLITUS ESOPHAGEAL REFLUX VASCULAR DEMENTIA ROSANNE PAN MD Sep 17, 2021 09:11
--- NOTE | 2021-09-17 09:28 | Cardiology Progress Note ---
Subjective Date Seen by Provider: Sep 17, 2021 Time Seen by Provider: 08:50 Subjective/Events-last exam Patient sitting up in bed, denies any chest pain or increased dyspnea. Review of Systems General: No Chills, No Night Sweats; Fatigue; No Malaise, No Appetite, No Other HEENT: No Head Aches, No Visual Changes, No Eye Pain, No Ear Pain, No Dysphasia, No Sinus Congestion, No Post Nasal Drip, No Sore Throat, No Other Cardiovascular: No: Chest Pain, Palpitations, Orthopnea, Paroxysmal Noc. Dyspnea, Edema, Lt Headedness, Other Objective-Cardiology Exam Last Set of Vital Signs Vital Signs 09/15/21 09/17/21 12:00 12:31 Temp 37.1 Pulse 94 Resp 18 B/P (MAP) 146/67 Pulse Ox 95 O2 Delivery Nasal Cannula O2 Flow Rate 1.50 FiO2 40 I&O Intake and Output 09/17/21 00:00 Intake Total 1730 ml Output Total 2300 ml Balance -570 ml Intake Oral 1730 ml Output Urine Total 2300 ml General: Alert, Oriented X3, Cooperative HEENT: Atraumatic, PERRLA Neck: Supple, No JVD, No Thyromegaly Lungs: Normal Air Movement, Other (Bilateral rhonchi) Heart: Regular Rate, Normal S1, Normal S2, Other (Systolic murmur at the left sternal border) Abdomen: Normal Bowel Sounds, Soft, No Tenderness, No Hepatosplenomegaly, No Masses Extremities: No Clubbing, No Cyanosis, Normal Pulses, No Tenderness/Swelling, Other (Trace edema) Skin: No Rashes, No Breakdown, No Significant Lesion Neuro: Normal Gait, Normal Speech, Strength at 5/5 X4 Ext, Normal Tone, Sensation Intact Psych/Mental Status: Mental Status NL, Mood NL Results Lab Laboratory Tests 09/17/21 05:20 A/P-Cardiology Admission Diagnosis Acute myocardial infarction Coronary artery disease Diabetes mellitus Hypertension Assessment/Plan Status post acute myocardial infarction with ST elevation occurred on arrival of the ambulance to bring him to [facility] requiring emergency cardiac catheterization carried out on September 07, 2021 with stenting of the LAD. Repeat cardiac catheterization was done on September 08, 2021 due to severe per sistent chest pain resistant to nitroglycerin, patent stents with moderate disease, small vessel disease. Continue on aspirin and Plavix, continue to monitor Status post acute respiratory failure, currently feeling better, maintained on nasal cannula. Acute on chronic renal failure, probably secondary to aggressive diuresis. Has underlying stage III kidney disease Renal functions are better at this time. Continue to monitor Anemia, status post transfusion, maintained on aspirin and Plavix. Continue to monitor Pneumonia, managed by primary care team. Sepsis, elevated lactic acid. Could be secondary to acute myocardial infarction heart failure Congestive heart failure, acute left ventricular systolic dysfunction, ischemic cardiomyopathy Echocardiogram showed diffuse left ventricular hypokinesia with ejection fraction 30 to 35%, biatrial enlargement, pulmonary hypertension with PA pressure 50 to 55 mmHg, heavily calcified mitral valve with mild mitral regurgitation, calcified aortic valve with no significant stenosis Clinically better at this time. Continue to monitor Coronary artery disease history of stent to the LAD using Promus 2.2512 mm done in July 2015, at th at time he had 50 percent right coronary artery stenosis that was treated conservatively. Cardiac catheterization March 10, 2017 revealing 90% stenosis at the mid circumflex artery, 60% stenosis proximally, successful balloon angioplasty then stent deployment to the mid circumflex artery using 2.523 mm Xience Alpine to the mid artery, the proximal portion was improved to 20% residual with balloon angioplasty. Patent stent in the LAD, mild disease in the right coronary artery nonobstructive disease. Cardiac catheterization was done on September 07, 2021 showing severe ostial and proximal LAD successful angioplasty and stenting using wendi point stent 2.75 x 28 expanded to 3 mm with excellent results. Mid LAD has moderate stenosis distal LAD has severe stenosis, there is moderate stenosis in the mid circumflex t coronary artery and mild to moderate stenosis in the mid right coronary artery Repeat cardiac catheterization was done on September 08, 2021 due to severe chest pain showing patent stent with mild to moderate disease and small vessel disease. Nonobstructive disease Malignant hypertension, resistant to multiple medication, continue to monitor blood pressure Episodes of dizziness, lightheaded at home. We will monitor his blood pressure response to blood pressure medication Renal artery stenosis-angiogram done March 10, 2017 revealed severe right renal artery stenosis. Underwent renal angiogram with stenting to the right renal artery using HERCULINK ELITE [id number] with excellent results minimal residual stenosis in March 17, 2017. Continue to monitor. Intolerance to clonidine secondary to severe dizziness. Peripheral vascular disease- Angiogram done March 10, 2017 revealed moderate disease to SFA. Was unable to visualize arteries below the knee secondary to limiting contrast exposure. Peripheral angiogram on March 24, 2017 revealing severe left iliac artery stenosis, Balloon angioplasty and deployment OMNILINK ELITE 7X39 expanded to 7.3 with excellent results, mild to moderate disease in the left lower extremity down to the trifurcation. Patent stent in the right iliac artery with [id number] disease down to the trifurcation. Had abnormal HALLIE in August 2017. Complaining of increased claudication pain, HALLIE is worse in May. Did complex intervention in July 2019 with severe disease and deployment of 3 stents of the left SFA and popliteal artery using absolute Pro 6 x 60 followed by 6 x 80 and distally 6 x 100 with excellent results. Moderate to severe stenosis at the midright SFA with moderate disease at the trifurcation, patent stent in the right renal artery, mild disease at the left renal artery, heavily calcified abdominal aorta, complication with disruption of the long 6 [place] sheath that require significant maneuvering to remove the full catheter. Excellent results. ABIs done in September 2019, denies any increased claudication pain, will continue to monitor. Baseline EKG abnormality with sinus rhythm, first-degree AV block, left ventricular hypertrophy pattern early repolarization Acute on chronic renal insufficiency, history of chronic kidney disease stage II I. Deterioration in renal function due to aggressive diuresis. Renal function improved. Continue to monitor History of stroke over 20 years ago with mild residual facial droop and occasional slurred speech, no other residual weakness Hyperlipidemia, maintained on Lipitor 10 mg daily and niacin daily, controlled. Continue to monitor. Diabetes mellitus, hold Metformin and I recommend discontinuation of Metformin, followed and managed by primary care physician Arthritis, degenerative disc disease, back pain and lower extremity pain, possible referral for orthopedic surgeon History of tobaccoism stopped over 20 years ago. Supervisory-Addendum Brief Supervisory Addendum Participated in pt care: history, MDM, physical Personally performed: exam, history, MDM Care discussed with: MARIA A Results interpretation: Verified all documentation Notes: Patient was seen and evaluated with Sofía, examination performed, management plan was discussed, agree with the current scribed note, I made few changes to the note using Italic font Patient was seen at bedside laying down comfortably Anterior nasal cannula Good urine output, continue to monitor renal function Slow and steady improvement. SOFÍA ADAMS Sep 17, 2021 09:28 DEYSI GREY MD Sep 17, 2021 14:39
[2021-09-17] MEDS: metroNIDAZOLE 500 MG (FLAGYL) TAB PO SCH ×3 (10:01→20:44)
--- NOTE | 2021-09-17 12:06 | Physical Therapy Daily Note ---
PT Daily Note-Current Subjective Patient was in bed upon arrival and initially denied to get out bed due to pain. Patient was encouraged to get up out of bed and into chair and consented to rest of treatment with a good attitude. Pain Location Body Site: Abdomen Comment: No numerical value given Mental Status Patient Orientation: Person, Place, Situation Attachments: Oxygen Transfers SCALE: Activities may be completed with or without assistive devices. 8-[id number] completes the activity by him/herself with no assistance from a helper. 5-Set-up or Clean-up Assistance-helper sets up or cleans up; patient completes activity. [place] assists only prior to or following the activity. 4-Supervision or Touching Assistance-helper provides verbal cues and/or touching/steadying and/or contact guard assistance as patient completes activity. Assistance may be provided throughout the activity or intermittently. 3-Partial/Moderate Assistance-helper does LESS THAN HALF the effort. [place] lifts, holds or supports trunk or limbs, but provides less than half the effort. 2-Substantial/Maximal Assistance-helper does MORE THAN HALF the effort. [place] lifts or holds trunk or limbs and provides more than half the effort. 8-[id number]-[id number] does ALL the effort. Patient does none of the effort to complete the activity. Or, the assistance of 2 or more helpers is required for the patient to complete the activity. If activity was not attempted, code reason: 7-Patient Refused. 9-Not Applicable-not attempted and the patient did not perform the activity before the current illness, exacerbation or injury. 10-Not Attempted due to Environmental Limitations-(lack of equipment, weather restraints, etc.). 88-Not Attempted due to Medical Conditions or Safety Concerns. Roll Left & Right (QC): 3 Lying to Sitting/Side of Bed(Q: 2 Sit to Stand (QC): 2 Chair/Kdz-lb-Ellpw Xfer(QC): 1 Weight Bearing Full Weight Bearing Full Weight Bearing Gait Training Does the Patient Walk?: No and Walking Goal NOT indicated Exercises Seated Therapy Exercises: Ankle pumps, Long arc quads Seated Reps: 15 Treatments transfers, mobility Assessment Current Status: Poor Progress Patient demonstrated weakness in LE and required a dependent assist with stand- pivot transfer. PT Residential Goals Residential Goals PT Workforce Management Consultant Goals Time Frame: Sep 27, 2021 Roll Left & Right (QC): 3 Sit to Lying (QC): 3 Lying-Sitting on Side/Bed(QC): 3 Sit to Stand (QC): 3 Chair/Vkk-aq-Dldzf Xfer(QC): 3 Walk 10 feet (QC): 3 PT Plan Problem List Problem List: Activity Tolerance, Functional Strength, Safety, Balance, Gait, Transfer, Bed Mobility, ROM Treatment/Plan Treatment Plan: Continue Plan of Care Treatment Plan: Bed Mobility, Education, Functional Activity Lona, Functional Strength, Gait, Safety, Therapeutic Exercise, Transfers Treatment Duration: Sep 27, 2021 Frequency: 6 times per week Estimated Hrs Per Day: .25 hour per day Safety Risks/Education Patient Education: Transfer Techniques, Correct Positioning, Safety Issues Teaching Recipient: Patient Teaching Methods: Demonstration, Discussion Response to Teaching: Reinforcement Needed Time/GCodes Time In: 1123 Time Out: 1133 Total Billed Treatment Time: 10 Total Billed Treatment 1 visit FA 10ANTOINE SIMON PT Sep 17, 2021 12:06
[2021-09-17] MEDS: FLUCONAZOLE 100 MG/50 ML 50 ML IV SCH (15:08)
[2021-09-17 16:00] VITALS: BP 175/73
[2021-09-17] MEDS: LABETALOL HCL 20 MG/4 ML VIAL IV PRN (16:22)
[2021-09-17 19:33] VITALS: BP 149/66
[2021-09-17 23:22] VITALS: BP 162/64
[2021-09-18] MEDS: RT-ALBUTEROL/IPRATROPIUM 3 ML (DUONEB) VIAL INH SCH ×3 (02:01→15:00)
[2021-09-18 03:56] VITALS: BP 150/62
[2021-09-18 05:51] LABS: BASOPHILS # (AUTO) 0.1 10^3/uL (0.0-0.1); BASOPHILS % (AUTO) 1 % (0-10); EOSINOPHILS # (AUTO) 0.7 10^3/uL (0.0-0.3); EOSINOPHILS % (AUTO) 6 % (0-10); HEMATOCRIT 31 % (40-54); HEMOGLOBIN 9.5 g/dL (13.3-17.7); LYMPHOCYTES # (AUTO) 1.2 10^3/uL (1.0-4.0); LYMPHOCYTES % (AUTO) 11 % (12-44); MEAN CORPUSCULAR HEMOGLOBIN 25 pg (25-34); MEAN CORPUSCULAR HGB CONC 30 g/dL (32-36); MEAN CORPUSCULAR VOLUME 83 fL (80-99); MEAN PLATELET VOLUME 9.5 fL (9.0-12.2); MONOCYTES # (AUTO) 1.4 10^3/uL (0.0-1.0); MONOCYTES % (AUTO) 13 % (0-12); NEUTROPHILS # (AUTO) 7.5 10^3/uL (1.8-7.8); NEUTROPHILS % (AUTO) 68 % (42-75); PLATELET COUNT 517 10^3/uL (130-400); WHITE BLOOD COUNT 10.9 10^3/uL (4.3-11.0)
[2021-09-18 06:03] LABS: ALBUMIN 3.2 GM/DL (3.2-4.5); POTASSIUM 3.4 MMOL/L (3.6-5.0)
[2021-09-18 06:04] LABS: CALCIUM 8.7 MG/DL (8.5-10.1)
[2021-09-18 06:06] LABS: TOTAL PROTEIN 6.1 GM/DL (6.4-8.2)
[2021-09-18 06:07] LABS: BILIRUBIN,TOTAL 0.6 MG/DL (0.1-1.0)
[2021-09-18] MEDS: inSUlin ASPART (NovoLOG) 1 UNIT/0.01 ML (CHARGE PER UNIT) SQ SCH ×2 (06:08→11:36)
[2021-09-18 06:09] LABS: CREATININE SERUM 1.44 MG/DL (0.60-1.30)
[2021-09-18 06:12] LABS: MAGNESIUM 1.7 MG/DL (1.6-2.4)
[2021-09-18] MEDS ORDERED: KCL 20 MEQ TAB (K-DUR) PO ONE (06:15)
[2021-09-18] MEDS: MAGNESIUM 1 GM/100 ML IVPB 100 ML IV SCH ×3 (06:15→07:42)
[2021-09-18] MEDS: POTASSIUM CL 10MEQ/50ML IVPB 50 ML IV SCH (06:15)
[2021-09-18] MEDS: KCL 20 MEQ TAB (K-DUR) PO SCH (06:15)
[2021-09-18] MEDS: SUCRALFATE 1 GM (CARAFATE) TAB PO SCH ×3 (06:33→15:58)
[2021-09-18] MEDS: PIPERACILLIN SODIUM/TAZOBACTAM 4.5 GM in NS (IVPB) 100 ML IV SCH ×2 (06:33→14:46)
[2021-09-18] MEDS: hydrALAZINE (APRESOLINE) 25 MG TAB PO SCH ×2 (06:35→13:42)
--- NOTE | 2021-09-18 08:17 | Cardiology Progress Note ---
Subjective Date Seen by Provider: Sep 18, 2021 Time Seen by Provider: 08:16 Subjective/Events-last exam Patient in bed, c/o epigastric pain. Review of Systems General: No Chills, No Night Sweats, No Fatigue, No Malaise, No Appetite, No Other HEENT: No Head Aches, No Visual Changes, No Eye Pain, No Ear Pain, No Dysphasia, No Sinus Congestion, No Post Nasal Drip, No Sore Throat, No Other Pulmonary: No Dyspnea, No Cough, No Pleuritic Chest Pain, No Other Cardiovascular: No: Chest Pain, Palpitations, Orthopnea, Paroxysmal Noc. Dyspnea, Edema, Lt Headedness, Other Objective-Cardiology Exam Last Set of Vital Signs Vital Signs 09/15/21 09/18/21 12:00 08:24 Temp 37.4 Pulse 92 Resp 20 B/P (MAP) 142/64 (90) Pulse Ox 96 O2 Delivery High Flow N/C O2 Flow Rate 1.50 FiO2 40 I&O Intake and Output 09/17/21 23:59 Intake Total 1660 ml Output Total 3275 ml Balance -1615 ml Intake Oral 1410 ml IV Total 250 ml Output Urine Total 3275 ml # Bowel Movements 4 General: Alert, Oriented X3, Cooperative HEENT: Atraumatic, PERRLA Neck: Supple, No JVD, No Thyromegaly Lungs: Clear to Auscultation, Normal Air Movement Heart: Regular Rate, Normal S1, Normal S2, Other (Systolic murmur at the left sternal border) Abdomen: Normal Bowel Sounds, Soft, No Tenderness, No Hepatosplenomegaly, No Masses Extremities: No Clubbing, No Cyanosis, Normal Pulses, No Tenderness/Swelling, Other (Trace edema) Skin: No Rashes, No Breakdown, No Significant Lesion Neuro: Normal Gait, Normal Speech, Strength at 5/5 X4 Ext, Normal Tone, Sensation Intact Psych/Mental Status: Mental Status NL, Mood NL Results Lab Laboratory Tests 09/18/21 05:26 A/P-Cardiology Admission Diagnosis Acute myocardial infarction Coronary artery disease Diabetes mellitus Hypertension Assessment/Plan Status post acute myocardial infarction with ST elevation occurred on arrival of the ambulance to bring him to [place] requiring emergency cardiac catheterization carried out on September 07, 2021 with stenting of the LAD. Repeat cardiac catheterization was done on September 08, 2021 due to severe per sistent chest pain resistant to nitroglycerin, patent stents with moderate disease, small vessel disease. Continue on aspirin and Plavix, continue to monitor Status post acute respiratory failure, currently feeling better, maintained on nasal cannula. Acute on chronic renal failure, probably secondary to aggressive diuresis. Has underlying stage III kidney disease Renal functions are better at this time. Continue to monitor Anemia, status post transfusion, maintained on aspirin and Plavix. Continue to monitor Pneumonia, managed by primary care team. Sepsis, elevated lactic acid. Could be secondary to acute myocardial infarction heart failure Congestive heart failure, acute left ventricular systolic dysfunction, ischemic cardiomyopathy Echocardiogram showed diffuse left ventricular hypokinesia with ejection fraction 30 to 35%, biatrial enlargement, pulmonary hypertension with PA pressure 50 to 55 mmHg, heavily calcified mitral valve with mild mitral regurgitation, calcified aortic valve with no significant stenosis Clinically better at this time. Continue to monitor Coronary artery disease history of stent to the LAD using Promus 2.2512 mm done in July 2015, at th at time he had 50 percent right coronary artery stenosis that was treated conservatively. Cardiac catheterization March 10, 2017 revealing 90% stenosis at the mid circumflex artery, 60% stenosis proximally, successful balloon angioplasty then stent deployment to the mid circumflex artery using 2.523 mm Xience Alpine to the mid artery, the proximal portion was improved to 20% residual with balloon angioplasty. Patent stent in the LAD, mild disease in the right coronary artery nonobstructive disease. Cardiac catheterization was done on September 07, 2021 showing severe ostial and proximal LAD successful angioplasty and stenting using wendi point stent 2.75 x 28 expanded to 3 mm with excellent results. Mid LAD has moderate stenosis distal LAD has severe stenosis, there is moderate stenosis in the mid circumflex t coronary artery and mild to moderate stenosis in the mid right coronary artery Repeat cardiac catheterization was done on September 08, 2021 due to severe chest pain showing patent stent with mild to moderate disease and small vessel disease. Nonobstructive disease Malignant hypertension, resistant to multiple medication, continue to monitor blood pressure Episodes of dizziness, lightheaded at home. We will monitor his blood pressure response to blood pressure medication Renal artery stenosis-angiogram done March 10, 2017 revealed severe right renal artery stenosis. Underwent renal angiogram with stenting to the right renal artery using H-careULINK ELITE [id number] with excellent results minimal residual stenosis in March 17, 2017. Continue to monitor. Intolerance to clonidine secondary to severe dizziness. Peripheral vascular disease- Angiogram done March 10, 2017 revealed moderate disease to SFA. Was unable to visualize arteries below the knee secondary to limiting contrast exposure. Peripheral angiogram on March 24, 2017 revealing severe left iliac artery stenosis, Balloon angioplasty and deployment OMNILINK ELITE 7X39 expanded to 7.3 with excellent results, mild to moderate disease in the left lower extremity down to the trifurcation. Patent stent in the right iliac artery with [id number] disease down to the trifurcation. Had abnormal HALLIE in August 2017. Complaining of increased claudication pain, HALLIE is worse in May. Did complex intervention in July 2019 with severe disease and deployment of 3 stents of the left SFA and popliteal artery using absolute Pro 6 x 60 followed by 6 x 80 and distally 6 x 100 with excellent results. Moderate to severe stenosis at the midright SFA with moderate disease at the trifurcation, patent stent in the right renal artery, mild disease at the left renal artery, heavily calcified abdominal aorta, complication with disruption of the long 6 [place] sheath that require significant maneuvering to remove the full catheter. Excellent results. ABIs done in September 2019, denies any increased claudication pain, will continue to monitor. Baseline EKG abnormality with sinus rhythm, first-degree AV block, left ventricular hypertrophy pattern early repolarization Acute on chronic renal insufficiency, history of chronic kidney disease stage II I. Deterioration in renal function due to aggressive diuresis. Renal function improved. Continue to monitor History of stroke over 20 years ago with mild residual facial droop and occasional slurred speech, no other residual weakness Hyperlipidemia, maintained on Lipitor 10 mg daily and niacin daily, controlled. Continue to monitor. Diabetes mellitus, management per medical services Arthritis, degenerative disc disease, back pain and lower extremity pain, possible referral for orthopedic surgeon History of tobaccoism stopped over 20 years ago. Supervisory-Addendum Brief Supervisory Addendum Participated in pt care: history, MDM, physical Personally performed: exam, history, MDM Care discussed with: MARIA A Results interpretation: Verified all documentation Notes: Patient was seen and evaluated with Sofía, examination performed, management plan was discussed, agree with the current scribed note, I made few changes to the note using Italic font Patient was seen at bedside, laying down comfortably Having mild epigastric pain Denied any chest pain or shortness of breath. Breathing is better maintained on nasal cannula Cardiac status is improving. Continue to monitor CHÁVEZ-LUCI,SOFÍA K PA Sep 18, 2021 08:17 DEYSI GREY MD Sep 18, 2021 10:03
[2021-09-18 08:24] VITALS: BP 142/64
[2021-09-18] MEDS: FUROSEMIDE 40 MG/4 ML INJ (LASIX) IVP SCH (08:48)
[2021-09-18] MEDS: meTOprolol SUCCINATE 100 MG (TOPROL XL) TAB PO SCH (08:49)
[2021-09-18] MEDS: metroNIDAZOLE 500 MG (FLAGYL) TAB PO SCH ×2 (08:49→13:42)
[2021-09-18] MEDS: SIMETHICONE 80 MG (MYLICON) CHEW PO SCH ×2 (08:49→13:42)
[2021-09-18] MEDS: ISOSORBIDE MONONITRATE 30 MG (IMDUR) TAB PO SCH (08:49)
[2021-09-18] MEDS: ASPIRIN E.C. 81 MG (ECOTRIN) TAB PO SCH (08:49)
[2021-09-18] MEDS: PANTOPRAZOLE 40 MG (PROTONIX) VIAL IV SCH (08:49)
[2021-09-18] MEDS: CLOPIDOGREL 75 MG (PLAVIX) TABLET PO SCH (08:50)
[2021-09-18] MEDS: polyethylene glycoL POWDER 17 GM (MIRALAX) PACK PO SCH (08:50)
--- NOTE | 2021-09-18 09:12 | Progress Note ---
Subjective Subjective Date Seen by Provider: Sep 18, 2021 Time Seen by Provider: 08:50 PT REPORTS THAT HE IS FEELING MUCH BETTER. MICHAEL REPORTS THAT HIS APPETITE IS A LITTLE LOW, BUT OVERALL HE IS FEELING BETTER. HE DENIES CHEST PAIN, DOES HAVE SOME SHORTNESS OF BREATH Review of Systems General: No Chills, No Night Sweats; Fatigue, Malaise, Appetite (IMPROVED); No Other HEENT: No Head Aches, No Visual Changes, No Eye Pain, No Ear Pain, No Dysphasia, No Sinus Congestion, No Post Nasal Drip, No Sore Throat, No Other Pulmonary: Dyspnea, Cough; No Pleuritic Chest Pain, No Other Cardiovascular: No: Chest Pain, Palpitations, Orthopnea, Paroxysmal Noc. Dyspnea, Edema, Lt Headedness, Other Gastrointestinal: Other (BLOATING IMPROVED); No: Nausea, Vomiting, Abdominal Pain Neurological: Weakness, Confusion (CHRONIC) All Other Systems Reviewed All Other Systems Reviewed: Yes Objective Exam Vital Signs Vital Signs Date Time Temp Pulse Resp B/P (MAP) Pulse Ox O2 Delivery O2 Flow Rate FiO2 09/18/21 08:24 37.4 92 20 142/64 (90) 96 High Flow N/C 1.50 09/18/21 07:43 89 09/18/21 07:13 96 High Flow N/C 1.50 09/18/21 03:56 36.9 87 20 150/62 (91) 94 High Flow N/C 1.50 09/18/21 02:01 97 High Flow N/C 1.50 09/18/21 01:00 88 09/17/21 23:22 36.8 85 20 162/64 (96) 95 High Flow N/C 1.50 09/17/21 20:46 High Flow N/C 1.50 09/17/21 20:29 92 High Flow N/C 1.50 09/17/21 19:33 36.9 90 20 149/66 (93) 96 High Flow N/C 1.50 09/17/21 19:00 90 09/17/21 16:00 37.0 91 20 175/73 (107) 94 High Flow N/C 1.50 09/17/21 15:14 93 High Flow N/C 1.50 09/17/21 13:00 83 09/17/21 12:31 37.1 94 18 146/67 95 Nasal Cannula 1.50 I & O 09/18/21 07:00 Intake Total 1920 ml Output Total 3075 ml Balance -1155 ml General Appearance: No Apparent Distress, WD/WN Eyes: Bilateral Eye PERRL HEENT: Pharynx Normal, Other (LEFT LOWER EYELID IRRITATED AND PINK) Neck: Full Range of Motion, Non Tender, Supple Respiratory: Chest Non Tender, Crackles (IMPROVING) Cardiovascular: Regular Rate, Rhythm Gastrointestinal: Normal Bowel Sounds, Non Tender, Distended (BUT SOFTER THAN YESTERDAY), Other (TYMPANITIC WITH BROWN/ALMONTE OUTPUT FROM NG TUBE) Extremity: Normal Capillary Refill, Normal Inspection, Normal Range of Motion, Non Tender, No Calf Tenderness, No Pedal Edema Neurologic/Psychiatric: Alert, Oriented x3 Skin: Normal Color, Warm/Dry Lymphatic: No Adenopathy Results Lab Laboratory Tests 09/17/21 11:37: Glucometer 226H 09/17/21 12:56: Lab Scanned Report Transfusion Reaction Form 09/17/21 18:09: Glucometer 237H 09/17/21 20:43: Glucometer 211H 09/17/21 23:21: Glucometer 192H 09/18/21 05:14: Glucometer 132H 09/18/21 05:26: White Blood Count 10.9, Red Blood Count 3.79L, Hemoglobin 9.5L, Hematocrit 31L, Mean Corpuscular Volume 83, Mean Corpuscular Hemoglobin 25, Mean Corpuscular Hemoglobin Concent 30L, Red Cell Distribution Width 13.5, Platelet Count 517H, Mean Platelet Volume 9.5, Immature Granulocyte % (Auto) 1, Neutrophils (%) (Auto) 68, Lymphocytes (%) (Auto) 11L, Monocytes (%) (Auto) 13H, Eosinophils (%) (Auto) 6, Basophils (%) (Auto) 1, Neutrophils # (Auto) 7.5, Lymphocytes # (Auto) 1.2, Monocytes # (Auto) 1.4H, Eosinophils # (Auto) 0.7H, Basophils # (Auto) 0.1, Immature Granulocyte # (Auto) 0.1, Sodium Level 139, Potassium Level 3.4L, Chloride Level 98, Carbon Dioxide Level 24, Anion Gap 17H, Blood Urea Nitrogen 24H, Creatinine 1.44H, Estimat Glomerular Filtration Rate 50, BUN/Creatinine Ratio 17, Glucose Level 136H, Calcium Level 8.7, Corrected Calcium 9.3, Magnesium Level 1.7, Total Bilirubin 0.6, Aspartate Amino Transf (AST/SGOT) 30, Alanine Aminotransferase (ALT/SGPT) 26, Alkaline Phosphatase 50, Total Protein 6.1L, Albumin 3.2 Microbiology 09/14/21 Blood Culture - Preliminary, Resulted No growth 09/14/21 Urine Culture - Final, Complete Gardnerella vaginalis Staph, Coag Neg (REPAIR CAMERAMAN) Strep anginosus Assessment/Plan Assessment/Plan Admission Dx CHEST PAIN STEMI DYSPNEA CHRONIC HYPERTENSION ELEVATED TROPONIN PNEUMONIA DIABETES MELLITUS ESOPHAGEAL REFLUX VASCULAR DEMENTIA Assessment and Plan CHEST PAIN STEMI DYSPNEA CHRONIC HYPERTENSION ELEVATED TROPONIN PNEUMONIA RESPIRATORY FAILURE DIABETES MELLITUS ESOPHAGEAL REFLUX RENAL FAILURE ANEMIA VASCULAR DEMENTIA ABDOMINAL DISTENTION CONSTIPATION ANXIETY UTI - GARDNERELLA VAGINALIS CHEST PAIN WITH DYSPNEA AND STEMI - MANAGED BY DR. GREY - SEE HIS PROCEDURE NOTE FROM HEART CATH ON ADMISSION - SMALL VESSEL DISEASE, AND DISEASE OF LAD. - MONITOR SYMPTOMS. - PT ON HYDRALAZINE UTI - GARDNERELLA VAGINALIS - STARTED ON FLAGYL, MONITOR SYMPTOMS - DC IQBAL CHRONIC HYPERTENSION - RESTARTED ANTIHYPERTENSIVE MEDICATIONS. RENAL FAILURE - STOP IV LASIX, MONITOR RENAL FUNCTION ON ORAL LASIX ANEMIA - STABLE AT THIS TIME PNEUMONIA WITH RESPIRATORY FAILURE - IMPROVED - PT WAS ON CEFEPIME - REGIMEN COMPLETED, STARTED ON ZOSYN 09/15/21 - MONITOR SERIAL CXR'S - 2 VIEW TODAY - PT IS DNR/DNI - PT HAS DECLINED THIS MANAGER CUSTOMER AND THE NURSING STAFF FROM REACHING OUT TO HIS DTR. - PT WEANED DOWN TO VAPOTHERM AND THEN MOVED TO 2.5L NC, CONTINUE TO WEAN DOWN ABLE ANXIETY - PRN ATIVAN ORDERED DIABETES MELLITUS - FSBS, SLIDING SCALE INSULIN ESOPHAGEAL REFLUX - CONTINUE WITH PPI THERAPY. VASCULAR DEMENTIA - SUPPORTIVE CARE PT STILL WEAK, RECOMMENDATION FOR RETIREMENT FOR ABOUT 2 WEEKS FOR STRENGTHENING - PT IS AGREEABLE TO THIS RECOMMENDATION AND HE STATES " I JUST WANT TO GET BETTER AND GO HOME QUICK I CAN SINCE I HAVE A DOG". Admission Dx CHEST PAIN STEMI DYSPNEA CHRONIC HYPERTENSION ELEVATED TROPONIN PNEUMONIA DIABETES MELLITUS ESOPHAGEAL REFLUX VASCULAR DEMENTIA Clinical Quality Measures Admission Status Admission Dx CHEST PAIN STEMI DYSPNEA CHRONIC HYPERTENSION ELEVATED TROPONIN PNEUMONIA DIABETES MELLITUS ESOPHAGEAL REFLUX VASCULAR DEMENTIA ROSANNE PAN MD Sep 18, 2021 09:12
--- NOTE | 2021-09-18 10:19 | Physical Therapy Daily Note ---
PT Daily Note-Current Subjective Patient agrees to PT. Mental Status Patient Orientation: Person, Time, Situation Attachments: Oxygen, Mccord Catheter, IV Transfers SCALE: Activities may be completed with or without assistive devices. 2-Lcvcboxlua-widakab completes the activity by him/herself with no assistance from a helper. 5-Set-up or Clean-up Assistance-helper sets up or cleans up; patient completes activity. [place] assists only prior to or following the activity. 4-Supervision or Touching Assistance-helper provides verbal cues and/or touching/steadying and/or contact guard assistance as patient completes activity. Assistance may be provided throughout the activity or intermittently. 3-Partial/Moderate Assistance-helper does LESS THAN HALF the effort. [place] lifts, holds or supports trunk or limbs, but provides less than half the effort. 2-Substantial/Maximal Assistance-helper does MORE THAN HALF the effort. [place] lifts or holds trunk or limbs and provides more than half the effort. 5-Kjiborybw-uwqvwb does ALL the effort. Patient does none of the effort to complete the activity. Or, the assistance of 2 or more helpers is required for the patient to complete the activity. If activity was not attempted, code reason: 7-Patient Refused. 9-Not Applicable-not attempted and the patient did not perform the activity before the current illness, exacerbation or injury. 10-Not Attempted due to Environmental Limitations-(lack of equipment, weather restraints, etc.). 88-Not Attempted due to Medical Conditions or Safety Concerns. Lying to Sitting/Side of Bed(Q: 3 Sit to Stand (QC): 2 Chair/Fka-rh-Qayzt Xfer(QC): 2 Patient improved with sit to stand, however, had difficulty with SPT to w/c for xray. Weight Bearing Full Weight Bearing Full Weight Bearing Gait Training Does the Patient Walk?: No and Walking Goal IS indicated Exercises Seated Therapy Exercises: Long arc quads Seated Reps: 15 Assessment Patient tolerates minimal activity and is up in recliner after xray with needs met. Increase activity as tolerated by patient. PT Correction Goals Correction Goals PT Sales Representative [employer] Goals Time Frame: Sep 27, 2021 Roll Left & Right (QC): 3 Sit to Lying (QC): 3 Lying-Sitting on Side/Bed(QC): 3 Sit to Stand (QC): 3 Chair/Rxw-xr-Mtgtj Xfer(QC): 3 Walk 10 feet (QC): 3 PT Plan Treatment/Plan Treatment Plan: Continue Plan of Care Treatment Plan: Bed Mobility, Education, Functional Activity Lona, Functional Strength, Gait, Safety, Therapeutic Exercise, Transfers Treatment Duration: Sep 27, 2021 Frequency: 6 times per week Estimated Hrs Per Day: .25 hour per day Time/GCodes Time In: 917 Time Out: 927 Total Billed Treatment Time: 10 Total Billed Treatment 1 visit FA 10 min GARTH DE LA O PT Sep 18, 2021 10:19
--- NOTE | 2021-09-18 10:54 | Diagnostic Imaging Report ---
INDICATION: Congestive failure with respiratory distress. COMPARISON: 09/16/2021. FINDINGS: Cardiomegaly remains present. 5 lobe interstitial and alveolar infiltrates are present. These have been continued slight decrease in the density when compared with previous exam. There are no consolidated infiltrates. Probable small bilateral pleural effusions. There is hyperaeration with flattening of the diaphragm. IMPRESSION: 1. Cardiomegaly with 5 lobe infiltrates consistent with congestive failure. There has been continued slight improvement since previous exam. Dictated by: Dictated on workstation # [id number]
[2021-09-18 12:00] VITALS: BP 122/61
--- NOTE | 2021-09-18 13:50 | Discharge Summary ---
Diagnosis/Chief Complaint Date of Admission Sep 07, 2021 at 11:39 Date of Discharge Discharge Date: Sep 18, 2021 Discharge Time: 13:00 Admission Diagnosis Admission Diagnosis CHEST PAIN STEMI DYSPNEA CHRONIC HYPERTENSION SEPSIS ELEVATED TROPONIN PNEUMONIA RESPIRATORY FAILURE DIABETES MELLITUS ESOPHAGEAL REFLUX RENAL FAILURE ANEMIA VASCULAR DEMENTIA ABDOMINAL DISTENTION CONSTIPATION ANXIETY Discharge Diagnosis CHEST PAIN STEMI DYSPNEA SEPSIS CHRONIC HYPERTENSION ELEVATED TROPONIN PNEUMONIA RESPIRATORY FAILURE DIABETES MELLITUS ESOPHAGEAL REFLUX RENAL FAILURE ANEMIA VASCULAR DEMENTIA ABDOMINAL DISTENTION CONSTIPATION ANXIETY UTI - GARDNERELLA VAGINALIS Reason Hospital Visit PT IS A 76 Y/O MALE WHO WAS ADMITTED TO THE HOSPITAL IN TRANSFER FROM [facility] EM[facility]PART[facility]. HE WAS FOUND TO HAVE ST ELEVATION, AND THE TRANSFER WAS FOR ACUTE MYOCARDIAL INFARCTION. PT WAS FOUND TO HAVE PULMONARY EDEMA, AND POSSIBLE PNEUMONIA ON FURTHER EVALUATION. THE PT WAS TAKEN FOR ACUTE TUB CHUCKER INTERVENTION ON ADMISSION. Discharge Summary Discharge Physical Examination Allergies: Coded Allergies: No Known Drug Allergies (Unverified , 07/19/15) Vitals & I&Os Vital Signs Date Time Temp Pulse Resp B/P (MAP) Pulse Ox O2 Delivery O2 Flow Rate FiO2 09/18/21 16:55 36.8 80 20 122/61 92 Room Air 09/18/21 08:24 1.50 General Appearance: Alert, Cooperative HEENT: Atraumatic, PERRLA, Mucous Memb Moist/[place] Respiratory: Clear to Auscultation, Normal Air Movement Cardiovascular: Regular Rate Abdominal: Normal Bowel Sounds, Soft, No Tenderness Extremities: No Cyanosis Skin: No Rashes, No Breakdown Neuro: Normal Speech Psych/Mental Status: Mood NL Hospital Course CHEST PAIN STEMI DYSPNEA CHRONIC HYPERTENSION ELEVATED TROPONIN PNEUMONIA RESPIRATORY FAILURE DIABETES MELLITUS ESOPHAGEAL REFLUX RENAL FAILURE ANEMIA VASCULAR DEMENTIA ABDOMINAL DISTENTION CONSTIPATION ANXIETY UTI - GARDNERELLA VAGINALIS CHEST PAIN WITH DYSPNEA AND STEMI - MANAGED BY DR. GREY - SEE HIS PROCEDURE NOTE FROM HEART CATH ON ADMISSION - SMALL VESSEL DISEASE, AND DISEASE OF LAD. - MONITOR SYMPTOMS. - PT ON HYDRALAZINE UTI - GARDNERELLA VAGINALIS, SEPSIS - RESOLVED - STARTED ON FLAGYL, MONITOR SYMPTOMS - DC IQBAL CHRONIC HYPERTENSION - RESTARTED ANTIHYPERTENSIVE MEDICATIONS. RENAL FAILURE - STOP IV LASIX, MONITOR RENAL FUNCTION ON ORAL LASIX ANEMIA - STABLE AT THIS TIME PNEUMONIA WITH RESPIRATORY FAILURE - IMPROVED - PT WAS ON CEFEPIME - REGIMEN COMPLETED, STARTED ON ZOSYN 09/15/21 - MONITOR SERIAL CXR'S - 2 VIEW TODAY - PT IS DNR/DNI - PT HAS DECLINED THIS FOOD SERVICES COORDINATOR AND THE NURSING STAFF FROM REACHING OUT TO HIS DTR. - PT WEANED DOWN TO VAPOTHERM AND THEN MOVED TO 2.5L NC, CONTINUE TO WEAN DOWN ABLE ANXIETY - PRN ATIVAN ORDERED DIABETES MELLITUS - FSBS, SLIDING SCALE INSULIN ESOPHAGEAL REFLUX - CONTINUE WITH PPI THERAPY. VASCULAR DEMENTIA - SUPPORTIVE CARE PT STILL WEAK, RECOMMENDATION FOR SKILLED NURSING FOR ABOUT 2 WEEKS FOR STRENGTHENING - PT IS AGREEABLE TO THIS RECOMMENDATION AND HE STATES " I JUST WANT TO GET BETTER AND GO HOME QUICK I CAN SINCE I HAVE A DOG". Pending Labs Discharge Condition at discharge IMPROVING Instructions to patient/family Please see electronic discharge instructions given to patient. Discharge Medications Reviewed and agree with Discharge Medication list on patient's Discharge Instruction sheet ROSANNE PAN MD Sep 18, 2021 13:50
[2021-09-18] MEDS ORDERED: HYDR-3923 PO (14:01)
[2021-09-18] MEDS ORDERED: MTP100TCR PO (14:01)
[2021-09-18] MEDS ORDERED: METR-145 PO (14:01)
[2021-09-18] MEDS ORDERED: ISOS30TA82 PO (14:01)
[2021-09-18] MEDS ORDERED: NITR0.4T42 SL (14:01)
[2021-09-18] MEDS ORDERED: CLOP75TA28 PO (14:01)
[2021-09-18] MEDS ORDERED: ATOR80TA76 PO (14:01)
[2021-09-18] MEDS ORDERED: IPRA3AMP31 INH (14:01)
[2021-09-18] MEDS ORDERED: ASPI-1238 PO (14:01)
[2021-09-18] MEDS ORDERED: ACET325T49 PO (14:01)
[2021-09-18] MEDS ORDERED: POTA-160 PO (14:01)
[2021-09-18] MEDS ORDERED: FURO40TA4 PO (14:01)
[2021-09-18] MEDS ORDERED: PANT40TA52 PO (14:01)
[2021-09-18] MEDS ORDERED: INSU100V16 SQ (14:01)
[2021-09-18] MEDS ORDERED: INSU100V5 SQ (14:01)
--- NOTE | 2021-09-18 14:02 | Discharge Inst-Skilled Nursing ---
Discharge Inst-Skilled NF Reconcile Patient Problems Problems Reviewed?: Yes Patient Instructions Patient Problems: CHEST PAIN STEMI DYSPNEA CHRONIC HYPERTENSION ELEVATED TROPONIN PNEUMONIA RESPIRATORY FAILURE DIABETES MELLITUS ESOPHAGEAL REFLUX RENAL FAILURE ANEMIA VASCULAR DEMENTIA ABDOMINAL DISTENTION CONSTIPATION ANXIETY UTI - GARDNERELLA VAGINALIS Consult/Follow Up/Orders Follow Up Appt.: 1 wk [facility] Skilled NF Admit to: Via [facility] (SNF) I certify that SNF services are required to be given on an inpatient basis because of the above named patient's need for nursing home care on a continuing basis for the conditions(s) for which he/she was receiving inpatient hospital services prior to his/her transfer to the [facility]. Prison Facility Order: Nursing Services, Bookkeeping Assistant-Evaluate & Treat, Physical Therapy-Evaluate & Treat, Speech Language-Evaluate & Treat Oxygen Delivery Method: Room Air Discharge Diet: ADA Diet Daily Activity as Tolerated: Yes Resuscitation Status: Do Not Resuscitate New & Resume Previous Orders Rosanne Turcios Sep 18, 2021 14:01 ROSANNE TURCIOS MD Sep 18, 2021 14:02
[2021-09-18 16:55] VITALS: BP 122/61
[2021-09-18] MEDS ORDERED: FUROSEMIDE 40 MG (LASIX) TAB PO SCH (17:00)
[2021-09-19] MEDS ORDERED: PANTOPRAZOLE 40 MG (PROTONIX) TAB PO SCH (09:00)
--- NOTE | 2021-09-19 11:09 | Physician Query Clarification ---
PQ-Uncertain Diagnosis Admission/Discharge Admission Date: Sep 07, 2021 at 11:39 Discharge Date: Sep 18, 2021 at 17:04 Dr. Turcios, The medical record reflects the following clinical scenario: History/Risk Factors: STEMI, acute on chronic systolic CHF, pneumonia, acute hypoxic respiratory failure Clinical Findings: Sepsis, elevated lactic acid. Could be secondary to acute myocardial infarction heart failure, lactic acid not listed in our documentation, WBC 8.9, P 83, R 18, BP 112/71 Treatment: IV Cefepime Question: Is sepsis a clinically valid diagnosis? Sepsis was documented in the Dr. Ryan's consult with no further documentation in the medical record. Please document a response in Progress Note or Discharge Summary. 1. Yes, clinically valid, condition resolved. 2. No, condition ruled out. 3. Other, with explanation of clinical findings. 4. Undetermined, no explanation for clinical findings. PHYSICIAN RESPONSE Diagnosis clinically valid: Yes, Conditon resolved Please remember a lack of response to the above will prompt a phone page by CDI/Coding staff. In responding to this query, please exercise your independent professional judgment. The purpose of this communication is to more accurately reflect the complexity of your patients condition. The fact that a question is asked does not imply that any particular answer is desired or expected. Thank you for your timely response to this clarification. Requestors name: Nestor THIS PHYSICIAN QUERY FORM IS A PERMANENT PART OF THE MEDICAL RECORD NESTOR SHEA Sep 19, 2021 11:09 ROSANNE TURCIOS MD Sep 23, 2021 11:45
== END 2021-09-18 17:04 | DRG 853 ==
LOC: CATH 10:46 → ICU 11:39 → 4TH 09-16 14:25
PROVIDERS: ADMIT Family Medicine; ATTEND Family Medicine
PROC: 027034Z Dilation of Coronary Artery, One Artery with Drug-eluting Intraluminal Device, Percutaneous Approach (ICD-10-PCS; principal; 2021-09-07)
PROC: B2111ZZ Fluoroscopy of Multiple Coronary Arteries using Low Osmolar Contrast (ICD-10-PCS; 2021-09-07)
PROC: 5A0935A Assistance with Respiratory Ventilation, Less than 24 Consecutive Hours, High Flow/Velocity Cannula (ICD-10-PCS; 2021-09-07)
PROC: B2101ZZ Fluoroscopy of Single Coronary Artery using Low Osmolar Contrast (ICD-10-PCS; 2021-09-08)
PROC: 5A09357 Assistance with Respiratory Ventilation, Less than 24 Consecutive Hours, Continuous Positive Airway Pressure (ICD-10-PCS; 2021-09-09)
DX: A41.9 Sepsis, unspecified organism (principal); I21.02 ST elevation (STEMI) myocardial infarction involving left anterior descending coronary artery; J96.01 Acute respiratory failure with hypoxia; J18.9 Pneumonia, unspecified organism; R57.0 Cardiogenic shock; I50.23 Acute on chronic systolic (congestive) heart failure; I13.0 Hypertensive heart and chronic kidney disease with heart failure and stage 1 through stage 4 chronic kidney disease, or unspecified chronic kidney disease; N17.9 Acute kidney failure, unspecified; E87.2 Acidosis; N39.0 Urinary tract infection, site not specified; Z66 Do not resuscitate; E11.22 Type 2 diabetes mellitus with diabetic chronic kidney disease; N18.30 Chronic kidney disease, stage 3 unspecified; Z79.4 Long term (current) use of insulin; I25.10 Atherosclerotic heart disease of native coronary artery without angina pectoris; I70.203 Unspecified atherosclerosis of native arteries of extremities, bilateral legs; I70.1 Atherosclerosis of renal artery; I70.0 Atherosclerosis of aorta; I25.5 Ischemic cardiomyopathy; I08.0 Rheumatic disorders of both mitral and aortic valves; I69.392 Facial weakness following cerebral infarction; I69.328 Other speech and language deficits following cerebral infarction; I27.20 Pulmonary hypertension, unspecified; E78.5 Hyperlipidemia, unspecified; F01.50 Vascular dementia, unspecified severity, without behavioral disturbance, psychotic disturbance, mood disturbance, and anxiety; K59.00 Constipation, unspecified; F41.9 Anxiety disorder, unspecified; B96.89 Other specified bacterial agents as the cause of diseases classified elsewhere; Z87.891 Personal history of nicotine dependence; Z95.5 Presence of coronary angioplasty implant and graft; Z95.820 Peripheral vascular angioplasty status with implants and grafts; Z82.49 Family history of ischemic heart disease and other diseases of the circulatory system; Z79.82 Long term (current) use of aspirin
CPT/HCPCS: 36415; 36600; 71045; 71046; 74018; 80048; 80053; 80061; 81000; 82728; 82805; 82947; 83540; 83550; 83735; 83880; 84145; 84484; 85007; 85025; 85027; 85347; 86850; 86900; 86901; 86920; 87040; 87077; 87088; 93005; 93306; 93454; 94640; 94660; 94760; 94761